=== PATIENT | female | born 1935 | race Caucasian/White ===

== ENCOUNTER 2017-09-22 09:17 | Emergency (ER) | payer MEDICARE, OTHER, SELFPAY ==
[2017-09-22 09:18] VITALS: BP 159/62; PULSE 60; RESP 14; TEMP 36.6; O2SAT 98; BMI 34.9
--- NOTE | 2017-09-22 10:05 | RAD_ITS ---
STUDY: X-RAY - LEFT ANKLE REASON FOR EXAM: Female, 82 years old. Left ankle pain. No history of injury. TECHNIQUE: 3 view(s) of the ankle. COMPARISON: None. FINDINGS: Normal visualized distal tibia and fibula. Normal medial and lateral malleoli. Normal tibiotalar articulation and ankle mortise. Normal visualized talus and calcaneus. The visualized subtalar, talonavicular, calcaneocuboid and tarsal articulations are normal. Soft tissue swelling of the lateral aspect of the ankle. RAD/Ankle min 3 Views IMPRESSION: Soft tissue swelling. No demonstrated acute osseous changes. Electronically Signed: Shahzad Santos MD at 10:31 EST Tel , Service support ,
[2017-09-22] MEDS: oxyCODONE 5 MG Tablet PO ×2 (10:07→10:48)
--- NOTE | 2017-09-22 10:28 | ED.DCSUM_ITS ---
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 She reports that she has left ankle pain that began 5 days ago. It is gradually gotten worse. She states that overnight has become acutely worse. She has a sharp pain is 9 out of 10 with walking or movement. Is 4 out of 10 at rest. She denies any numbness or weakness. She denies any trauma. She denies any constitutional symptoms. No fever, chills, nausea, or vomiting. She is on Xarelto for atrial fibrillation. Physical Examination: Vitals: Stable. Afebrile. General: Well-nourished and well-developed. Head: Normocephalic atraumatic. Neck: Supple, no lymphadenopathy. No JVD. Nontender. Cardiovascular: Regular rate and rhythm. 2 out of 6 systolic murmur. Respiratory: No respiratory distress. Clear to auscultation bilaterally. Abdominal: Soft, nontender, nondistended, normal bowel sounds. No guarding, rebound, or peritoneal signs. Back: Nontender. Extremities: Mild tenderness palpation over both the medial and lateral malleoli. There is minimal pain with range of motion. There is no overlying erythema or warmth to suggest a septic joint. She is a 2+ dorsalis pedis pulse bilaterally. Her foot is nontender. Her calf is nontender. Skin: Normal color, no rash. Neurologic: Alert and oriented ?3. Cranial nerves II through XII are intact. Normal strength and sensation. Psych: Normal affect. Test Results: Left ankle x-ray shows degenerative changes and no acute disease. Emergency Department Course and Treatment: Patient was treated with prednisone and Percocet p.o. She is resting comfortably. Treatment Plan: I had a prolonged discussion with the patient about her symptoms. I asked whether this is similar to the gout that she has had previously. She reports that the pain is worse than that. I suspect that she has gout in her left ankle. She does not want an arthrocentesis performed. I feel that is a reasonable course of action as I have no indication that this is a septic joint. She will be discharged on prednisone, Percocet, and Colace. Instructed to follow-up with her primary care physician in 1 week if not improving. Return to the emergency department for any worsening symptoms. Disposition: To home in improved and stable condition. Impression: 1. Left ankle pain, acute. 2. History of gout. This note was generated with [employer] dictation software. It may contain incorrect words, spelling, and punctuation that were not noted in review of the chart prior to signing ED Disposition - Plan for ED Patient: Chief Complaint: Lower Extremity Injury Instructions: ED Arthritis Gout Prescriptions: Oxycodone HCl/Acetaminophen [Percocet 5/325] 1 tablet PO Q6H PRN PRN 3 Days #20 tablet PRN Reason: Pain Docusate Sodium [Colace] 100 mg PO DAILY #20 capsule Prednisone 10 mg PO DAILY #63 tablet Referrals: Rohan Baker MD [Primary Care Provider] - 1 Week if not improving
== END 2017-09-22 10:53 | disposition home or self-care (01) ==
PROVIDERS: Emergency Provider Emergency Medicine; Family Provider Family Medicine; PCP Family Medicine
DX: M25.572 Pain in left ankle and joints of left foot (principal); I48.91 Unspecified atrial fibrillation; I10 Essential (primary) hypertension; Z79.01 Long term (current) use of anticoagulants; Z79.899 Other long term (current) drug therapy; Z86.39 Personal history of other endocrine, nutritional and metabolic disease
CPT/HCPCS: 73610; 99283

== ENCOUNTER 2017-09-25 21:59 | Emergency (ER) | payer MEDICARE, OTHER, SELFPAY ==
[2017-09-25 22:01] VITALS: BP 205/84; PULSE 65; RESP 15; TEMP 36.6; BMI 34.3
[2017-09-25 22:40] VITALS: BP 188/77; PULSE 68; RESP 16; O2SAT 95
[2017-09-25 23:18] VITALS: BP 169/63; PULSE 60; RESP 16; O2SAT 95
[2017-09-25 23:34] VITALS: BP 182/71; PULSE 56; RESP 16; O2SAT 96
[2017-09-25 23:53] VITALS: BP 169/67
--- NOTE | 2017-09-26 00:05 | ED.VISSUMM ---
- ER Visit Summary Date of Service: 09/26/17 Chief Complaint: Elevated blood pressure History of Present Illness: The patient is a [address] of hypertension who presents because of elevated blood pressure. Blood pressure was assessed because son noted that her cheeks were flushed. She was with her daughter who is a patient in the emergency department when her cheeks became flushed. Son states her blood pressure was elevated earlier this evening. She states systolic is normally in the 140s. She believes she is under stress because her daughter has metastatic small cell carcinoma the lung was brought to the emergency department because of fever chills and not doing well. She denies headache, visual, ocular or auditory symptoms. Denies trouble with speech or swallowing. She denies any chest pain or back pain. She denies nausea vomiting. She denies paresthesia, anesthesia moderates. She denies trouble walking or problems with balance. She states she took her blood pressure medicine. Please review written note for complete detail Physical Examination: Patient is a pleasant elderly woman who appears in no distress. Initial blood pressure was 205/84. Heart rate is 68, respirations 16 and pulse ox 95% on room air. Temperature is 97.9. Head is atraumatic normocephalic. Pupils are equal round reactive. Extraocular muscles are intact. TMs are pearly white with landmarks noted. Nares patent with no drainage. Posterior pharynx without erythema or exudate. Uvula is midline. There is no dysphonia or dysphasia. Trachea is midline. There is no stridor with auscultation of the neck. Difficult to see fundi. Trach is midline. There is no carotid bruits noted. Heart is regular without murmur, gallop or rub. S1 and S2 are normal. Lungs are clear to auscultation with good movement of air bilaterally. Abdomen is soft nontender. Patient is alert and oriented ?3. Motor is 5 over 5. Sensory is intact. DTRs are symmetric with no clonus or Babinski sign. Cranial 2 through 12 are intact. Cerebellar testing is normal. Gait was observed that she walked from daughter's room to room 9 and is normal. Test Results: Initial blood pressure at 2201 was 205/84. Blood pressure was reassessed at 2240 and was 188/71. Blood pressure was assessed again at 2318 and blood pressure was 160/63. Most recent blood pressure at 2354 was 167/67. Emergency Department Course and Treatment: Patient admits she is under stress is asymptomatic will have blood pressure reassessed several times. If there is no improvement will obtain BMP and UA looking for endorgan injury. Treatment Plan: Discharge to home with appropriate home-going instruction and follow-up with primary care physician Dr. Baker in 1-2 weeks to have blood pressure reassessed. Disposition: Discharge to home in stable condition Impression: Asymptomatic hypertension in patient with hypertension This note was generated with [employer] - 3P dictation software. It may contain incorrect words, spelling, and punctuation that were not noted in review of the chart prior to signing ED Disposition - Plan for ED Patient: Disposition: Home or Assisted Living Chief Complaint: Hypertension Instructions: ED HTN Established Referrals: Rohan Baker MD [Primary Care Provider] - 1-2 Weeks Additional Instructions: You should make an appointment with Dr. Baker to have your blood pressure reassessed in 1-2 weeks. If you have any symptoms that are concerning i.e. headache, change in your vision, trouble with speech or swallowing, numbness tingling in your extremities or weakness of your extremities, problems with balance or walking return to the emergency department immediately
[2017-09-26 00:17] VITALS: BP 166/66; PULSE 86; RESP 16; O2SAT 98
== END 2017-09-26 00:17 | disposition home or self-care (01) ==
PROVIDERS: Emergency Provider Emergency Medicine; Family Provider Family Medicine; PCP Family Medicine
DX: I10 Essential (primary) hypertension (principal); K21.9 Gastro-esophageal reflux disease without esophagitis; E03.9 Hypothyroidism, unspecified; Z87.891 Personal history of nicotine dependence; I48.91 Unspecified atrial fibrillation; Z79.899 Other long term (current) drug therapy; Z79.01 Long term (current) use of anticoagulants
CPT/HCPCS: 99282

== ENCOUNTER → 2017-11-05 09:51 | Outpatient (CLI) | payer MEDICARE, OTHER, SELFPAY ==
[2017-11-05 12:29] LABS: AST(SGOT) 21 U/L (15-37); Alanine Aminotransfer ALT/SGPT 25 U/L (13-56); Albumin, Serum 3.7 g/dL (3.2-5.0); Alkaline Phosphatase 90 U/L (45-117); Bilirubin, Direct 0.11 mg/dL (0.00-0.30); Cholesterol 172 mg/dL (200); Globulin 3.5 g/dL (2.2-4.2); High Density Lipoprotein 90 mg/dL; Protein, Total 7.2 g/dL (6.4-8.2); T4 Free Direct 1.49 ng/dL (0.76-1.46); Thyroid Stim Hormone (TSH) 2.83 uIU/mL (0.358-3.74); Triglycerides 98 mg/dL; Very Low Density Lipoprotein 20 mg/dL (5-40)
--- NOTE | 2017-11-05 12:33 | PFT ---
INTRODUCTION: The patient is an 82-year-old female currently under the care of Dr. Mancini that presents for pulmonary function testing secondary to a diagnosis of shortness of breath. Respiratory therapy reports good patient effort and reports no other concerns. Bronchodilators were used during testing. INTERPRETATION: Forced expiration spirometry demonstrates no evidence of a large airways obstructive ventilatory defect. There was no significant response to aerosolized bronchodilators, based upon strict ATS criteria. Spirograms are of good quality and plateau normally. Body plethysmography was performed and reveals a decreased TLC to 4.1 L, 84% of predicted, indicative of a mild restrictive ventilatory defect. Diffusing capacity by single breath CO is moderately reduced at 57% of predicted. IMPRESSION: These pulmonary function studies demonstrate the presence of a mild restrictive ventilatory impairment with a disproportionate reduction in diffusing capacity, which could be related to an underlying pulmonary vascular disorder, such as pulmonary hypertension. There are no previous pulmonary function studies available for comparison.
== END ==
PROVIDERS: Family Provider Family Medicine; PCP Family Medicine; Visit Provider Internal Medicine Cardiovascular Disease
DX: I48.92 Unspecified atrial flutter (principal); I48.0 Paroxysmal atrial fibrillation; I27.21 Secondary pulmonary arterial hypertension; E78.5 Hyperlipidemia, unspecified; Z79.899 Other long term (current) drug therapy
CPT/HCPCS: 36415; 80061; 80076; 84439; 84443; 94060; 94726; 94729

== ENCOUNTER 2018-02-14 10:41 | Observation (INO) | payer MEDICARE, OTHER, SELFPAY ==
[2018-02-14] VITALS (14 sets, daily range): BP systolic 107–208; BP diastolic 56–103; PULSE 48–59; RESP 14–19; TEMP 36.6–36.8; O2SAT 93–100; BMI 35.0; BMI 35.2
--- NOTE | 2018-02-14 11:05 | CT_ITS ---
STUDY: CT BRAIN WITHOUT CONTRAST REASON FOR EXAM: Female, 82 years old. Dizziness. Hypertension. Stroke RADIATION DOSAGE (If Supplied By Facility): CTDIvol = ( 44.99 ) mGy, DLP = ( 812.98 ) mGycm TECHNIQUE: Transaxial CT imaging of the brain was performed without administration of intravenous contrast material. Individualized dose optimization techniques were used for this CT. COMPARISON: September 23, 2014 FINDINGS: Normal soft tissue structures. Normal calvarium. There is mild cerebral atrophy with widening of the extra-axial spaces and ventricular dilatation. There are areas of decreased attenuation within the white matter tracts of the supratentorial brain, consistent with microvascular disease changes. Normal basal ganglia and thalami. Normal brainstem. Normal cerebellum. There is no intracranial hemorrhage. There are no findings of an acute ischemic infarction. Normal visualized paranasal sinuses. CT/Brain/Head without Contrast IMPRESSION: Chronic involutional changes of the brain. No hemorrhage. Electronically Signed: Frederick Gunderson MD at 12:50 EDT , Service support ,
--- NOTE | 2018-02-14 11:05 | EKG12_ITS ---
Test Reason : DIZZY Blood Pressure : / mmHG Vent. Rate : 053 BPM Atrial Rate : 053 BPM P-R Int : 192 ms QRS Dur : 094 ms QT Int : 486 ms P-R-T Axes : 026 042 024 degrees QTc Int : 456 ms Sinus bradycardia Otherwise normal ECG Confirmed by ANJUM HARLEY ([id number]), purchase request editor ANGELIKA NGUYEN ([id number]) on 02/18/2018 1:43:51 PM Referred By: YELENA Confirmed By:ANJUM HARLEY
--- NOTE | 2018-02-14 11:50 | RAD_ITS ---
STUDY: X-RAY CHEST REASON FOR EXAM: Female, 82 years old. Hypertension. Dizziness. TECHNIQUE: Single AP portable view of the chest. COMPARISON: December 16, 2016 FINDINGS: There are monitoring devices. The lungs are clear and expanded. There is no demonstrated pleural abnormality. Normal size heart. Normal mediastinum and vinod. Normal visualized pulmonary arteries. Normal visualized aortic arch and descending thoracic aorta. There is demineralization of the osseous structures. Normal visualized ribs, clavicles, and shoulders. There is no demonstrated abnormality of the visualized soft tissue structures of the upper abdomen. RAD/Chest 1 View IMPRESSION: Normal x-ray examination of the chest. Electronically Signed: Frederick Gunderson MD at 12:02 EDT , Service support ,
[2018-02-14 12:31] LABS: Bedside Glucose 98 mg/dL (70-110)
[2018-02-14 13:00] LABS: Absolute Lymphocyte Count 1.84 X10^3/ul (0.83-4.51); Absolute Neutrophil Count 6.2 X10^3/uL (2.0-7.7); Basophil# 0.04 X10^3/uL; Basophil% 0.5 % (0-1); Eosinophil# 0.16 X10^3/uL; Eosinophils% 1.8 % (0-5); Hematocrit 37.9 % (37-47); Hemoglobin 11.4 g/dl (12.0-15.0); Lymphocyte # 1.84 X10^3/ul (4.0); Lymphocyte % 20.7 % (19-41); Mean Corp Hgb Conc 30.1 g/gl (32-36); Mean Corpuscular Hgb 22.8 pg (27.0-32.0); Mean Platelet Vol. 9.7 fl (6.2-12.0); Monocyte# 0.61 X10^3/uL; Monocyte% 6.9 % (0-10); Neutrophil # 6.21 X10^3/uL (2.7-7.7); Neutrophil % 69.9 % (47-70); Platelet Count 250 K/mm3 (150-450); RBC Distribution Width CV 16.9 % (11.6-14.6); Red Blood Count 4.99 M/mm3 (4.2-5.4); White Blood Count 8.9 K/mm3 (4.4-11.0)
[2018-02-14 13:01] LABS: POSITIVE COUNT NO; POSITIVE DIFFERENTIAL NO; POSITIVE MORPHOLOGY NO
[2018-02-14 13:04] LABS: International Normalized Ratio 2.9; Prothrombin Time (Protime)PT. 30.2 SECONDS (11.7-14.9)
[2018-02-14 13:05] LABS: Partial Thromboplast Time 33.7 Seconds (24.1-36.2)
[2018-02-14 13:16] LABS: Anion Gap 6 (5-15); BUN 33 mg/dL (7-18); BUN/Creat Ratio 22.8 RATIO (10-20); Calcium,Total 9.5 mg/dL (8.5-10.1); Chloride 102 mmol/L (98-107); Creatinine, Serum 1.45 mg/dL (0.55-1.02); EST Glomerular Filtration Rate 37 mL/min (>60); Est Glom Filt Rate - Afr Amer 44 mL/min (>60); Estimated Creatinine Clearance 25.83 ml/min; Glucose 93 mg/dL (74-106); Potassium 4.5 mmol/L (3.5-5.1); Sodium Level 138 mmol/L (136-145)
--- NOTE | 2018-02-14 13:26 | ED.VISSUMM ---
- ER Visit Summary Date of Service: 02/14/18 Chief Complaint: [Dizziness] History of Present Illness: The patient is a 82 F [presents to the emergency department complaint of dizziness for the last 3 days. Patient states that her tongue is tingling mostly involving the distal half of the tongue. Patient denies any focal weakness. She denies any speech difficulty. Patient denies any visual changes. Patient denies any falls or head injuries. Patient is currently on Xarelto due to history of atrial fibrillation. Patient denies any new medications. She denies fever or recent illness. Patient describes the dizziness more of a lightheaded feeling rather than a vertiginous feeling. Patient can feel lightheaded weather at rest and sitting or standing and walking. She denies any chest pain or shortness of breath. Patient denies any palpitations.] Physical Examination: [HEENT-PERRLA, EOMI. Cranial nerves II through XII grossly intact. TMs clear. Mucous membranes moist. No adenopathy. Cardiovascular-regular rate and rhythm without murmur or ectopy Lungs-clear to auscultation, chest wall stable without crepitus or subcu emphysema Abdomen-normoactive bowel sounds, soft, nontender, no rebound or rigidity, no peritoneal signs. Neuro kzlq-ejpaei-fbtn and heel huang testing within normal limits, negative Romberg, negative pronator drift, fundi benign, no focal weakness. Extremities-intact ?4, normal range of motion, normal pulses, atraumatic] Test Results: [EKG obtained on arrival showed sinus bradycardia with a ventricular rate of 53 bpm with no acute ST segment changes. CBC with differential obtained showed a white count of 8.9, hemoglobin 11, hematocrit 38, platelets 250. Chemistries unremarkable. INR was 2.9. Troponin was less than 0.015. Calcium was 9.5. CT scan of the brain without contrast showed chronic involutional changes. Chest x-ray showed nothing acute.] Emergency Department Course and Treatment: [] Treatment Plan: [Admit for further workup and evaluation] Disposition: [Admit] Impression: [Dizziness-etiology uncertain Paresthesias of tongue] This note was generated with [employer] System[employer] software. It may contain incorrect words, spelling, and punctuation that were not noted in review of the chart prior to signing ED Disposition - Plan for ED Patient: Chief Complaint: Dizziness Referrals: Urban Ceja MD [Primary Care Provider] -
--- NOTE | 2018-02-14 13:30 | ED.DCSUM_ITS ---
- ER Visit Summary Date of Service: 02/14/18 Chief Complaint: [Dizziness] History of Present Illness: The patient is a 82 F [presents to the emergency department complaint of dizziness for the last 3 days. Patient states that her tongue is tingling mostly involving the distal half of the tongue. Patient denies any focal weakness. She denies any speech difficulty. Patient denies any visual changes. Patient denies any falls or head injuries. Patient is currently on Xarelto due to history of atrial fibrillation. Patient denies any new medications. She denies fever or recent illness. Patient describes the dizziness more of a lightheaded feeling rather than a vertiginous feeling. Patient can feel lightheaded weather at rest and sitting or standing and walking. She denies any chest pain or shortness of breath. Patient denies any palpitations.] Physical Examination: [HEENT-PERRLA, EOMI. Cranial nerves II through XII grossly intact. TMs clear. Mucous membranes moist. No adenopathy. Cardiovascular-regular rate and rhythm without murmur or ectopy Lungs-clear to auscultation, chest wall stable without crepitus or subcu emphysema Abdomen-normoactive bowel sounds, soft, nontender, no rebound or rigidity, no peritoneal signs. Neuro nkom-tcxhsd-vtrw and heel hunag testing within normal limits, negative Romberg, negative pronator drift, fundi benign, no focal weakness. Extremities-intact ?4, normal range of motion, normal pulses, atraumatic] Test Results: [EKG obtained on arrival showed sinus bradycardia with a ventricular rate of 53 bpm with no acute ST segment changes. CBC with differential obtained showed a white count of 8.9, hemoglobin 11, hematocrit 38 , platelets 250. Chemistries unremarkable. INR was 2.9. Troponin was less than 0.015. Calcium was 9.5. CT scan of the brain without contrast showed chronic involutional changes. Chest x-ray showed nothing acute.] Emergency Department Course and Treatment: [] Treatment Plan: [Admit for further workup and evaluation] Disposition: [Admit] Impression: [Dizziness-etiology uncertain Paresthesias of tongue] This note was generated with [employer] software. It may contain incorrect words, spelling, and punctuation that were not noted in review of the chart prior to signing ED Disposition - Plan for ED Patient: Chief Complaint: Dizziness Referrals: Urban Ceja MD [Primary Care Provider] -
--- NOTE | 2018-02-14 14:36 | NURSING ---
CALLED TO ER CHARGE-NO ANSWER, WAS BUSY. CALLED 2 TIMES W/ NO ANSWER. CALLED ER AND TOLD THEM CHARGE PHONE WAS BUSY AND WAS OKAY TO SEND UP PT. CALLED AT 1436.
--- NOTE | 2018-02-14 14:40 | PCM.CONS.GEN ---
Problem List (1) Light headedness Status: Acute Reason for Consult Date of Consultation: 02/14/18 Reason for Consultation: light headedness and tongue tingling History of Present Illness: The patient is a 82 year old CF with PMH HTN, HLD, Afib on Xarelto, hypothyroidism, H/O lower back surgery admitted with light headedness and tongue tingling. Per patient she has been having some light headedness/dizziness for the past 1 week, denies any fall, or balance issues, does not use cane or walker to ambulate, does not need any assistance with his ADLs, denies any ear ache, or tinnitus. Per patient has been having tingling in the tongue for the past 2-3 days, but denies any change in taste sensation, facial droop, denies any CONNOR, visual disturbances, speech disturbances, focal motor weakness or sensory loss. Denies any syncope. 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 Hypothyroidism (Chronic) E03.9 GERD (gastroesophageal reflux disease) (Chronic) K21.9 Hyperlipidemia (Chronic) E78.5 Hypertension (Chronic) I10 Paroxysmal atrial fibrillation (Chronic) I48.0 Allergies No Known Allergies Allergy (Verified 02/14/18 10:42) Home Medications: Ambulatory Orders Medication Instructions Recorded Valsartan/Hydrochlorothiazide 1 tab PO DAILY 10/01/16 [Diovan Hct 320-25 mg Tablet] Amiodarone HCl [Cordarone] 200 mg PO DAILY 09/22/17 Levothyroxine Sodium [Levoxyl] 100 mcg PO DAILY 09/22/17 Metoprolol Succinate 100 mg PO DAILY 09/22/17 simvastatin 40 mg tablet 40 mg PO DAILY 10/13/17 lansoprazole 30 mg capsule,delayed 30 mg PO DAILY cap 10/14/17 release Acetaminophen [Tylenol] 650 mg PO QHS 02/14/18 Rivaroxaban [Xarelto] 15 mg PO DAILY 02/14/18 Thera-Tears 2 drop EACH EYE BID 02/14/18 Surgical History: Surgical History (Last Updated 02/14/18 @ 10:49 by Nehal Kaufman) History of left heart catheterization (Chronic) Onset Date: 09/30/14 Z98.890 H/O knee surgery Z98.890 History of Z98.891 History of back surgery Z98.890 Surgical History: no surgical history, - - , knee repair Psychiatric History: No pertinent psych hx [employer] History: 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 Lives: - - with son Smoking Status: Former smoker Alcohol: None Drugs: None - *Family History Maternal History Items: No pertinent history Paternal History Items: No pertinent history Review of Systems Constitutional: Reports: - - complete ROS negative except as documented in HPI Patient Problems: Active and Suspected Problems (Last Reviewed 10/14/17 @ 13:28 by Armida Blackburn) Light headedness (Acute) - Physical Exam General: Alert HEENT: Normocephalic Neck: Supple Lungs: Clear to auscultation Cardiovascular: Normal S1, Normal S2 Abdomen: Bowel Sounds Present Extremities: No cyanosis Skin: No rashes Musculoskeletal: No Tenderness to Palpation of Joints or Extremities Neurological: - - consious, alert, AoAx3, CN 2-12 grossly intact, power 5/5 all 4 extremities, no sensory loss, no cerebellar signs, gait deferred, Reflexes + B/L B/S/T/K/A Vital Signs Temp Pulse Resp BP Pulse Ox 98.3 F 53 L 16 204/75 H 94 02/14/18 10:43 02/14/18 13:59 02/14/18 13:59 02/14/18 13:59 02/14/18 13:59 Oxygen Flow Rate (L/min) 2 Oxygen Delivery Method Room Air Weight: 92.533 kg Body Mass Index (BMI) 35.0 Finger Stick Blood Glucose 98 Laboratory Tests Past 24 Hrs 02/14/18 02/14/18 02/14/18 12:43 12:43 12:43 WBC 8.9 RBC 4.99 Hgb 11.4 L Hct 37.9 MCV 76.0 L MCH 22.8 L MCHC 30.1 L RDW 16.9 H RDW Differential 47.0 H Plt Count 250 MPV 9.7 Immature Gran % (Auto) 0.200 Neut % (Auto) 69.9 Lymph % (Auto) 20.7 [place] % (Auto) 6.9 Eos % (Auto) 1.8 Baso % (Auto) 0.5 Absolute Neuts (auto) 6.2 Absolute Lymphs (auto) 1.84 Total Counted Not Reportable PT 30.2 H INR 2.9 APTT 33.7 Sodium 138 Potassium 4.5 Chloride 102 Carbon Dioxide 30.0 Anion Gap 6 BUN 33 H Creatinine 1.45 H Estim Creat Clear Calc 25.83 Est GFR (MDRD) Af Amer 44 L Est GFR (MDRD) Non-Af 37 L BUN/Creatinine Ratio 22.8 H Glucose 93 Calcium 9.5 Troponin I < 0.015 POC Glucose 02/14/18 12:27 POC Glucose 98 Assessment/Plan All Active Problems (Last Reviewed 10/14/17 @ 13:28 by Armida Blackburn) Light headedness (Acute) Secondary pulmonary arterial hypertension (Resolved) The patient is a 82 year old CF with PMH HTN, HLD, Afib on Xarelto, hypothyroidism, H/O lower back surgery admitted with light headedness/dizziness and tongue tingling. Per patient she has been having some light headedness for the past 1 week, denies any fall, or balance issues, does not use cane or walker to ambulate, does not need any assistance with his ADLs, denies any ear ache, or tinnitus. Per patient has been having tingling in the tongue for the past 2-3 days, but denies any change in taste sensation, facial droop, denies any CONNOR, visual disturbances, speech disturbances, focal motor weakness or sensory loss. Denies any syncope. Impression Light headed Tingling in the tongue/paresthesias Uncontrolled HTN Plan -MRI brain and MRA head/neck -On Xarelto -On Zocor -Better BP control, will defer to primary team -Check Orthostatic vitals -GI/DVT prophylaxis -Please call with questions if any -Thank you for allowing us to participate in patients care and management I spent 60 minutes of critical care time taking history, doing physical examination, reviewing medical records, coordinating care and counseling the patient and her son Code Visit Inpatient E&M: [id number] Init Hosp L3
--- NOTE | 2018-02-14 14:49 | CON.PCM_ITS ---
Problem List (1) Light headedness Status: Acute Reason for Consult Date of Consultation: 02/14/18 Reason for Consultation: light headedness and tongue tingling History of Present Illness: The patient is a 82 year old CF with PMH HTN, HLD, Afib on Xarelto, hypothyroidism, H/O lower back surgery admitted with light headedness and tongue tingling. Per patient she has been having some light headedness/ dizziness for the past 1 week, denies any fall, or balance issues, does not use cane or walker to ambulate, does not need any assistance with his ADLs, denies any ear ache, or tinnitus. Per patient has been having tingling in the tongue for the past 2-3 days, but denies any change in taste sensation, facial droop, denies any CONNOR, visual disturbances, speech disturbances, focal motor weakness or sensory loss. Denies any syncope. 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 Hypothyroidism (Chronic) E03.9 GERD (gastroesophageal reflux disease) (Chronic) K21.9 Hyperlipidemia (Chronic) E78.5 Hypertension (Chronic) I10 Paroxysmal atrial fibrillation (Chronic) I48.0 Allergies No Known Allergies Allergy (Verified 02/14/18 10:42) Home Medications: Ambulatory Orders Medication Instructions Recorded Valsartan/Hydrochlorothiazide 1 tab PO DAILY 10/01/16 [Diovan Hct 320-25 mg Tablet] Amiodarone HCl [Cordarone] 200 mg PO DAILY 09/22/17 Levothyroxine Sodium [Levoxyl] 100 mcg PO DAILY 09/22/17 Metoprolol Succinate 100 mg PO DAILY 09/22/17 simvastatin 40 mg tablet 40 mg PO DAILY 10/13/17 lansoprazole 30 mg capsule,delayed 30 mg PO DAILY cap 10/14/17 release Acetaminophen [Tylenol] 650 mg PO QHS 02/14/18 Rivaroxaban [Xarelto] 15 mg PO DAILY 02/14/18 Thera-Tears 2 drop EACH EYE BID 02/14/18 Surgical History: Surgical History (Last Updated 02/14/18 @ 10:49 by Nehal Kaufman) History of left heart catheterization (Chronic) Onset Date: 09/30/14 Z98.890 H/O knee surgery Z98.890 History of Z98.891 History of back surgery Z98.890 Surgical History: no surgical history, - - , knee repair Psychiatric History: No pertinent psych hx 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 Lives: - - with son Smoking Status: Former smoker Alcohol: None Drugs: None - *Family History Maternal History Items: No pertinent history Paternal History Items: No pertinent history Review of Systems Constitutional: Reports: - - complete ROS negative except as documented in HPI Patient Problems: Active and Suspected Problems (Last Reviewed 10/14/17 @ 13:28 by Armida Blackburn) Light headedness (Acute) - Physical Exam General: Alert HEENT: Normocephalic Neck: Supple Lungs: Clear to auscultation Cardiovascular: Normal S1, Normal S2 Abdomen: Bowel Sounds Present Extremities: No cyanosis Skin: No rashes Musculoskeletal: No Tenderness to Palpation of Joints or Extremities Neurological: - - consious, alert, AoAx3, CN 2-12 grossly intact, power 5/5 all 4 extremities, no sensory loss, no cerebellar signs, gait deferred, Reflexes + B /L B/S/T/K/A Vital Signs Temp Pulse Resp BP Pulse Ox 98.3 F 53 L 16 204/75 H 94 02/14/18 10:43 02/14/18 13:59 02/14/18 13:59 02/14/18 13:59 02/14/18 13:59 Oxygen Flow Rate (L/min) 2 Oxygen Delivery Method Room Air Weight: 92.533 kg Body Mass Index (BMI) 35.0 Finger Stick Blood Glucose 98 Laboratory Tests Past 24 Hrs 02/14/18 02/14/18 02/14/18 12:43 12:43 12:43 WBC 8.9 RBC 4.99 Hgb 11.4 L Hct 37.9 MCV 76.0 L MCH 22.8 L MCHC 30.1 L RDW 16.9 H RDW Differential 47.0 H Plt Count 250 MPV 9.7 Immature Gran % (Auto) 0.200 Neut % (Auto) 69.9 Lymph % (Auto) 20.7 [place] % (Auto) 6.9 Eos % (Auto) 1.8 Baso % (Auto) 0.5 Absolute Neuts (auto) 6.2 Absolute Lymphs (auto) 1.84 Total Counted Not Reportable PT 30.2 H INR 2.9 APTT 33.7 Sodium 138 Potassium 4.5 Chloride 102 Carbon Dioxide 30.0 Anion Gap 6 BUN 33 H Creatinine 1.45 H Estim Creat Clear Calc 25.83 Est GFR (MDRD) Af Amer 44 L Est GFR (MDRD) Non-Af 37 L BUN/Creatinine Ratio 22.8 H Glucose 93 Calcium 9.5 Troponin I < 0.015 POC Glucose 02/14/18 12:27 POC Glucose 98 Assessment/Plan All Active Problems (Last Reviewed 10/14/17 @ 13:28 by Armida Blackburn) Light headedness (Acute) Secondary pulmonary arterial hypertension (Resolved) The patient is a 82 year old CF with PMH HTN, HLD, Afib on Xarelto, hypothyroidism, H/O lower back surgery admitted with light headedness/dizziness and tongue tingling. Per patient she has been having some light headedness for the past 1 week, denies any fall, or balance issues, does not use cane or walker to ambulate, does not need any assistance with his ADLs, denies any ear ache, or tinnitus. Per patient has been having tingling in the tongue for the past 2-3 days, but denies any change in taste sensation, facial droop, denies any CONNOR, visual disturbances, speech disturbances, focal motor weakness or sensory loss. Denies any syncope. Impression Light headed Tingling in the tongue/paresthesias Uncontrolled HTN Plan -MRI brain and MRA head/neck -On Xarelto -On Zocor -Better BP control, will defer to primary team -Check Orthostatic vitals -GI/DVT prophylaxis -Please call with questions if any -Thank you for allowing us to participate in patients care and management I spent 60 minutes of critical care time taking history, doing physical examination, reviewing medical records, coordinating care and counseling the patient and her son Code Visit Inpatient E&M: 47337 Init Hosp L3
--- NOTE | 2018-02-14 14:52 | MRI_ITS ---
STUDY: MRI BRAIN WITHOUT CONTRAST REASON FOR EXAM: Female, 82 years old. Numbness and tingling TECHNIQUE: Standardized multiplanar fat and water weighted pulse sequences were obtained. COMPARISON: CT of the brain on February 14, 2018 FINDINGS: Moderate atrophy and periventricular white matter ischemic changes without mass effect or restricted diffusion.. Normal bilateral basal ganglia. Normal thalami. There is no extra-axial fluid accumulation. Normal flow voids within the major intracranial circulation suggesting patency by spin echo criteria. Partial empty sella deformity. Normal, infundibular stalk, optic chiasm and hypothalamus. Normal tectal plate and pineal gland. Normal midbrain, marco antonio and medulla. Normal cerebellum. Normal basal cisterns. Normal bilateral temporal bones. Normal bilateral internal auditory canals. There are postsurgical changes of the orbits.. There are mucous retention cysts within the maxillary sinuses. Normal calvarium and skull base. Normal visualized soft tissue structures. Normal visualized upper cervical spine. MRI/Brain without Contrast IMPRESSION: Moderate atrophy and periventricular white matter ischemic changes. No evidence for acute infarct Electronically Signed: David Larios MD at 16:52 EDT , Service support ,
--- NOTE | 2018-02-14 14:52 | MRI_ITS ---
STUDY: MRA OF THE HEAD WITHOUT CONTRAST REASON FOR EXAM: Female, 82 years old. Stroke TECHNIQUE: 3-D mynt-bu-dklpca (TOF) imaging was performed with MIPs. The study was performed unenhanced. COMPARISON: None. FINDINGS: Normal bilateral petrous carotid arteries. Plaquing of the right cavernous carotid artery with a normal supraclinoid bifurcation. Plaquing of the left cavernous carotid artery with a normal supraclinoid bifurcation. Normal right A1 segments of the anterior cerebral artery. Normal left A1 segments of the anterior cerebral artery. Anterior communicating artery not visualized consistent with developmental variant). Normal bilateral A2 segments of the anterior cerebral arteries. Normal right M1 and M2 segments of the middle cerebral arteries, with a normal M1 bifurcation. Normal left M1 and M2 segments of the middle cerebral arteries, with a normal M1 bifurcation. Right posterior communicating artery not visualized consistent with normal variant Normal left posterior communicating artery (PCOM). Normal bilateral vertebral arteries. Normal basilar artery with a normal basilar bifurcation. The visualized bilateral superior cerebellar (SCA) arteries are normal. Normal bilateral P1, P2 and visualized P3 segments of the posterior cerebral arteries. There is no demonstrated aneurysm of the [place]. There is no major vessel occlusion or hemodynamically significant stenosis. There is no demonstrated abnormality of the visualized brain. MRI/MRA Head ONLY without Contrast IMPRESSION: Mild atherosclerotic disease. No evidence for hemodynamically significant segmental stenosis or occlusive thrombus. Electronically Signed: David Larios MD at 16:55 EDT , Service support ,
--- NOTE | 2018-02-14 14:52 | MRI_ITS ---
STUDY: MRA NECK WITHOUT CONTRAST REASON FOR EXAM: Female, 82 years old. Numbness and tingling with dizziness TECHNIQUE: Source images were obtained, MIPs were performed. The study was performed unenhanced. COMPARISON: None. FINDINGS: RIGHT CAROTID ARTERIES: Normal right common carotid artery (CCA). Normal right common carotid bulb. Normal origin of the right internal carotid (ICA) artery without a hemodynamically significant stenosis. Normal visualized cervical portion of the right internal carotid artery. Normal origin of the right external carotid artery (ECA). LEFT CAROTID ARTERIES: Normal left common carotid artery (CCA). Normal left common carotid bulb. Normal origin of the left internal carotid (ICA) artery without a hemodynamically significant stenosis. Normal visualized cervical portion of the left internal carotid artery. Normal origin of the left external carotid artery (ECA). VERTEBRAL ARTERIES: Normal antegrade flow within the bilateral vertebral artery without a hemodynamically significant stenosis. The right vertebral is dominant. There is diffusely narrowed left vertebral which is consistent with normal variant MRI/MRA Neck without Contrast IMPRESSION: Normal bilateral cervical carotid and vertebral arteries. Electronically Signed: David Larios MD at 16:54 EDT , Service support ,
--- NOTE | 2018-02-14 17:03 | CHAPLAIN ---
Type of Pastoral Visit _x__ Initial Visit ___ Follow-up Visit ___ On-call Visit ___ General Patient Visit ___ Spiritual Assessment ___ Family Conference ___ Bereavement ___ Rapid Response ___ Code Blue ___ Other (describe below) Pastoral Care Referral From _x__ Patient ___ Family ___ Nurse ___ Physician ___ Field Service Rep ___ Head Teacher ___ Other (describe below) Sacrament/Intervention x__ Active listening ___ Anointing ___ Religious ___ Bereavement ___ Communion ___ Joellen exploration ___ ___ Life review x___ Prayer ___ Reconciliation ___ Sacrament of Sick ___ Supportive presence ___ Wedding ___ Other (describe below) Pastoral Comments on admission patient had stated that she wanted [facility] to be contacted; however at this time pt has decided to wait on that until it is determined if she is staying beyond tomorrow; pt said that she is already feeling better and does not have any other concerns at present; pt would welcome a prayer and that is given; son of pt is with her
--- NOTE | 2018-02-14 20:31 | HP.PCM_ITS ---
Problem List (1) Prickly tongue Status: Acute (2) Light headedness Status: Acute History of Present Illness Date of Admission: 02/14/18 Chief Complaint: Lightheadedness ?1 week, prickly tongue ?3-4 days The patient is a 82 year old F was seen in the emergency room at [facility] with a chief complaint of lightheadedness ?1 week and a feeling that she described as a prickly tongue ?3-4 days. Patient denied any speech disturbances, she denied any visual disturbance, she denied any focal motor weakness. Workup in the emergency room included a CT of the brain which showed no acute process, patient had labs drawn which were remarkable for a creatinine of 1.45, BUN of 33, and hemoglobin of 11.4. On physical examination in the emergency room, patient was alert and oriented ?3 and in no distress, I could not detect any focal motor deficits. Patient will be placed in observation status on PCU, she was seen in the emergency room by neurology who did not feel it was likely that she had a stroke, patient will have an MRI of the brain as well as an MRA of the head and neck performed, neurochecks will be carried out while on PCU until MRI results are available. 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 Hypothyroidism (Chronic) E03.9 GERD (gastroesophageal reflux disease) (Chronic) K21.9 Hyperlipidemia (Chronic) E78.5 Hypertension (Chronic) I10 Paroxysmal atrial fibrillation (Chronic) I48.0 Allergies No Known Allergies Allergy (Verified 02/14/18 10:42) Home Medications: Ambulatory Orders Medication Instructions Recorded Valsartan/Hydrochlorothiazide 1 tab PO DAILY 10/01/16 [Diovan Hct 320-25 mg Tablet] Amiodarone HCl [Cordarone] 200 mg PO DAILY 09/22/17 Levothyroxine Sodium [Levoxyl] 100 mcg PO DAILY 09/22/17 Metoprolol Succinate 100 mg PO DAILY 09/22/17 simvastatin 40 mg tablet 40 mg PO DAILY 10/13/17 lansoprazole 30 mg capsule,delayed 30 mg PO DAILY cap 10/14/17 release Acetaminophen [Tylenol] 650 mg PO QHS 02/14/18 Rivaroxaban [Xarelto] 15 mg PO DAILY 02/14/18 Thera-Tears 2 drop EACH EYE BID 02/14/18 Surgical History: Surgical History (Last Updated 02/14/18 @ 10:49 by Nehal Kaufman) History of left heart catheterization (Chronic) Onset Date: 09/30/14 Z98.890 H/O knee surgery Z98.890 History of Z98.891 History of back surgery Z98.890 Surgical History: appendectomy, total knee arthroplasty, - - , knee repair, lumbar spinal surgery to remove benign tumor, 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, removal of skin cancer from her face Psychiatric History: No pertinent psych 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 Denies: Chest Pain, Claudication, Chest Pressure, Chest Tightness, Edema, Heaviness, Orthopnea, Palpitations, Paroxysmal Noc. Dyspnea, Syncope Respiratory: Denies: Cough, Hemoptysis, Pleuritic Pain, Shortness of Breath, Shortness of breath at rest, Shortness of breath upon exertion, Sputum production, Wheezing Gastrointestinal: Denies: Abdominal Pain, Constipation, Diarrhea, Hematemesis, Hematochezia, Nausea, Melena, Vomiting Genitourinary: Denies: Dysuria, Frequency, Hematuria, Hesitancy, Incontinence, Nocturia, Urgency Gynecological: Denies: Breast symptoms Musculoskeletal: Denies: Back Pain, Foot Pain, Hand Pain, Joint Pain, Joint stiffness, Joint swelling, Joint Tenderness, Leg Pain Skin: Denies: Dryness, Pruritis, Rash Neurological: Reports: - - Complains of prickly tongue. Denies: Blurred vision, Double vision, Change in Speech, Slurred speech, Difficulty swallowing, Focal weakness, Headaches, Incoordination, Numbness, Tingling Psychiatric: Denies: Anxiety, Depression, Homicidal Ideations, Suicidal Ideations Endocrine: Denies: Change in Body Habitus, Heat/ Cold Intolerance, Polydipsia, Polyuria Hematologic/ Lymphatic: Denies: Adenopathy, Anemia, Easy Bruising, Easy Bleeding , Petechiae, Purpura VTE Information - Inpt Only VTE Present on Admission: No VTE Mechan Device Prophylaxis: None VTE Pharm Prophylaxis ordered?: No Reason prophylaxis not ordered:: Medical Contraindication - On Xarelto Patient Problems: Active and Suspected Problems (Last Reviewed 10/14/17 @ 13:28 by Armida Blackburn) Light headedness (Acute) Prickly tongue (Acute) - Physical Exam General: Alert, Oriented x3, Cooperative, No apparent distress, Well developed, Well nourished HEENT: Atraumatic, PERRLA, EOMI, Normocephalic Oral: Moist Mucosa Neck: Supple, No JVD, Negative Carotid Bruits, No Nuchal Rigidity, Trachea Midline, Thyroid Normal Size and Texture Lungs: Clear to auscultation, Normal air movement, No rhonchi, No wheeze, No rales Cardiovascular: Regular rate, Regular Rhythm, Normal S1, Normal S2, No murmurs, No Ectopic Activity Abdomen: Bowel Sounds Present, Soft, Non Tender, Non-Distended, No hernias noted Extremities: No clubbing, No cyanosis, No edema, Capillary Refill Less than 3 Seconds Skin: No rashes, No breakdown Musculoskeletal: No Tenderness to Palpation of Joints or Extremities Neurological: Cranial nerves II-XII grossly intact, Neuro grossly intact, Motor Exam 5/5 strength throughout, Muscle tone normal, Sensory exam intact to light touch and pain, Coordination normal Psych/Mental Status: Normal Affect, Appropriate, Alert and oriented to time, place, person, mood and affect Vital Signs Temp Pulse Resp BP Pulse Ox 97.9 F 52 L 18 172/103 H 98 02/14/18 14:50 02/14/18 14:50 02/14/18 14:50 02/14/18 14:50 02/14/18 14:50 Oxygen Flow Rate (L/min) 2 Oxygen Delivery Method Nasal Cannula Weight: 92.9 kg Body Mass Index (BMI) 35.2 Assessment/Plan All Active Problems (Last Reviewed 10/14/17 @ 13:28 by Armida Blackburn) Light headedness (Acute) Prickly tongue (Acute) Secondary pulmonary arterial hypertension (Resolved) #1 lightheadedness-etiology unclear, patient will be placed in observation status on PCU, she will be monitored on telemetry, MRI of the brain as well as MRA of the head neck will be performed, patient will be seen again by neurology if needed #2 prickly tongue-etiology for this tongue paresthesia is unknown #3 hypertension #4 past history of atrial fibrillation #5 chronic anticoagulation with Xarelto #6 hyperlipidemia Code Visit OBSV E&M: [id number] Initial observation care L3
[2018-02-14] MEDS: Acetaminophen 325 MG Tablet 650 MG PO (23:13)
[2018-02-15] VITALS (8 sets, daily range): BP systolic 93–177; BP diastolic 2–64; PULSE 46–60; RESP 16; TEMP 36.1–36.4; O2SAT 93–96
[2018-02-15] MEDS: Levothyroxine 100 MCG Tablet PO (05:22)
[2018-02-15] MEDS: 0.9% Normal Saline 1,000 ML 75 ML IV (06:32)
[2018-02-15] MEDS: 0.9% NaCl Peripheral Flush Adult/Peds IV (08:16)
[2018-02-15] MEDS: Amiodarone 200 MG Tablet PO (09:22)
[2018-02-15] MEDS: Rivaroxaban 15 MG Tablet PO (09:22)
[2018-02-15] MEDS: Pantoprazole Sodium 40 MG Tablet PO (09:23)
[2018-02-15] MEDS: Atorvastatin Calcium 20 MG Tablet PO (09:23)
[2018-02-15] MEDS: Losartan Potassium 100 MG Tablet PO (09:23)
[2018-02-15] MEDS: hydroCHLOROthiazide 25 MG Tablet PO (09:23)
[2018-02-15] MEDS: Metoprolol(XL)Succ 100 MG Tablet PO (10:09)
--- NOTE | 2018-02-15 11:29 | PCM.DC ---
- Discharge Diagnoses Current Active Problems: Current Active and Chronic Problems (Last Reviewed 10/14/17 @ 13:28 by Armida Blackburn) Light headedness (Acute) Prickly tongue (Acute) You will use the following diet at home:: Cardiac Discharge Activity: Return to Normal Activity Call your doctor if you observe: Numbness or Tingling, Shortness of breath, Dizziness, Fainting spells, Chest pain Allergies/Adverse Reactions: Allergies No Known Allergies Allergy (Verified 02/14/18 10:42) Medications to take at Discharge Valsartan/Hydrochlorothiazide [Diovan Hct 320-25 mg Tablet] 1 tab PO DAILY 10/01/16 Amiodarone HCl [Cordarone] 200 mg PO DAILY 09/22/17 Levothyroxine Sodium [Levoxyl] 100 mcg PO DAILY 09/22/17 Metoprolol Succinate 100 mg PO DAILY 09/22/17 simvastatin 40 mg tablet 40 mg PO DAILY 10/13/17 lansoprazole 30 mg capsule,delayed release 30 mg PO DAILY cap 10/14/17 Acetaminophen [Tylenol] 650 mg PO QHS 02/14/18 Rivaroxaban [Xarelto] 15 mg PO DAILY 02/14/18 Thera-Tears 2 drop EACH EYE BID 02/14/18 Orders to be completed after discharge: Basic Metabolic Profile (BMP) Time Frame: 3 Days, Location: Laboratory Primary Care Physician: Urban Ceja MD [Primary Care Provider] - Please follow up with your Primary Care Physician in: 1 Week Test Results: Test results from this visit will be discussed in further detail at your follow-up appointment, if applicable. Please Follow Up With: Ezio Mancini MD When: As scheduled Proposed Discharge Date: 02/15/18
--- NOTE | 2018-02-15 11:33 | DCINST_ITS ---
- Discharge Diagnoses Current Active Problems: Current Active and Chronic Problems (Last Reviewed 10/14/17 @ 13:28 by Armida Blackburn) Light headedness (Acute) Prickly tongue (Acute) You will use the following diet at home:: Cardiac Discharge Activity: Return to Normal Activity Call your doctor if you observe: Numbness or Tingling, Shortness of breath, Dizziness, Fainting spells, Chest pain Allergies/Adverse Reactions: Allergies No Known Allergies Allergy (Verified 02/14/18 10:42) Medications to take at Discharge Valsartan/Hydrochlorothiazide [Diovan Hct 320-25 mg Tablet] 1 tab PO DAILY 10/01 Amiodarone HCl [Cordarone] 200 mg PO DAILY 09/22/17 Levothyroxine Sodium [Levoxyl] 100 mcg PO DAILY 09/22/17 Metoprolol Succinate 100 mg PO DAILY 09/22/17 simvastatin 40 mg tablet 40 mg PO DAILY 10/13/17 lansoprazole 30 mg capsule,delayed release 30 mg PO DAILY cap 10/14/17 Acetaminophen [Tylenol] 650 mg PO QHS 02/14/18 Rivaroxaban [Xarelto] 15 mg PO DAILY 02/14/18 Thera-Tears 2 drop EACH EYE BID 02/14/18 Orders to be completed after discharge: Basic Metabolic Profile (BMP) Time Frame: 3 Days, Location: Laboratory Primary Care Physician: Urban Ceja MD [Primary Care Provider] - Please follow up with your Primary Care Physician in: 1 Week Test Results: Test results from this visit will be discussed in further detail at your follow- up appointment, if applicable. Please Follow Up With: Ezio Mancini MD When: As scheduled Proposed Discharge Date: 02/15/18
--- NOTE | 2018-02-15 12:00 | PCM.DC.SUM ---
<Bev Singh - Last Filed: 02/15/18 12:09> Discharge Date and Diagnosis Date of Admission: 02/14/18 Date of Discharge: 02/15/18 - Primary Discharge Diagnosis Active and Suspected Problems (Last Reviewed 10/14/17 @ 13:28 by Armida Blackburn) 1. Lightheadedness suspected secondary to orthostatic hypotension 2. Tongue paresthesia-CVA ruled out - Secondary Discharge Diagnosis Chronic Problems (Last Reviewed 10/14/17 @ 13:28 by Armida Blackburn) Obesity (BMI 30.0-34.9) (Chronic) History of left heart catheterization (Chronic 09/30/14) Atrial flutter, paroxysmal (Chronic) Hypothyroidism (Chronic) GERD (gastroesophageal reflux disease) (Chronic) Hyperlipidemia (Chronic) Hypertension (Chronic) Paroxysmal atrial fibrillation (Chronic) Hospital Course and Treatment Imaging Results: Diagnostic Data Brain CT 02/14/18 11:05 IMPRESSION: Chronic involutional changes of the brain. No hemorrhage. Electronically Signed: Frederick Gunderson MD at 12:50 EDT , Service support , Chest X-Ray 02/14/18 11:50 IMPRESSION: Normal x-ray examination of the chest. Electronically Signed: Frederick Gunderson MD at 12:02 EDT , Service support , Brain MRI 02/14/18 14:52 IMPRESSION: Moderate atrophy and periventricular white matter ischemic changes. No evidence for acute infarct Electronically Signed: David Larios MD at 16:52 EDT , Service support , Head MRA 02/14/18 14:52 IMPRESSION: Mild atherosclerotic disease. No evidence for hemodynamically significant segmental stenosis or occlusive thrombus. Electronically Signed: David Larios MD at 16:55 EDT , Service support , Neck MRA 02/14/18 14:52 IMPRESSION: Normal bilateral cervical carotid and vertebral arteries. Electronically Signed: David Larios MD at 16:54 EDT , Service support , Operations: None Procedures: None Summary of Care Provided: The patient is a 82 year old F admitted 02/14/2018 due to lightheadedness and prickly tongue. She has a past medical history of hypertension, hyperlipidemia, paroxysmal atrial fibrillation, hypothyroidism, GERD, obesity. Lightheadedness suspected secondary to orthostatic hypotension. Patient received IV fluids. Repeat orthostatic vitals negative. CVA ruled out. MRI of brain without evidence of acute infarct. MRA of neck with normal bilateral cervical carotid and vertebral arteries. Patient states tongue paresthesia has improved. Lightheadedness improved. Denies focal weakness or other neurological deficits. Patient is stable for discharge home with further follow-up with primary care physician in 1 week. Patient states she has an upcoming appointment with Dr. Mancini, cardiology. Blood pressure elevated on admission which improved. Recommend further monitoring of blood pressure as outpatient. It may be appropriate to complete further lab work as outpatient such as B12, vitamin D, etc. This may be completed by primary care physician. General: Alert, Oriented x3, Cooperative, No apparent distress HEENT: Atraumatic, PERRLA, EOMI, Normocephalic Oral: Moist Mucosa Neck: Supple, No JVD, Negative Carotid Bruits Lungs: Clear to auscultation, Normal air movement, No rhonchi, No wheeze, No rales Cardiovascular: Regular rate, Regular Rhythm, Normal S1, Normal S2, No murmurs Abdomen: Bowel Sounds Present, Soft, Non Tender, Non-Distended, No hernias noted Extremities: No clubbing, No cyanosis, No edema, Capillary Refill Less than 3 Seconds Skin: No rashes, No breakdown Musculoskeletal: No Tenderness to Palpation of Joints or Extremities Neurological: Cranial nerves II-XII grossly intact, Neuro grossly intact, Motor Exam 5/5 strength throughout Psych/Mental Status: Normal Affect, Appropriate, Alert and oriented to time Patient seen exam prior to discharge. Physical assessment as noted above. Patient stable for discharge home with follow-up recommendations as noted above. This patient was seen by REY Ram under the supervision of Dr. Koram. Discharge Diet: Low fat/ Low Cholesterol Discharge Activity: Return to Normal Activity Call your doctor if you observe: Numbness or Tingling, Shortness of breath, Dizziness, Fainting spells, Chest pain Home Medications: Medications to take at Discharge Valsartan/Hydrochlorothiazide [Diovan Hct 320-25 mg Tablet] 1 tab PO DAILY 10/01/16 Amiodarone HCl [Cordarone] 200 mg PO DAILY 09/22/17 Levothyroxine Sodium [Levoxyl] 100 mcg PO DAILY 09/22/17 Metoprolol Succinate 100 mg PO DAILY 09/22/17 simvastatin 40 mg tablet 40 mg PO DAILY 10/13/17 lansoprazole 30 mg capsule,delayed release 30 mg PO DAILY cap 10/14/17 Acetaminophen [Tylenol] 650 mg PO QHS 02/14/18 Rivaroxaban [Xarelto] 15 mg PO DAILY 02/14/18 Thera-Tears 2 drop EACH EYE BID 02/14/18 Primary Care Physician: Urban Ceja MD [Primary Care Provider] - Please follow up with your Primary Care Physician in: 1 Week Please Follow Up With: Ezio Mancini MD When: As scheduled Disposition: Home Minutes spent on discharge:: 35 Patient Condition:: Stable Medical Necessity - Tobacco Use Smoking Status: Former smoker Meaningful Use Info Meaningful Use Diagnoses (Choose all that apply): None applicable <Sudha Watson - Last Filed: 02/15/18 17:26> Discharge Date and Diagnosis - Secondary Discharge Diagnosis Chronic Problems (Last Reviewed 10/14/17 @ 13:28 by Armida Blackburn) Obesity (BMI 30.0-34.9) (Chronic) History of left heart catheterization (Chronic 09/30/14) Atrial flutter, paroxysmal (Chronic) Hypothyroidism (Chronic) GERD (gastroesophageal reflux disease) (Chronic) Hyperlipidemia (Chronic) Hypertension (Chronic) Paroxysmal atrial fibrillation (Chronic) Hospital Course and Treatment Summary of Care Provided: Patient seen by Bev Singh nurse practitioner under my supervision. I agree with above note and assessment and plan. The patient is a 82 year old F admitted with a complaint of lightheadedness and prickly tongue. Symptoms have resolved at time of review. CVA was ruled out with MRI of brain and MRA of neck. Patient seen and examined this morning. She had no complaints and felt very well. Son was by her bedside. Review of systems otherwise negative. Examination as documented above and was normal. Plan as documented above. 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 [] Code Visit Inpatient E&M: 04469 Disch Hosp
--- NOTE | 2018-02-15 12:09 | DS.PCM_ITS ---
<Bev Singh - Last Filed: 02/15/18 12:09> Discharge Date and Diagnosis Date of Admission: 02/14/18 Date of Discharge: 02/15/18 - Primary Discharge Diagnosis Active and Suspected Problems (Last Reviewed 10/14/17 @ 13:28 by Armida Blackburn) 1. Lightheadedness suspected secondary to orthostatic hypotension 2. Tongue paresthesia-CVA ruled out - Secondary Discharge Diagnosis Chronic Problems (Last Reviewed 10/14/17 @ 13:28 by Armida Blackburn) Obesity (BMI 30.0-34.9) (Chronic) History of left heart catheterization (Chronic 09/30/14) Atrial flutter, paroxysmal (Chronic) Hypothyroidism (Chronic) GERD (gastroesophageal reflux disease) (Chronic) Hyperlipidemia (Chronic) Hypertension (Chronic) Paroxysmal atrial fibrillation (Chronic) Hospital Course and Treatment Imaging Results: Diagnostic Data Brain CT 02/14/18 11:05 IMPRESSION: Chronic involutional changes of the brain. No hemorrhage. Electronically Signed: Frederick Gunderson MD at 12:50 EDT , Service support , Chest X-Ray 02/14/18 11:50 IMPRESSION: Normal x-ray examination of the chest. Electronically Signed: Frederick Gunderson MD at 12:02 EDT , Service support , Brain MRI 02/14/18 14:52 IMPRESSION: Moderate atrophy and periventricular white matter ischemic changes. No evidence for acute infarct Electronically Signed: David Larios MD at 16:52 EDT , Service support , Head MRA 02/14/18 14:52 IMPRESSION: Mild atherosclerotic disease. No evidence for hemodynamically significant segmental stenosis or occlusive thrombus. Electronically Signed: David Larios MD at 16:55 EDT , Service support , Neck MRA 02/14/18 14:52 IMPRESSION: Normal bilateral cervical carotid and vertebral arteries. Electronically Signed: David Larios MD at 16:54 EDT , Service support , Operations: None Procedures: None Summary of Care Provided: The patient is a 82 year old F admitted 02/14/2018 due to lightheadedness and prickly tongue. She has a past medical history of hypertension, hyperlipidemia, paroxysmal atrial fibrillation, hypothyroidism, GERD, obesity. Lightheadedness suspected secondary to orthostatic hypotension. Patient received IV fluids. Repeat orthostatic vitals negative. CVA ruled out. MRI of brain without evidence of acute infarct. MRA of neck with normal bilateral cervical carotid and vertebral arteries. Patient states tongue paresthesia has improved. Lightheadedness improved. Denies focal weakness or other neurological deficits. Patient is stable for discharge home with further follow -up with primary care physician in 1 week. Patient states she has an upcoming appointment with Dr. Mancini, cardiology. Blood pressure elevated on admission which improved. Recommend further monitoring of blood pressure as outpatient. It may be appropriate to complete further lab work as outpatient such as B12, vitamin D, etc. This may be completed by primary care physician. General: Alert, Oriented x3, Cooperative, No apparent distress HEENT: Atraumatic, PERRLA, EOMI, Normocephalic Oral: Moist Mucosa Neck: Supple, No JVD, Negative Carotid Bruits Lungs: Clear to auscultation, Normal air movement, No rhonchi, No wheeze, No rales Cardiovascular: Regular rate, Regular Rhythm, Normal S1, Normal S2, No murmurs Abdomen: Bowel Sounds Present, Soft, Non Tender, Non-Distended, No hernias noted Extremities: No clubbing, No cyanosis, No edema, Capillary Refill Less than 3 Seconds Skin: No rashes, No breakdown Musculoskeletal: No Tenderness to Palpation of Joints or Extremities Neurological: Cranial nerves II-XII grossly intact, Neuro grossly intact, Motor Exam 5/5 strength throughout Psych/Mental Status: Normal Affect, Appropriate, Alert and oriented to time Patient seen exam prior to discharge. Physical assessment as noted above. Patient stable for discharge home with follow-up recommendations as noted above. This patient was seen by REY Ram under the supervision of Dr. Koram. Discharge Diet: Low fat/ Low Cholesterol Discharge Activity: Return to Normal Activity Call your doctor if you observe: Numbness or Tingling, Shortness of breath, Dizziness, Fainting spells, Chest pain Home Medications: Medications to take at Discharge Valsartan/Hydrochlorothiazide [Diovan Hct 320-25 mg Tablet] 1 tab PO DAILY 10/01 Amiodarone HCl [Cordarone] 200 mg PO DAILY 09/22/17 Levothyroxine Sodium [Levoxyl] 100 mcg PO DAILY 09/22/17 Metoprolol Succinate 100 mg PO DAILY 09/22/17 simvastatin 40 mg tablet 40 mg PO DAILY 10/13/17 lansoprazole 30 mg capsule,delayed release 30 mg PO DAILY cap 10/14/17 Acetaminophen [Tylenol] 650 mg PO QHS 02/14/18 Rivaroxaban [Xarelto] 15 mg PO DAILY 02/14/18 Thera-Tears 2 drop EACH EYE BID 02/14/18 Primary Care Physician: Urban Ceja MD [Primary Care Provider] - Please follow up with your Primary Care Physician in: 1 Week Please Follow Up With: Ezio Mancini MD When: As scheduled Disposition: Home Minutes spent on discharge:: 35 Patient Condition:: Stable Medical Necessity - Tobacco Use Smoking Status: Former smoker Meaningful Use Info Meaningful Use Diagnoses (Choose all that apply): None applicable <Sudha Watson - Last Filed: 02/15/18 17:26> Discharge Date and Diagnosis - Secondary Discharge Diagnosis Chronic Problems (Last Reviewed 10/14/17 @ 13:28 by Armida Blackburn) Obesity (BMI 30.0-34.9) (Chronic) History of left heart catheterization (Chronic 09/30/14) Atrial flutter, paroxysmal (Chronic) Hypothyroidism (Chronic) GERD (gastroesophageal reflux disease) (Chronic) Hyperlipidemia (Chronic) Hypertension (Chronic) Paroxysmal atrial fibrillation (Chronic) Hospital Course and Treatment Summary of Care Provided: Patient seen by Bev Singh nurse practitioner under my supervision. I agree with above note and assessment and plan. The patient is a 82 year old F admitted with a complaint of lightheadedness and prickly tongue. Symptoms have resolved at time of review. CVA was ruled out with MRI of brain and MRA of neck. Patient seen and examined this morning. She had no complaints and felt very well. Son was by her bedside. Review of systems otherwise negative. Examination as documented above and was normal. Plan as documented above. Patient discharged home to follow-up with her PCP and orthopedic designer. [] Code Visit Inpatient E&M: 71192 Disch Hosp
== END 2018-02-15 11:31 | disposition home or self-care (01) ==
LOC: ED 13:16 → PCU 14:45
PROVIDERS: Admitting Provider Internal Medicine; Emergency Provider Emergency Medicine; PCP Family Medicine; Visit Provider Student in an Organized Health Care Education/Training Program
DX: R42 Dizziness and giddiness (principal); R20.2 Paresthesia of skin; E66.9 Obesity, unspecified; Z68.35 Body mass index [BMI] 35.0-35.9, adult; Z71.3 Dietary counseling and surveillance; K21.9 Gastro-esophageal reflux disease without esophagitis; E03.9 Hypothyroidism, unspecified; I48.0 Paroxysmal atrial fibrillation; E78.5 Hyperlipidemia, unspecified; I10 Essential (primary) hypertension; Z79.899 Other long term (current) drug therapy; Z79.01 Long term (current) use of anticoagulants; Z87.891 Personal history of nicotine dependence
CPT/HCPCS: 70450; 70544; 70547; 70551; 71045; 80048; 82962; 84484; 85025; 85610; 85730; 93005; 96360; 96361; 97161; 97166; 99218; 99285; J7030; A4216; G0378

== ENCOUNTER → 2018-02-18 09:52 | Outpatient (CLI) | payer MEDICARE, OTHER, SELFPAY ==
[2018-02-18 10:57] LABS: Anion Gap 8 (5-15); BUN 31 mg/dL (7-18); Calcium,Total 9.3 mg/dL (8.5-10.1); Chloride 102 mmol/L (98-107); Creatinine, Serum 1.63 mg/dL (0.55-1.02); EST Glomerular Filtration Rate 32 mL/min (>60); Est Glom Filt Rate - Afr Amer 39 mL/min (>60); Glucose 117 mg/dL (74-106); Potassium 3.8 mmol/L (3.5-5.1); Sodium Level 138 mmol/L (136-145)
== END ==
PROVIDERS: PCP Family Medicine; Visit Provider Nurse Practitioner Family
DX: N18.9 Chronic kidney disease, unspecified (principal)
CPT/HCPCS: 36415; 80048

== ENCOUNTER → 2018-08-27 10:21 | Outpatient (CLI) | payer MEDICARE, OTHER, SELFPAY ==
[2018-08-07 14:27] VITALS: BMI 36.0
--- NOTE | 2018-08-27 10:25 | STE_ITS ---
Reason For Study: PREOP EVAL Stress Results Protocol: Dobutamine Stress Maximum Predicted HR: 137 bpm Target HR: 116 bpm % Maximum Predicted HR: 85 % Heart Stage Duration Rate BP Dose Comment (mm:ss) (bpm) BASELINE 59 170/82 STAGE 1 3:00 61 176/7410.00 STAGE 2 3:00 80 140/6220.00 STAGE 3 3:00 92 110/4030.00 1 MG ATROPINE, NORMAL SALINE 500CC STARTED,FEELING DIZZY, LAYED STAGE 4 7:42 116 .00FLAT IN BED AND GAVE BOLUS OF SALINE, DR. MANCINI AWARE RECOVERY 78 130/64 Stress Duration: 16:42 mm:ss Maximum Stress HR: 116 bpm Baseline Echocardiogram Findings The estimated ejection fraction is 65 %. Stress Echo Wall motion Data Resting WM Intermediate WM Stress WM Resting Wall Motion Wall Motion Stress No regional wall motion No regional wall motion abnormalities noted. abnormalities noted. EKG Data Normal intervals are noted. The patient was titrated from 10 mcg to a maximum of 40 mcg of dobutamine during the stress. The maximum heart rate attained was 123 beats per minute. This was 89% of maximum predicted heart rate. At peak infusion, upsloping ST changes only were noted, which did not meet the criteria for ischemia. No clinical angina was noted. No arrhythmias noted. Interpretation Summary The estimated ejection fraction is 65 %. Normal, adequate, dobutamine echocardiogram. Negative for ischemia by EKG and echocardiographic criteria. No anginal symptoms noted. No arrhythmias noted. Patient had hypotension at peak infusion which may be related to effacement of LV chamber which quickly responded to IV fluids. Test terminated due to the attainment of target heart rate. Final LVEF is 75%. No complications. Ordering Physician: Ezio Mancini Referring Physician: Ezio Mancini Performed By: Teressa Mathews, LEANDRO, RVT
== END ==
PROVIDERS: Family Provider Family Medicine; PCP Family Medicine; Referring Provider Internal Medicine Cardiovascular Disease; Visit Provider Internal Medicine Cardiovascular Disease
DX: Z01.810 Encounter for preprocedural cardiovascular examination (principal); I48.92 Unspecified atrial flutter; I48.0 Paroxysmal atrial fibrillation; E78.5 Hyperlipidemia, unspecified; I10 Essential (primary) hypertension; E03.9 Hypothyroidism, unspecified; K21.9 Gastro-esophageal reflux disease without esophagitis; Z79.899 Other long term (current) drug therapy
CPT/HCPCS: 93017; 93350; J7040; A4216

== ENCOUNTER 2018-09-04 10:28 | Day surgery (SDC) | payer MEDICARE, OTHER, SELFPAY ==
[2018-08-07 14:27] VITALS: BMI 36.0
--- NOTE | 2018-09-04 | IMM_PTH ---
PATIENT: XUAN RODRIGUEZ [place] [facility] [place][id number] AGE/SX: 83/F ROOM: RE09/04/[address]: Dr. Nilsa Rausch DO : 1935 BED: DIS: 09/04/2018 SPEC #: [id number] RECD: 09/08/18 13:04 STATUS: JADA JOSEFINA #: [id number] JACEY: 09/04/18 00:[address]: Nilsa Rausch DEPT: IMMUNOHISTOCHEMISTRY RECD BY: Kimberly Galo ENTERED: 09/08/18 13:06 SP TYPE: IMMUNO OTHR DR: Dr. Urban Ceja MD Tissues: Skin of vulva Procedures: p16 (initial) KI-67 (add) PHYSICIAN & [place] [id number] SPECIMEN INFORMATION: Tissue Source: Left vulvar lesion Clinical Info: JOAN III Specimen Number: [id number] #2 CPT code: 73241, 09715 METHODOLOGY: Deparaffinized sections of prefer/formalin-fixed tissue or PAP/DQ stained slides are incubated with monoclonal/polyclonal antibodies/oligonucleotide probes. Localization is made via biotin free immunoperoxidase method. Appropriate controls are performed and reacted as expected. Results on target cell population are indicated in the following table: RESULTS: ANTIBODY / CLONE RESULT Block 2 P16 (E6H4) positive, block staining Ki-67 (30-9) positive, high These tests were developed and their performance characteristics determined by [facility]. They may not have been cleared or approved by the U.S. Food and Drug Administration. The FDA has determined that such clearance or approval is not necessary. 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 LANCE:kory 09/09/18
--- NOTE | 2018-09-04 | VUL_PTH ---
PATIENT: XUAN RODRIGUEZ LOC: [facility] – [place] U#:[id number] AGE/SX: 83/F ROOM: RE09/04/[address]: Dr. Nilsa Rausch DO : 1935 BED: DIS: 09/04/2018 SPEC #: [id number] RECD: 09/05/18 09:33 STATUS: JADA JOSEFINA #: [id number] JACEY: 09/04/18 00:[address]: Nilsa Rausch DEPT: SURGICAL PATHOLOGY RECD BY: Cesar Hubbard ENTERED: 09/05/18 09:33 SP TYPE: VULVA BX OTHR DR: Dr. 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 Focal hyperkeratosis. Negative for invasive carcinoma. See comment. SJ:kory 09/08/18 COMMENT The lesion is focally present at the 12 o'clock resection margin. Other margins are free of the lesion. Immunohistochemistry ([id number]) for surrogate HPV marker (p16) supports the above diagnosis. Case has been reviewed in consultation with Dr. Adams who concurs with the above diagnosis. IDC:AM MICROSCOPIC DESCRIPTION Slides are reviewed. GROSS DESCRIPTION Received in fixative is one container labeled with the patient's name and designated vulvar lesion, suture at 12 o'clock. The specimen consists of a piece of torres-white skin measuring 2.5 x 1 cm and up to 0.5 cm in thickness. The skin surface shows an ulcerated area. The margins are inked as follows: 12 o'clock margin - yellow, 6 o'clock margin - black, 3 o'clock margin - blue and 9 o'clock margin - green. The entire specimen is submitted in three cassettes. Cassette 3 contains the 6 and 12 o'clock margins. / LANCE:kory 09/05/18 TC:0 CPT: 69945
[2018-09-04 10:52] VITALS: BP 187/68; PULSE 59; RESP 14; TEMP 35.8; O2SAT 98; BMI 34.7
--- NOTE | 2018-09-04 12:50 | DCINST_ITS ---
- Discharge Diagnoses Current Active Problems: VIN3 You will use the following diet at home:: No restrictions Discharge Activity: Return to Normal Activity, May not drive while taking narcotic pain medications., May Shower May resume sexual activity in: 6 weeks Ice area for (Minutes): 20 Weight Bearing Status: Weight bearing as tolerated Lifting Restrictions: None Call your doctor if your incision/area has: Continuous Slow Oozing, Sudden Increased Bleeding, Increased Pain/ Swelling, Increased Redness, Foul Smelling Discharge, Swelling at the incision site Call your doctor if you observe: Fever of 101 or Higher, Inability to urinate, Inability to have a bowel movement, Using more than one pad per hour, Shortness of breath, Chest pain, Increased palpitations (irregular heartbeat), Calf discomfort, Uncontrolled pain Cleanse incision/area with: Soap & Water, - - Do not keep a dressing over the area. Just keep the area clean and dry Allergies/Adverse Reactions: Allergies No Known Allergies Allergy (Verified 09/02/18 08:17) Medications to take at Discharge Levothyroxine Sodium [Levoxyl] 100 mcg PO DAILY 09/22/17 simvastatin 40 mg tablet 40 mg PO DAILY 10/13/17 Acetaminophen [Tylenol] 650 mg PO QHS 02/14/18 Rivaroxaban [Xarelto] 15 mg PO DAILY 02/14/18 Thera-Tears 2 drp EACH EYE BID 02/14/18 metoprolol succinate ER 100 mg tablet,extended release 24 hr 50 mg PO DAILY tab 02/20/18 amiodarone 200 mg tablet 200 mg PO DAILY #90 tab 04/22/18 allopurinol 100 mg tablet 100 mg PO DAILY 08/07/18 cholecalciferol (vitamin D3) 1,000 unit capsule 1,000 unit PO DAILY 08/07/18 ferrous sulfate 325 mg (65 mg iron) tablet 325 mg PO DAILY tab 08/07/18 hydrochlorothiazide 12.5 mg tablet 12.5 mg PO DAILY 08/07/18 Losartan/Hydrochlorothiazide [Losartan-Hctz 100-25 mg Tab] 1 each PO DAILY 09/02/18 Oxycodone [Oxyir] 5 mg PO Q6H PRN PRN 7 Days #20 tablet 09/04/18 The following prescriptions were given: Oxycodone [Oxyir] 5 mg PO Q6H PRN PRN 7 Days #20 tablet PRN Reason: Pain Primary Care Physician: Urban Ceja MD [Primary Care Provider] - Test Results: Test results from this visit will be discussed in further detail at your follow- up appointment, if applicable. Please Follow Up With: Nilsa Rausch, When: 1 week
[2018-09-04] MEDS: ACETIC ACID 1,000 ML IRRIG.SOLN IR (13:30)
[2018-09-04 14:04] VITALS: BP 136/50; BP 187/68; PULSE 56; RESP 18; TEMP 36.4; O2SAT 98
[2018-09-04 14:10] VITALS: BP 149/59; BP 187/68; PULSE 53; RESP 18; O2SAT 97
[2018-09-04 14:15] VITALS: BP 158/54; BP 187/68; PULSE 53; RESP 18; O2SAT 97
--- NOTE | 2018-09-04 14:18 | PCM.OPRPT ---
Problem List (1) JOAN III (vulvar intraepithelial neoplasia III) Status: Acute Report of Operation Date of Procedure: 09/04/18 Pre-Operative Diagnosis: VIN3 Post-Operative Diagnosis: VIN3 Surgery/Procedure Performed:: Vulvar colposcopy, excision of vulvar lesion Description of Surgical Findings:: During the examination, the lesion that was biopsied in the office was grossly visible. This lesion measured about 4 x 3 cm in size, and was over the top half of the left labia majora. During the vulvar colposcopy no additional lesions were noted. There is some scarring present from her prior vulvar procedure with a narrow vaginal introitus, and fusion over the clitoral georges Type of Anesthesia:: MAC Specimen's removed: Vulvar lesion Drains: None Estimated Blood Loss (mL): < 50 cc Description of Procedure: The patient was draped in dorsal lithotomy position using yellowfin stirrups after MAC anesthesia was found to be adequate. Acetic acid solution was placed over the entire vulvar area, and the colposcope was used to perform a complete examination. The lesion that was biopsied in the office was grossly visible. No additional lesions or acetowhite changes were noted with acetic acid. The patient was then prepped and draped in the usual sterile fashion. 1% lidocaine with epinephrine was injected around the vulvar lesion. A scalpel was then used to excise the vulvar lesion with a small margin. The skin was then undermined using the scalpel, and the specimen was removed. The specimen was marked at the 12 o'clock position with a suture. The site was then made hemostatic with the Bovie cautery. Interrupted stitches of 3-0 Vicryl suture were used to close the area. The instrument count was correct at the completion of the procedure. The patient was taken to the recovery room in stable condition. - Complications None - Admit VTE Documentation VTE Present on Admission: No VTE Mechan Device Prophylaxis: SCD's
[2018-09-04 14:20] VITALS: BP 167/50; BP 187/68; PULSE 52; RESP 18; TEMP 36.3; O2SAT 95
[2018-09-04 15:20] VITALS: BP 187/68
== END 2018-09-04 15:35 | disposition home or self-care (01) ==
LOC: SDC 10:28 → AC 10:30
PROVIDERS: Family Provider Family Medicine; PCP Family Medicine; Referring Provider Obstetrics & Gynecology; Visit Provider Obstetrics & Gynecology
PROC: (CPT 58120; principal; 2018-09-04 12:00)
DX: D07.1 Carcinoma in situ of vulva (principal); L90.5 Scar conditions and fibrosis of skin; I12.9 Hypertensive chronic kidney disease with stage 1 through stage 4 chronic kidney disease, or unspecified chronic kidney disease; N18.3 Chronic kidney disease, stage 3 (moderate); E78.5 Hyperlipidemia, unspecified; E03.9 Hypothyroidism, unspecified; D50.9 Iron deficiency anemia, unspecified; I48.0 Paroxysmal atrial fibrillation; M19.90 Unspecified osteoarthritis, unspecified site; E55.9 Vitamin D deficiency, unspecified; K21.9 Gastro-esophageal reflux disease without esophagitis; E66.9 Obesity, unspecified; Z68.34 Body mass index [BMI] 34.0-34.9, adult; Z78.0 Asymptomatic menopausal state; Z79.899 Other long term (current) drug therapy; Z85.828 Personal history of other malignant neoplasm of skin; Z87.891 Personal history of nicotine dependence; Z90.49 Acquired absence of other specified parts of digestive tract; Z96.651 Presence of right artificial knee joint
CPT/HCPCS: 00300; 11626; 56820; 86850; 86900; 88305; 88341; 88342; J7120; J2405

== ENCOUNTER → 2018-10-21 12:35 | Outpatient (CLI) | payer MEDICARE, OTHER, SELFPAY ==
--- NOTE | 2018-10-21 12:37 | CDU_ITS ---
Reason For Study: AMAUROSIS FUGAX Rt. Velocities/BP Lt. Velocities/BP Prox CCA 76.8/13.5 cm/sec. Prox CCA 112.0/14.7 cm/sec. Mid CCA 68.6/12.3 cm/sec. Mid CCA 97.9/18.2 cm/sec. Dist CCA 63.3/15.8 cm/sec. Dist CCA 96.7/15.2 cm/sec. Prox ICA 56.3/15.2 cm/sec. Prox ICA 79.1/17.9 cm/sec. Mid ICA 77.6/20.4 cm/sec. Mid ICA 105.0/24.4 cm/sec. Dist ICA 60.1/16.3 cm/sec. Dist ICA 92.2/21.5 cm/sec. Rt. ICA/CCA = 1.1. Lt. ICA/CCA = 1.1. Prox ECA 72.7/10.0 cm/sec. Prox ECA 142/7.9 cm/sec. Rt. Vert. 36.4/13.5 cm/sec. Lt. Vert. 62.1/10.6 cm/sec. Right Extracranial There is intimal thickening but no significant atherosclerotic plaque noted in the right common carotid artery. There is heterogeneous, smooth atherosclerotic plaque noted in the right internal carotid artery. There is no significant atherosclerotic plaque noted in the right external carotid artery. Antegrade flow is noted in the right vertebral artery. Left Extracranial There is intimal thickening but no significant atherosclerotic plaque noted in the left common carotid artery. There is intimal thickening but no significant atherosclerotic plaque noted in the left internal carotid artery. There is no significant atherosclerotic plaque noted in the left external carotid artery. Antegrade flow is noted in the left vertebral artery. Procedure Carotid Duplex [id number]. Exam performed in department. Interpretation Summary Mild (<50%) stenosis right extracranial internal carotid. No significant atherosclerotic plaque or stenosis noted in the left internal carotid artery. Flow within the vertebral arteries is antegrade bilaterally. Ordering Physician: Victor Manuel Higginbotham Referring Physician: Edward Ceja Performed By: Ida Martinez RVT
== END ==
PROVIDERS: Family Provider Family Medicine; PCP Family Medicine; Referring Provider Ophthalmology; Visit Provider Ophthalmology
DX: G45.3 Amaurosis fugax (principal); I65.21 Occlusion and stenosis of right carotid artery
CPT/HCPCS: 93880

== ENCOUNTER → 2018-12-05 07:27 | Outpatient (CLI) | payer MEDICARE, OTHER, SELFPAY ==
[2018-12-02 11:01] VITALS: BMI 35.1
[2018-12-05 09:19] LABS: AST(SGOT) 24 U/L (15-37); Alanine Aminotransfer ALT/SGPT 29 U/L (13-56); Albumin, Serum 3.8 g/dL (3.2-5.0); Alkaline Phosphatase 73 U/L (45-117); Bilirubin, Direct 0.12 mg/dL (0.00-0.30); Cholesterol 169 mg/dL (200); Globulin 3.2 g/dL (2.2-4.2); High Density Lipoprotein 93 mg/dL; T4 Total, Thyroxin 11.9 ug/dL (4.8-13.9); Thyroid Stim Hormone (TSH) 8.61 uIU/mL (0.358-3.74); Triglycerides 109 mg/dL; Very Low Density Lipoprotein 22 mg/dL (5-40)
== END ==
PROVIDERS: Family Provider Family Medicine; PCP Family Medicine; Referring Provider Internal Medicine Cardiovascular Disease; Visit Provider Internal Medicine Cardiovascular Disease
DX: E78.5 Hyperlipidemia, unspecified (principal); E03.9 Hypothyroidism, unspecified; Z79.899 Other long term (current) drug therapy
CPT/HCPCS: 36415; 80061; 80076; 84436; 84443

== ENCOUNTER 2018-12-23 23:04 | Emergency (ER) | payer MEDICARE, OTHER, SELFPAY ==
[2018-12-02 11:01] VITALS: BMI 35.1
[2018-12-23 23:06] VITALS: TEMP 36.6; BMI 30.2
[2018-12-23 23:16] VITALS: BP 217/90; PULSE 75; RESP 14; O2SAT 97
--- NOTE | 2018-12-24 01:10 | ED.VISSUMM ---
- ER Visit Summary Date of Service: 12/24/18 Chief Complaint: Bleeding from right lower extremity skin cancer excision site History of Present Illness: The patient is a 83 F history of hypertension, A. fib and skin cancer. Currently on Xarelto. Earlier today she had a Mohs procedure by boom cat operator in [place], [place]. She was doing well and started bleeding tonight. Complaints. Physical Examination: Well-appearing older female. No acute distress. Vital signs are stable and afebrile. HEENT exam unremarkable. Neck nontender. Lungs clear to auscultation. Heart regular rhythm no murmur. Abdomen soft nontender. Extremities moves all 4. Calves nontender without edema or cords. She has 1/4-50 cents sized excision area that surgery on her right lower leg. There is a small pulsatile arterial bleeding site. No signs of infection. Distally her right foot is neurovascular intact. Test Results: None Emergency Department Course and Treatment: Right lower leg wound was cleaned with Shur-Clens. Washed. Locally anesthetized with lidocaine with epinephrine. And I placed three 4-0 Vicryl sutures and was able to stop the bleeding. Patient tolerated it well. She will be observed for period time as well as a bleeding does not restart she will be dressed and discharged to home. She is doing well tomorrow she does not need to do anything that rebleeds she either needs to return here or see her boom cat operator tomorrow. Treatment Plan: Stop her Xarelto for the next few days. Disposition: Discharge Impression: Acute bleeding from skin cancer excision site Anticoagulated on Xarelto Bleeding stopped by his tension sutures placed by ER physician This note was generated with [employer] dictation software. It may contain incorrect words, spelling, and punctuation that were not noted in review of the chart prior to signing ED Disposition - Plan for ED Patient: Referrals: Urban Ceja MD [Primary Care Provider] -
--- NOTE | 2018-12-24 01:16 | ED.DCSUM_ITS ---
- ER Visit Summary Date of Service: 12/24/18 Chief Complaint: Bleeding from right lower extremity skin cancer excision site History of Present Illness: The patient is a 83 F history of hypertension, A. fib and skin cancer. Currently on Xarelto. Earlier today she had a Mohs procedure by director of marketing communications in [place], [place]. She was doing well and started bleeding tonight. Complaints. Physical Examination: Well-appearing older female. No acute distress. Vital signs are stable and afebrile. HEENT exam unremarkable. Neck nontender. Lungs clear to auscultation. Heart regular rhythm no murmur. Abdomen soft nontender. Extremities moves all 4. Calves nontender without edema or cords. She has 1/4-50 cents sized excision area that surgery on her right lower leg. There is a small pulsatile arterial bleeding site. No signs of infection. Distally her right foot is neurovascular intact. Test Results: None Emergency Department Course and Treatment: Right lower leg wound was cleaned with Shur-Clens. Washed. Locally anesthetized with lidocaine with epinephrine. And I placed three 4-0 Vicryl sutures and was able to stop the bleeding. Patient tolerated it well. She will be observed for period time as well as a bleeding does not restart she will be dressed and discharged to home. She is doing well tomorrow she does not need to do anything that rebleeds she either needs to return here or see her director of marketing communications tomorrow. Treatment Plan: Stop her Xarelto for the next few days. Disposition: Discharge Impression: Acute bleeding from skin cancer excision site Anticoagulated on Xarelto Bleeding stopped by his tension sutures placed by ER physician This note was generated with [employer] dictation software. It may contain incorrect words, spelling, and punctuation that were not noted in review of the chart prior to signing ED Disposition - Plan for ED Patient: Referrals: Urban Ceja MD [Primary Care Provider] -
--- NOTE | 2018-12-24 01:17 | DCINST.ED_ITS ---
ED Disposition - Plan for ED Patient: Disposition: Home or Assisted Living Additional Instructions: If rebleeds hold direct pressure for 20 minutes. If unable to stop return to the ER. Ice and elevate. Follow-up with your passenger booking clerk. If needed. If the bleeding stopped. Doing well tomorrow you do not need to see your passenger booking clerk. Hold your Xarelto for the next 2 days only. Restart on Saturday. Keep wound clean and dry. Apply antibiotic ointment daily. Watch for any signs of infection. The stitches that I placed are dissolvable.
[2018-12-24 01:41] VITALS: RESP 18
== END 2018-12-24 01:42 | disposition home or self-care (01) ==
PROVIDERS: Emergency Provider Emergency Medicine; Family Provider Family Medicine; PCP Family Medicine
DX: L76.21 Postprocedural hemorrhage of skin and subcutaneous tissue following a dermatologic procedure (principal); Z98.890 Other specified postprocedural states; C44.90 Unspecified malignant neoplasm of skin, unspecified; I48.91 Unspecified atrial fibrillation; I10 Essential (primary) hypertension; Z79.01 Long term (current) use of anticoagulants; Z79.899 Other long term (current) drug therapy
CPT/HCPCS: 12001; 99283

== ENCOUNTER → 2019-03-27 14:15 | Outpatient (CLI) | payer MEDICARE, OTHER, SELFPAY ==
--- NOTE | 2019-03-27 14:42 | ECHOCS_ITS ---
Reason For Study: ARTERITIS Procedure This was a 2D Doppler, Color Flow transthoracic echocardiogram. The study was technically difficult. Contrast injection was performed. Exam performed in department. Left Ventricle Normal LV size. Left ventricular systolic function is normal. The estimated ejection fraction is 65 %. Diastolic function is indeterminate. No regional wall motion abnormalities noted. Right Ventricle Normal RV size. Normal systolic function. Atria The left atrium is mildly enlarged. Normal right atrium. No doppler evidence for ASD. Bubble contrast study negative for right to left interatrial shunt. Mitral Valve There is no mitral annular calcification. Normal mitral valve. Mild-Moderate (1-2+) eccentric mitral valve insufficiency. Tricuspid Valve Normal tricuspid valve. Mild tricuspid valve insufficiency. Right ventricular systolic pressure estimated to be 33 mmHg. Aortic Valve Trisinus/trileaflet aortic valve. Normal aortic valve. Pulmonic Valve The pulmonic valve is not well visualized. Great Vessels Normal sized aortic root. Pericardium/Pleural No pericardial effusion. Medication 22 gauge I.V. with prn adaptor inserted into left arm. Diluted definity 3ml given slow IV push to enhance endocardial definition. Performed a rapid injection of agitated mix of 9 cc saline and 1cc air to assess for atrial septal defect. MMode/2D Measurements & Calculations LVIDd: 4.2 cm IVSd: 1.0 cm Ao root diam: 3.1 cm LVIDs: 2.8 cm LVPWd: 1.1 cm RVDd: 3.3 cm FS: 33.0 % LAV(MOD-bp): 57.6 ml LA A4 area: 20.7 cm2 LA dimension(2D): 3.8 cm LAV(MOD-bp) Indexed: 29.2 ml/m2 LAV(MOD-sp2): 48.9 ml LAV(MOD-sp4): 57.7 ml RA A4 area: 11.5 cm2 Time Measurements MV dec time: 0.40 sec Doppler Measurements & Calculations MV E max noé: 56.6 cm/sec Lat Peak E' Noé: 3.8 cm/sec Med Peak E' Noé: 4.9 cm/sec MV A max noé: 104.4 cm/sec E/E' lat: 14.9 E/E' med: 11.5 MV E/A: 0.54 MV V2 max: 107.5 cm/sec Ao V2 max: 124.5 cm/sec LV V1 max: 116.4 cm/sec MV max P.6 mmHg Ao max P.2 mmHg LV V1 max P.4 mmHg MV V2 mean: 51.0 cm/sec MV mean P.3 mmHg MV V2 VTI: 37.3 cm PA V2 max: 103.6 cm/sec PI end-d noé: 92.2 cm/sec TR max noé: 271.2 cm/sec TR max P.7 mmHg MV P1/2t-pr_phl: 149.4 msec Interpretation Summary The study was technically difficult. Contrast injection was performed. Left ventricular systolic function is normal. The estimated ejection fraction is 65 %. The left atrium is mildly enlarged. Mild-Moderate (1-2+) eccentric mitral valve insufficiency. Mild tricuspid valve insufficiency. Right ventricular systolic pressure estimated to be 33 mmHg. Diastolic function is indeterminate. Ordering Physician: Victor Manuel Higginbotham Referring Physician: WILLAM HARDY Performed By: Delilah Molina, LEANDRO, RVT
[2019-03-27 14:43] LABS: Erythrocyte Sedimentation Rate 28 mm/hr (0-30)
[2019-03-27 14:45] LABS: Hematocrit 41.7 % (37-47); Hemoglobin 13.4 g/dL (12.0-15.0); Mean Corp Hgb Conc 32.1 g/dL (32-36); Mean Corpuscular Hgb 29.6 pg (27.0-32.0); Mean Corpuscular Volume 92.1 fL (81-99); Mean Platelet Vol. 9.8 fl (6.2-12.0); Platelet Count 180 K/mm3 (150-450); RBC Distribution Width CV 13.9 % (11.6-14.6); RBC Distribution Width SD 47.2 fl (35.1-43.9); Red Blood Count 4.53 M/mm3 (4.2-5.4)
[2019-03-27 15:06] LABS: CRP < 2.90 mg/L (0.0-3.0)
== END ==
PROVIDERS: Family Provider Family Medicine; PCP Family Medicine; Referring Provider Ophthalmology; Visit Provider Ophthalmology
DX: M31.6 Other giant cell arteritis (principal); G45.3 Amaurosis fugax
CPT/HCPCS: 36415; 85027; 85652; 86140; 93306; Q9957; A4216; C8929

== ENCOUNTER → 2019-04-16 10:49 | Outpatient (CLI) | payer MEDICARE, OTHER, SELFPAY ==
[2019-04-16 10:09] VITALS: BMI 33.6
== END ==
PROVIDERS: Family Provider Family Medicine; PCP Family Medicine; Referring Provider Internal Medicine Cardiovascular Disease; Visit Provider Internal Medicine Cardiovascular Disease
DX: E03.9 Hypothyroidism, unspecified (principal); Z79.899 Other long term (current) drug therapy
CPT/HCPCS: 36415; 84436; 84443

== ENCOUNTER → 2019-04-17 10:41 | Outpatient (CLI) | payer MEDICARE, OTHER, SELFPAY ==
[2019-04-16 10:09] VITALS: BMI 33.6
[2019-04-17 11:22] LABS: T4 Total, Thyroxin 18.7 ug/dL (4.8-13.9); Thyroid Stim Hormone (TSH) 1.29 uIU/mL (0.358-3.74)
== END ==
PROVIDERS: Family Provider Family Medicine; PCP Family Medicine; Referring Provider Internal Medicine Cardiovascular Disease; Visit Provider Internal Medicine Cardiovascular Disease
DX: E03.9 Hypothyroidism, unspecified (principal); Z79.899 Other long term (current) drug therapy
CPT/HCPCS: 84436; 84443

== ENCOUNTER → 2019-05-19 12:53 | Outpatient (CLI) | payer MEDICARE, OTHER, SELFPAY ==
[2019-04-16 10:09] VITALS: BMI 33.6
--- NOTE | 2019-05-19 13:30 | RAD_ITS ---
STUDY: X-RAY CHEST REASON FOR EXAM: Female, 83 years old. Yearly checkup TECHNIQUE: PA and lateral views of the chest. COMPARISON: 02/14/2018 FINDINGS: The lungs are clear and expanded. There is no demonstrated pleural abnormality. Normal size heart. Normal mediastinum and vinod. Normal visualized pulmonary arteries. Normal visualized aortic arch and descending thoracic aorta. Normal visualized thoracic spine. Normal visualized ribs, clavicles, and shoulders. There is no demonstrated abnormality of the visualized soft tissue structures of the upper abdomen. RAD/Chest PA and Lateral IMPRESSION: Normal x-ray examination of the chest. Electronically Signed: Osvaldo Baig MD at 14:29 EDT , Service support ,
--- NOTE | 2019-05-20 09:46 | PFT ---
INTRODUCTION: The patient is an 83-year-old female that presents for pulmonary function studies secondary to a diagnosis of amiodarone use. Respiratory therapy reports good patient effort. INTERPRETATION: Forced expiration spirometry demonstrates no evidence of a large airways obstructive ventilatory defect. Spirograms are of good quality and plateau normally. Body plethysmography was performed and reveals lung volumes to be within normal limits. Diffusing capacity by single breath CO is at the lower limits of normal at 64% of predicted. There has been improvement in the patient's total lung capacity and DLCO since PFTs were last completed in October 2017. IMPRESSION: Normal spirometry, lung volumes and diffusing capacity. There has been improvement in the patient's PFTs since her last completed, as noted above.
== END ==
PROVIDERS: Family Provider Family Medicine; PCP Family Medicine; Referring Provider Internal Medicine Cardiovascular Disease; Visit Provider Internal Medicine Cardiovascular Disease
DX: Z79.899 Other long term (current) drug therapy (principal)
CPT/HCPCS: 71046; 94010; 94726; 94729

== ENCOUNTER 2019-10-20 18:42 | Emergency (ER) | payer MEDICARE, OTHER, SELFPAY ==
[2019-08-31 11:05] VITALS: BMI 34.4
[2019-10-20 18:44] VITALS: BP 224/77; PULSE 65; RESP 16; TEMP 36.6; O2SAT 100; BMI 34.2
--- NOTE | 2019-10-20 19:08 | ED.DCSUM_ITS ---
History of Present Illness Chief Complaint: Lower Extremity Injury Informant: Patient Onset: Today - Today unable to bear weight, Month(s) - Patient reports fall 2 months ago Quality of Pain: Dull Current Severity: Gone Maximum Severity: 10/10 Worsened by: Attempt to weight-bear Relieved by: Much improved if supine Associated Symptoms: Loss of function, Inability to ambulate. Negative for: Parasthesias, Weakness, Loss of consciousness, Amnesia Narrative: Patient is an elderly woman who fell 2 months ago. She states she was doing fine until today. She when she attempted to place weight on her left foot she complains of pain that she localizes to the greater trochanteric region. She states she cannot bear weight. She denies recent fall. She denies paresthesia, anesthesia or motor weakness. Tetanus Immunization: 5-10 years Prior similar symptoms: No Recent Illness/Hospitalization: No - Past Medical History (1) JOAN III (vulvar intraepithelial neoplasia III) Status: Acute (2) Essential hypertension Status: Chronic (3) GERD (gastroesophageal reflux disease) Status: Chronic (4) Hyperlipidemia Status: Chronic (5) Hypothyroidism Status: Chronic (6) Obesity (BMI 30.0-34.9) Status: Chronic (7) Paroxysmal atrial fibrillation Status: Chronic Past Medical History - Allergies and Home Meds Allergies/Adverse Reactions: Allergies No Known Allergies Allergy (Verified 10/20/19 18:49) Primary Care Physician: Urban Ceja MD [Primary Care Provider] - Prior records reviewed: Yes Surgical History: appendectomy, total knee arthroplasty, - - , knee re pair, lumbar spinal surgery to remove benign tumor, 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, removal of skin cancer from her face Lives: Retirement Smoking Status: Never smoker - Family History Maternal Family History: Reports: No pertinent history Paternal Family History: Reports: No pertinent history Review of Systems General: Denies: Chills, Fever Eyes: Denies: Visual changes - bilaterally, Blurred Vision - bilaterally ENT: Denies: Bilateral ear pain Cardiovascular: Denies: Chest pain Respiratory: Denies: Dyspnea Gastrointestinal: Denies: Abdominal pain, Nausea, Vomiting Musculoskeletal: Reports: Extremity Pain. Denies: Myalgias, Arthralgias, Neck pain, Back pain, Swelling, -, - Skin: Denies: Rash, Wounds Neurological: Denies: Headache, Weakness, Numbness Hematologic: Denies: Easy bruising, Easy bleeding Physical Exam Vital Signs/Narrative: Vital Signs Temp Pulse Resp BP Pulse Ox 10/20/19 18:44 97.9 F 65 16 224/77 H 100 Inital Vital Signs reviewed: Yes General: Well nourished, Well developed, Obese Head: Normocephalic, Atraumatic Eyes: Perrl, EOMI. Negative for: Pale conjunctiva, Scleral icterus ENT: TM's clear, No hemotympanum or drainage, No trauma, Hemotympanum Neck: Nontender, Full ROM, Spinal Tenderness Cardiovascular: Regular rate, Regular rhythm, No murmurs, Normal S1, Normal S2 Respiratory: No distress, CTA bilaterally Abdomen: Soft, Nontender, Nondistended, Normal bowel sounds, - - No pain palpation of pelvis Back: Nontender. Negative for: CVA Tenderness - Right, CVA Tenderness - Left Extremeties: There is pain palpation over the left greater trochanteric region. Logrolling does not cause discomfort. She is able to lift her leg off the bed. There is no pain the patient over the patella, joint line and there is no laxity with varus valgus stress testing. There is no pain ovation over the lateral or medial malleolus. There is no pain the patient the base of the fifth metatarsal. There is no evidence of trauma to the foot. Skin: Normal color, No rash Neurological: Alert, Oriented x3, Cranial nerves II-XII grossly intact, Normal Strength, Normal Sensation Psychological: Normal affect - Glascow Coma Scale Eye Opening: Spontaneous Motor: Obeys Commands Verbal: Oriented Coma Scale Total: 15 Diagnostic/Tx/Re-eval Chest X-Ray - ED: 2 View, Read by ED Physician, - - View x-ray of the left hip interpreted by me reveals no evidence of fracture. There is mild degenerative osteoarthritic changes noted of the left proximal femur. There is no evidence of fracture of the inferior superior pubic rami. 10/20/19 19:30 HIP, UNI W/ Pelvis 2-3 Views [RAD] Stat - Medical Decision Making X-ray of the hip was obtained to evaluate for fracture. If there is no evidence of fracture will observe patient standing. If she is unable to bear weight will obtain CT of the hip to rule out fracture. Since x-ray was interpreted by me as negative there was placed for weightbearing. Patient is able to weight-bear and walk without pain. Therefore, she will be discharged back to the nursing facility with appropriate home-going instructions ED Disposition - Plan for ED Patient: Disposition: Home or Assisted Living Diagnosis: Contusion of left hip, initial encounter Instructions: Hip Contusion Referrals: Urban Ceja MD [Primary Care Provider] - As Needed
--- NOTE | 2019-10-20 19:30 | RAD_ITS ---
STUDY: X-RAY - PELVIS AND LEFT HIP REASON FOR EXAM: Female, 84 years old. FELL TWO MONTHS AGO - WENT TO GET UP OUT OF CHAIR TODAY AND PAIN TO LEFT HIP AND UNABLE TO BEAR WEIGHT ON IT TECHNIQUE: 3 views of the pelvis and hip. COMPARISON: None. FINDINGS: There is a non-specific bowel gas pattern. Normal visualized soft tissue structures. Normal bilateral iliac wings, sacroiliac joints and visualized sacrum. Normal bilateral superior and inferior pubic rami. Normal pubic symphysis. Normal bilateral ischial tuberosities. There are osteoarthritic changes of the femoral head with marginal osteophyte formation. Normal acetabulum. There is moderate articular joint space narrowing of the hip. RAD/HIP, UNI W/ Pelvis 2-3 Views IMPRESSION: No acute findings Electronically Signed: Mik Noble DO at 20:04 EDT Tel , Service support ,
[2019-10-20 20:49] VITALS: BP 160/74; PULSE 73; RESP 16; O2SAT 97
== END 2019-10-20 21:15 | disposition home or self-care (01) ==
PROVIDERS: Emergency Provider Emergency Medicine; PCP Family Medicine
DX: S70.02XA Contusion of left hip, initial encounter (principal); W19.XXXA Unspecified fall, initial encounter; Y93.9 Activity, unspecified; Y92.9 Unspecified place or not applicable; I10 Essential (primary) hypertension; I48.0 Paroxysmal atrial fibrillation; E78.5 Hyperlipidemia, unspecified; E03.9 Hypothyroidism, unspecified; E66.9 Obesity, unspecified; Z68.34 Body mass index [BMI] 34.0-34.9, adult; Z79.01 Long term (current) use of anticoagulants; Z79.899 Other long term (current) drug therapy
CPT/HCPCS: 73502; 99284

== ENCOUNTER → 2020-01-05 07:24 | Outpatient (CLI) | payer MEDICARE, OTHER, SELFPAY ==
[2019-12-31 10:55] VITALS: BMI 32.9
[2020-01-05 09:18] LABS: AST(SGOT) 36 U/L (15-37); Alanine Aminotransfer ALT/SGPT 45 U/L (13-56); Albumin, Serum 3.8 g/dL (3.2-5.0); Alkaline Phosphatase 87 U/L (45-117); Bilirubin, Direct 0.16 mg/dL (0.00-0.30); Cholesterol 176 mg/dL (200); Globulin 3.9 g/dL (2.2-4.2); High Density Lipoprotein 110 mg/dL; Protein, Total 7.7 g/dL (6.4-8.2); T4 Free Direct 1.68 ng/dL (0.76-1.46); Triglycerides 63 mg/dL; Very Low Density Lipoprotein 13 mg/dL (5-40)
--- OUTSIDE RECORDS SUMMARY | 2020-05-15 10:06 | XMS RPT_ITS | CCD ---
:1935 External Reference #:[id number] Author Organization [facility] Team Providers Name Role Phone MD Mancini J Unavailable DeFinis, Y Unavailable Unavailable DeFinis, Y Unavailable Unavailable DeFinis, Y Unavailable Unavailable DeFinis, Y Unavailable Unavailable JACOB Blackburn, M Unavailable Unavailable LETARTE, B. Unavailable Unavailable LETARTE, B. Unavailable Unavailable NO REFERRING Unavailable Unavailable ABUQAYYAS Unavailable Unavailable LETARTE, B. Unavailable Unavailable LETARTE, B. Unavailable Unavailable DeFinis, Y Unavailable Unavailable Bertha Santos Unavailable Unavailable DeFinis, Y Unavailable Unavailable DeFinis, Y Unavailable Unavailable JACOB Blackburn, M Unavailable Unavailable Forbes Unavailable Unavailable DeFinis, Y Unavailable Unavailable DeFinis, Y Unavailable Unavailable Divya Mancini Unavailable Alirio Ceja () Primary Care Provider Allergies Reported Allergen Reaction(s) Severity Date of Onset Location dilTIAZem Translations: [ Vomiting 10-09-2016 - [facility] DILTIAZEM] System Reposito ry Medications Medication Name Sig Date Prescriber Location Acetaminophen acetaminophen (TYLENOL EXTRA Ccf Provide r [facility] STRENGTH) 500 mg tablet Take (85151) 500 mg by mouth as needed. 0 Active Comment: Take 500 mg by mouth as need ed. acetaminophen / TYLENOL PM EXTRA STRENGTH 10-12-2014 [facility] diphenhydrAMINE 500-25 MG TABS As needed Group ([id number]) DIPHENHYDRAMINE-APAP (SLEEP) [phone] Ezio Mancini MD TYLENOL PM EXTRA STRENGTH 500-25 MG TABS As 10-12-[address] [facility] (00674) needed DIPHENHYDRAMINE-APAP (SLEEP) [phone] Ezio Mancini MD TYLENOL PM EXTRA STRENGTH 500-25 MG TABS As 10-12-2014 [facility] (82729) needed DIPHENHYDRAMINE-APAP (SLEEP) [phone] Armida Blackburn RN TYLENOL PM EXTRA STRENGTH 500-25 MG TABS As 10-12-2014 [facility] (19610) needed DIPHENHYDRAMINE-APAP (SLEEP) [phone] Armida Blackburn RN TYLENOL PM EXTRA STRENGTH 500-25 MG TABS As 10-12-[address] [facility] (27602) needed DIPHENHYDRAMINE-APAP (SLEEP) [phone] Ezio Mancini MD TYLENOL PM EXTRA STRENGTH 500-25 MG TABS As 10-12-[address] [facility] (77630) needed DIPHENHYDRAMINE-APAP (SLEEP) [phone] Armida Blackburn RN TYLENOL PM EXTRA STRENGTH 500-25 MG TABS As 10-12-[address] [facility] (57775) needed DIPHENHYDRAMINE-APAP (SLEEP) [phone] Ezio Mancini MD TYLENOL PM EXTRA STRENGTH 500-25 MG TABS As 10-12-[address] [facility] (87198) needed DIPHENHYDRAMINE-APAP (SLEEP) [phone] Ezio Mancini MD TYLENOL PM EXTRA STRENGTH 500-25 MG TABS As 10-12-[address] [facility] (53746) needed DIPHENHYDRAMINE-APAP (SLEEP) [phone] Armida Blackburn RN TYLENOL PM EXTRA STRENGTH 500-25 MG TABS As 10-12-2014 [facility] (39600) needed DIPHENHYDRAMINE-APAP (SLEEP) [id number] Armida Blackburn RN TYLENOL PM EXTRA STRENGTH 500-25 MG TABS As 10-12-2014 [facility] (78589) needed DIPHENHYDRAMINE-APAP (SLEEP) [phone] Ezio Mancini MD TYLENOL PM EXTRA STRENGTH 500-25 MG TABS As 10-12-[address] [facility] (78708) needed DIPHENHYDRAMINE-APAP (SLEEP) [phone] Armida Blackburn RN TYLENOL PM EXTRA STRENGTH 500-25 MG TABS As 10-12-2014 [facility] (28545) needed DIPHENHYDRAMINE-APAP (SLEEP) [phone] Ezio Mancini MD Allopurinol allopurinol (ZYLOPRIM) 12-22-2019 Yue ([facility]) [facility] 100 mg tablet Take 1 [facility] (43144) tablet by mouth once daily. For gout. 90 tablet 1 12/22/2019 Active Comment: Take 1 tablet by mouth once daily. For gout. Amiodarone amiodarone (CORDARONE) 01-07-2017 [facility] 200 mg tablet Take 1 (54940) tablet by mouth once daily. Two tablets by mouth twice daily for 2 days then 1 tablet by mouth daily started January 10, 2017 0 01/14/2017 Active AMIODARONE HCL 200 MG TABS 01-07-2017 Armida Blackburn RN [facility] Two tablets by mouth twice (4469 1) daily for five days then One tablet by mouth daily AMIODARONE HCL [id number] Ezio Mancini MD Comment: Take 1 tablet by mouth once daily. Two tablets by mouth twice daily for 2 days then 1 tablet by mouth daily started January 10, 2017 amLODIPine NORVASC 10 MG TABS One 09-28-2014 - 10-12-[address] [facility] tablet by mouth daily (79912 ) AMLODIPINE BESYLATE [id number] Ezio Mancini MD aspirin ASPIRIN 81 MG TABS One 09-28-2014 - 05-02-2015 [facility] tablet by mouth daily (79932 ) ASPIRIN [id number] Samia Forbes ASPIRIN 81 MG TABS One tablet by 09-28-2014 - 05-02-2015 [facility] (81645) mouth daily ASPIRIN [id number] Samia Forbes celecoxib CELEBREX 200 MG 09-28-2014 - [facility] CAPS One tablet by 06-25-2016 Group (44 691) mouth daily CELECOXIB [id number] Armida Blackburn RN Cholecalciferol Cholecalciferol, 12-29-2018 [facility] Vitamin D3, [facility] (64038) (VITAMIN D-3) 2,000 unit cap Take 1 capsule by mouth once daily. 90 capsule 3 12/29/2018 Active Comment: Take 1 capsule by mouth once daily. enoxaparin LOVENOX 100 MG/ML SOLN one 09-27-2014 - 09-30-2014 [facility] subcutaneous injection (4469 1) every morning and evening. Last injection Saturday09/29/14 PM. ENOXAPARIN SODIUM [id number] Armida Blackburn RN LOVENOX 100 MG/ML SOLN one 09-27-2014 - 09-30-2014 [facility] (09856) subcutaneous injection every morning and evening. Last injection Saturday09/29/14 PM. ENOXAPARIN SODIUM [id number] Armida Blackburn RN esomeprazole NEXIUM 40 MG CPDR One tablet by 09-28-[address] [facility] (95576) mouth daily ESOMEPRAZOLE MAGNESIUM [id number] Armida Blackburn RN NEXIUM 40 MG CPDR One tablet by mouth daily 09-28-[address] [facility] (00686) ESOMEPRAZOLE MAGNESIUM [id number] Armida Blackburn RN ferrous sulfate ferrous sulfate 325 07-08-2019 [facility] mg (65 mg iron) [facility] (74164) tablet Take 1 tablet by mouth twice daily with meals. 180 tablet 1 07/08/2019 Active Comment: Take 1 tablet by mouth twice daily with meals. fluticasone fluticasone (FLONASE) 50 03-13-2019 [facility] mcg/actuation nasal [facility] (68756) spray Indications: Cough Use 2 Sprays in each nostril once daily. Rinse mouth after use. 1 Bottle 11 03/13/2019 Active Comment: Use 2 Sprays in each nostril once daily. Rinse mouth after use. hydroCHLOROthiazide hydroCHLOROthiazide 04-05-2020 - Yue ([facility]) C leveland (HYDRODIURIL, ESIDRIX) 04-11-2020 [facility] 50 mg tablet (67980) Indications: Essential hypertension Take 1 tablet by mouth once daily. 90 tablet 1 04/11/2020 Active hydroCHLOROthiazide 12-04-2019 - Willam Woodard) [facility] (HYDRODIURIL, ESIDRIX) 25 mg 04-05-2020 [facility] (44 195) tablet Take 1 tablet by mouth once daily. 90 tablet 0 04/05/2020 04/05/2020 Discontinued Comment: Take 1 tablet by mouth once daily. hydroCHLOROthiazide / losartan-hydrochlorothiazide 03-18-2020 - Abdiel [facility] Losartan (HYZAAR) 100-25 mg per tablet 04-05-2020 ([facility]) Clinic Indications: Essential [facility] (4419 5) hypertension Take 1 tablet by mouth once daily. 30 tablet 0 03/30/2020 04/05/2020 Discontinued Comment: Take 1 tablet by mouth once daily. hydroCHLOROthiazide / VALSARTAN-HYDROCHLOROTHIAZIDE 09-28-[address] valsartan 320-25 MG TABS One tablet by [facility] mouth daily (4469 1) VALSARTAN-HYDROCHLOROTHIAZIDE [id number] Armida Blackburn RN Isosorbide ISOSORBIDE ORAL Take by mouth. [facility] Sanchez 0 Active [facility] (21511) ISOSORBIDE ORAL Take by mouth. 0 Active [facility] (61761) ISOSORBIDE ORAL Take by mouth. 0 Active [facility] (41695) ISOSORBIDE ORAL Take by mouth. 0 Active [facility] (37713) ISOSORBIDE ORAL Take by mouth. 0 Active [facility] (85055) ISOSORBIDE ORAL Take by mouth. 0 Active [facility] (95026) ISOSORBIDE ORAL Take by mouth. 0 Active [facility] (79332) Comment: Take by mouth. levothyroxine levothyroxine 12-12-2018 Willam Woodard) [facility] (SYNTHROID) 100 mcg [facility] (4 4654) tablet Indications: Acquired hypothyroidism Take 1 tablet by mouth daily before breakfast. 90 tablet 1 02/15/2020 Active SYNTHROID 100 MCG TABS 10-12-2014 Armida M Sarahner, [facility] One tablet by mouth daily RN (14944 ) LEVOTHYROXINE SODIUM [id number] Ezio Mancini MD SYNTHROID 100 MCG TABS 10-12-2014 [facility] One tablet by mouth daily (71926 ) LEVOTHYROXINE SODIUM [id number] Armida Blackburn RN SYNTHROID 100 MCG TABS 10-12-2014 Armida Bertha Smithner, [facility] One tablet by mouth daily RN (62491 ) LEVOTHYROXINE SODIUM [id number] Ezio Mancini MD SYNTHROID 100 MCG TABS 10-12-2014 Armida Bertha Smithner, [facility] One tablet by mouth daily RN (21958 ) LEVOTHYROXINE SODIUM 16122794569 Ezio Mancini MD SYNTHROID 100 MCG TABS 10-12-[address] [facility] One tablet by mouth daily (01524 ) LEVOTHYROXINE SODIUM [id number] Armida Blackburn RN SYNTHROID 100 MCG TABS 10-12-2014 Armida M Sarahner, [facility] One tablet by mouth daily RN (26106 ) LEVOTHYROXINE SODIUM [id number] Ezio Mancini MD SYNTHROID 100 MCG TABS 10-12-2014 [facility] One tablet by mouth daily (60661 ) LEVOTHYROXINE SODIUM [id number] Armida Blackburn RN SYNTHROID 100 MCG TABS 10-12-2014 Armida Bertha Smithner, [facility] One tablet by mouth daily RN (73471 ) LEVOTHYROXINE SODIUM [id number] Ezio Mancini MD SYNTHROID 100 MCG TABS 10-12-2014 [facility] One tablet by mouth daily (61224 ) LEVOTHYROXINE SODIUM 16885396622 Armida Blackburn RN SYNTHROID 100 MCG TABS 10-12-[address] [facility] One tablet by mouth daily RN (00475 ) LEVOTHYROXINE SODIUM 66809382638 Ezio Mancini MD SYNTHROID 100 MCG TABS 10-12-2014 [facility] One tablet by mouth daily (33030 ) LEVOTHYROXINE SODIUM 30048254517 Armida Blackburn RN SYNTHROID 100 MCG TABS 10-12-[address] [facility] One tablet by mouth daily (90034 ) LEVOTHYROXINE SODIUM 41343169479 Armida Blackburn RN SYNTHROID 100 MCG TABS 10-12-[address] [facility] One tablet by mouth daily RN (61063 ) LEVOTHYROXINE SODIUM 86978048805 Ezio Mancini MD LEVOXYL 125 MCG TABS One 09-28-2014 - [facility] tablet by mouth daily 05-02-2015 (90208) LEVOTHYROXINE SODIUM 10834953337 Armida Blackburn RN LEVOXYL 125 MCG TABS One 09-28-2014 - [facility] tablet by mouth daily 05-02-2015 (76064) LEVOTHYROXINE SODIUM 70750419296 Samia Forbes LEVOXYL 125 MCG TABS One 09-28-[address] [facility] tablet by mouth daily (93522) LEVOTHYROXINE SODIUM 04169857314 Armida Blackburn RN LEVOXYL 125 MCG TABS One 09-28-[address] [facility] tablet by mouth daily (32423) LEVOTHYROXINE SODIUM 29074188916 Armida Blackburn RN LEVOXYL 125 MCG TABS One 09-28-2014 - [facility] tablet by mouth daily 05-02-2015 (98861) LEVOTHYROXINE SODIUM 03910875738 Samia Forbes LEVOXYL 125 MCG TABS One 09-28-[address] [facility] tablet by mouth daily (35587) LEVOTHYROXINE SODIUM [id number] Armida Blackburn RN LEVOXYL 125 MCG TABS One 09-28-2014 - [facility] tablet by mouth daily 05-02-2015 (42637) LEVOTHYROXINE SODIUM 64841494506 Samia Forbes LEVOXYL 125 MCG TABS One 09-28-[address] [facility] tablet by mouth daily (57009) LEVOTHYROXINE SODIUM 43409666135 Armida Blackburn RN LEVOXYL 125 MCG TABS One 09-28-2014 - [facility] tablet by mouth daily 05-02-2015 (07298) LEVOTHYROXINE SODIUM 84973226812 [place] Forbes LEVOXYL 125 MCG TABS One 09-28-2014 - [facility] tablet by mouth daily 05-02-2015 (24140) LEVOTHYROXINE SODIUM 38475994512 Samia Andrei LEVOXYL 125 MCG TABS One 09-28-2014 [facility] tablet by mouth daily (83790) LEVOTHYROXINE SODIUM 04299061840 Armida Blackburn RN LEVOXYL 125 MCG TABS One 09-28-2014 - [facility] tablet by mouth daily 05-02-2015 (96379) LEVOTHYROXINE SODIUM [id number] [place] Forbes LEVOXYL 125 MCG TABS One 09-28-2014 [facility] tablet by mouth daily (15570) LEVOTHYROXINE SODIUM 00760584068 Armida Blackburn RN Comment: Take 1 tablet by mouth daily before breakfast. TAKE 1 TABLET DAILY BEFORE B REAKFAST Losartan losartan (COZAAR) 04-05-2020 - Willam Woodard) [facility] 100 mg tablet Take 10-02-2020 Bren[facility] (54296) 1 tablet by mouth once daily. 90 tablet 0 04/05/2020 10/02/2020 Active Comment: Take 1 tablet by mouth once daily. metoprolol metoprolol succinate ER 01-04-2020 Yue ([place]) [facility] (TOPROL XL) 50 mg 24 hr (446 91) tablet Indications: Essential hypertension Take 1 tablet by mouth once daily. 90 tablet 1 01/04/2020 Active METOPROLOL SUCCINATE ER 50 MG [id number] One 10-12-2014 [facility] (50595) tablet by mouth daily METOPROLOL SUCCINATE [id number] Ezio Mancini MD METOPROLOL SUCCINATE ER 100 MG [id number] One 10-12-[address] [facility] (93904) tablet by mouth daily METOPROLOL SUCCINATE 10109039901 Armida Blackburn RN Comment: Take 1 tablet by mouth once daily. nebivolol BYSTOLIC 10 MG TABS 09-28-2014 - [facility] One tablet by mouth 10-12-2014 Group (4 4691) daily NEBIVOLOL HCL [id number] rAmida Blackburn RN rivaroxaban XARELTO 15 MG TABS 12-14-2015 [facility] One tablet by mouth RN Group (4 4691) daily RIVAROXABAN [id number] Rohan Robder [employer] Comment: Take 15 mg by mouth once ezio ly. simvastatin simvastatin (ZOCOR) 40 mg 07-08-2019 Yue ([facility]) [facility] tablet Indications: Mixed [facility] Gr oup (80539) hyperlipidemia Take 1 tablet by mouth daily at bedtime. 90 tablet 1 07/08/2019 Active SIMVASTATIN 40 MG TABS one tablet every 09-28-[address] [facility] (53586) night SIMVASTATIN [id number] Armida Blackburn RN Comment: Take 1 tablet by mouth daily at bedtime. 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 (92400) Cardiac dysrhythmias Atrial fibrillation Active 09-24-2014 - [facility] (68703) Chronic kidney disease Chronic kidney disease Active 02-22-20 18 - [facility] stage 3 (53178) Disorders of lipid Hyperlipidemia Active 09-28-[address] - [facility] metabolism [facility] (22297) Esophageal disorders Gastroesophageal reflux Active - [facility] disease [facility] (98750) Essential hypertension Essential (primary) Active 09-29-2015 - [facility] hypertension [facility] System (01461) Gout and other crystal Gout Active [facility] arthropathies (70834) Nutritional Vitamin D deficiency Active 09-29-2015 - [facility] deficiencies (92878) Osteoarthritis Osteoarthritis of right Active 09-29-2015 - [facility] knee joint (87343) Other connective tissue Other bursal cyst, other Active 10-31 - [facility] disease site Health System (98451) Other connective tissue Pain of left thigh Active 05-09-2016 - [facility] disease (18799) Other nutritional; Obesity, unspecified Active 10-31-2016 - [facility] General endocrine; and Health System metabolic disorders (97090) Other nutritional; Body mass index (BMI) Active 10-12-2014 - [facility] endocrine; and 35.0-35.9, adult Group (44 691) metabolic disorders Pulmonary heart disease Pulmonary hypertension Active 015 - [facility] (40462) Thyroid disorders Hypothyroidism Active 09-28-2014 - [facility] (84398) Unclassified Family history of Active 10-31-2016 - [facility] ischemic heart disease Healt h System and other diseases of the (0 0000) circulatory system Unclassified Preoperative Active 10-02-2016 - [facility] cardiovascular [facility] (15004) examination Unclassified Long-term drug therapy Active 09-24-2014 - [facility] (85042) Past or Other Problems Category Problem Name Status Date Location Deficiency and other Iron deficiency anemia Completed 06-12-2018 - [facility] anemia (53774) Nonspecific chest pain Chest pain, unspecified Completed 015 - [facility] - 04-30-2015 Group (60167) - Other aftercare snf (current) use Completed 03-29-2015 - [facility] anticoagulants Group (446 91) Other 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 09-24-2014 [facility] (current) drug therapy Group (22615) Other circulatory Diastolic dysfunction Completed 09-28-2014 - [facility] disease [facility] (53602) Other connective tissue Synovial cyst of lumbar Completed 2015 - [facility] disease spine (96131) Other non-epithelial Personal history of Completed 10-31-2016 - [facility] cancer of skin other malignant Health Sys tem neoplasm of skin (77427) Other non-traumatic Hip pain Completed 02-06-2019 - [facility] joint disorders (30288) Spondylosis; Other spondylosis with Completed 06-28-2016 - [facility] intervertebral disc radiculopathy, Health System disorders; other back lumbosacral region (98899) problems Results Result Name Value Range Unit Interpretation Flag Date Location [facility] on 2020-04-29 OLIVERN Telephone (FAMPWS) Normal 04-29-2020 [facility] ROSA BOWIE ([id number]) 1935 [address] [place] Date Time Provider Department ([id number]) 04/29/20 WILLAM CEJA) DARAWS During your visit today, we recorded the following informati on about you: Amisha Solis LPN, RISK MANAGEMENT MANAGER 04/29/2020 9:31 AM Signed ----- Message from Yue ([facility]) [facility] sent at 04/29/2020 8:45 AM EDT ----- Please call patient and let her know kidney function stable with some improvement. Continue medications, low s alt diet, and avoiding NSAID products. Thanks, Yue Podloglizette, SILVERSMITH APPRENTICE.CONTROLS TECHNICIAN Amisha Solis LPN, MATILDA 04/29/2020 9:33 AM Signed Spoke with pt gave information provided. Pt voices gladys davis. Allergies As of Date: 04/29/2020 Noted Allergy Reaction DILTIAZEM 10/09/2016 11 - Vomiting Comments: During hospital stay 10/02 Date Reviewed: 04/27/2020 Reviewed by: Amisha Stone (Matilda) MATILDA Solis - Fully Assessed Reason for Visit: Results [95] Prescriptions as of 04/29/2020 Sig: HYDROCHLOROTHIAZIDE 50 MG TAB* Take 1 tablet by mouth once d * LOSARTAN 100 MG TABLET Take 1 tablet by mouth once d* LEVOTHYROXINE 100 MCG TABLET Take 1 tablet by mouth daily * METOPROLOL SUCCINATE ER 50 MG* Take 1 tablet by mouth once d * ALLOPURINOL 100 MG TABLET Take 1 tablet by mouth once d* ISOSORBIDE ORAL Take by mouth. FERROUS SULFATE 325 MG (65 MG* Take 1 tablet by mouth twice * SIMVASTATIN 40 MG TABLET Take 1 tablet by mouth daily * FLUTICASONE PROPIONATE 50 MCG* Use 2 Sprays in each nostril * Patient not taking: Reported on 04/27/2020 CHOLECALCIFEROL (VITAMIN D3) * Take 1 capsule by mouth once * LEVOTHYROXINE 100 MCG TABLET TAKE 1 TABLET DAILY BEFORE BR* AMIODARONE 200 MG TABLET Take 1 tablet by mouth once d* ACETAMINOPHEN 500 MG TABLET Take 500 mg by mouth as neede* XARELTO ORAL Take 15 mg by mouth once karla* Problem List As Of Date 04/29/2020 Noted Resolved Paroxysmal atrial fibrillation (HCC) [I48.0] 09/29/2015 More... Acquired hypothyroidism [E03.9] 09/29/2015 More... Mixed hyperlipidemia [E78.2] 09/29/2015 More... Essential hypertension [I10] 09/29/2015 More... Gastroesophageal reflux disease [K21.9] 09/29/2015 Vitamin D deficiency [E55.9] 09/29/2015 Primary osteoarthritis of right knee [M17.11] 09/29/2015 Left thigh pain [M79.652] 05/09/2016 Synovial cyst of lumbar facet joint [M71.38] 06/28/2016 Lumbar radiculopathy, chronic [M54.16] 06/28/2016 CKD (chronic kidney disease) Stage 3, GFR 30-59*02/21/2018 Iron deficiency anemia [D50.9] 06/12/2018 JOAN III (vulvar intraepithelial neoplasia III) * Gout [M10.9] Pain in left hip [M25.552] 02/06/2019 Encounter Status:Closed by AMISHA SOLIS LPN on 04/29/20 remote bmp (for [facility] use only) on 2020-04-27 Anion gap [Moles/Vol] 14 9-18 mmol/L Normal 04-27-20 [facility] ([id number]) Comment: Performed By: #### RBMP #### [place] [address] [place], [place] [id number] [phone] Calcium [Mass/Vol] 10.4 8.5-10.2 mg/dL High 04-27-2020 [facility] (78071) Comment: Performed By: #### RBMP #### [place] [address] [place], [place] [phone] Chloride [Moles/Vol] 100 97-105 mmol/L Normal 0 [facility] (22238) Comment: Performed By: #### RBMP #### [facility] [place], [place] [phone] CO2 [Moles/Vol] 26 22-30 mmol/L Normal 04-27-[address] [facility] (99213) Comment: Performed By: #### RBMP #### [facility] [id number], [place] [phone] Creatinine [Mass/Vol] 1.19 0.58-0.96 mg/dL High 04-27-20 [facility] (46781) Comment: Performed By: #### RBMP #### [facility], [place] [phone] eGFR- Amer. 52 Normal 04-27-2020 [facility] (79447) Comment: Performed By: #### RBMP #### [facility] [id number] [place], [place] [phone] GFR/1.73 sq M predicted among 43 . Normal 04-27-2020 [facility] non-blacks MDRD (S/P/Bld) [Vol (01921) rate/Area] Comment: Result Comment: eGFR (Estima lucretia GFR) Units of measure: mL/min/1.73 meters squared eGFR is derived from the ree xpressed MDRD Study equation using the following parameters: serum creatinine, age, gender and race. The creatinine assay has been calibrated to be traceable to IDMS. An eGFR <60 mL/min/1.73m2 fo r >3 months is consistent with chronic kidney disease. Refer to KDOQI guidelines for clinical interpretation. In patients with unstable re nal function, e.g. those with acute kidney injury, the eGFR may not accurately reflect actual GFR. Performed By: #### RBMP #### [facility] [id number], [place] [phone]- [phone] Glucose [Mass/Vol] 99 74-99 mg/dL Normal 04-27-2020 [facility] (80773) Comment: Result Comment: The [place] Diabetes [employer] (ADA) provides guidance for cutoff values for fasting glucose and random glucose. The ADA defines fasting as no caloric intake for at least 8 hours. Fas ting plasma glucose results between 100 to 125 mg/dL indicate increased risk for diabetes (prediabetes). Fasting plasma glucose resul ts greater than or equal to 126 mg/dL meet the criteria for diagnosis of diabetes. In the absence of unequivocal hyperglycemia, results should be confirmed by repeat testing. In a patient with classic s ymptoms of hyperglycemia or hyperglycemic crisis, random plasma glucose results greater than or equal to 200 mg/dL meet the criteria for diagnosis of diabetes. Reference: Standards of [facility] Care in Diabetes 2016, [employer]. Diabetes Care. 2016.39(Suppl 1). Performed By: #### RBMP #### [facility] [address] [place], [place] [phone] Potassium [Moles/Vol] 3.7 3.7-5.1 mmol/L Normal 04-27-20 20 [facility] ([id number]) Comment: Performed By: #### RBMP #### [facility] [address] [place], [place] [phone] Sodium [Moles/Vol] 140 136-144 mmol/L Normal 04-27-2020 [facility] ([id number]) Comment: Performed By: #### RBMP #### [id number] [place], [place] [phone] Urea nitrogen [Mass/Vol] 23 7-21 mg/dL High 04-27 [facility] ([id number]) Comment: Performed By: #### RBMP #### [facility] [place], [place] [phone] progress on 2020-03 PROGRESS HNO ID: [id number] Normal 04-27-2020 [facility] Author: Yue Patel) [facility]liz[facility] [place] ([id number]) Service: ? Author Type: Nurse Practitioner Type: Progress Notes Filed: 04/27/2020 1:40 PM Note Text: 04/27/2020 CC: follow-up SUBJECTIVE: This is a 84 year old that is here today for Abo ve Complaints. Since last office visit has been doing well. No ER visits or hospitalizations. No recent falls. Got flu shot about a week ago at [facility] PAF: Last saw cards at [facility] on 12/31/2019. No changes made to medications at that time. Blood work obtained at that time is in Epic an d I have reviewed. Denies SOB, dyspnea, coughing, chest pain, palpita tions, or leg edema. HTN: Patient is compliant with meds Yes Monitors bp at home: Yes. Denies side effects: Yes. Chest pain: No. Dyspnea: No. Edema: No. Palpitations: No. Syncope: No. Headache: No. Dizziness: No. Brought in the last 5 days of BPs and home. Had a couple of elevated BPs of 170/90' and another of 152/91. The rest were below 140/90 HYPERLIPIDEMIA: Patient is taking medications: Yes. Patient is watching diet: Yes. Patient denies myalgias: Yes. Patient denies gi upset: Yes HYPOTHYROIDISM: Taking synthroid as prescribed. Denies heat/ cold intolerance, hair/skin/nail changes, constipation or diarrhe a CKD: Continues to avoid NSAIDs and eating low salt diet. Uri nating without difficulty. PAST MEDICAL HISTORY Diagnosis Date - Basal cell carcinoma Dr. 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 Mancini cardiology - SCC (squamous cell carcinoma) face, right leg - Skin cancer - JOAN III (vulvar intraepithelial neoplasia III) - Vitamin D deficiency ALLERGIES Diltiazem MEDICATIONS Current Outpatient Medications Medication Sig - hydroCHLOROthiazide (HYDRODIURIL, ESIDRIX) 50 mg tablet Ta ke 1 tablet by mouth once daily. - losartan (COZAAR) 100 mg tablet Take 1 tablet by mouth onc e daily. - levothyroxine (SYNTHROID) 100 mcg tablet Take 1 tablet by mouth daily before breakfast. - metoprolol succinate ER (TOPROL XL) 50 mg 24 hr tablet Gabe e 1 tablet by mouth once daily. - allopurinol (ZYLOPRIM) 100 mg tablet Take 1 tablet by mout h once daily. For gout. - ISOSORBIDE ORAL Take by mouth. - ferrous sulfate 325 mg (65 mg iron) tablet Take 1 tablet b y mouth twice daily with meals. - simvastatin (ZOCOR) 40 mg tablet Take 1 tablet by mouth da zaida at bedtime. - fluticasone (FLONASE) 50 mcg/actuation nasal spray Use 2 S prays in each nostril once daily. Rinse mouth after use. - Cholecalciferol, Vitamin D3, (VITAMIN D-3) 2,000 unit cap Take 1 capsule by mouth once daily. - levothyroxine (SYNTHROID) 100 mcg tablet TAKE 1 TABLET EZIO LY BEFORE BREAKFAST - amiodarone (CORDARONE) 200 mg tablet Take 1 tablet by mout h once daily. Two tablets by mouth twice daily for 2 days then 1 tablet by mouth daily started January 10, 2017 - acetaminophen (TYLENOL EXTRA STRENGTH) 500 mg tablet Take 500 mg by mouth as needed. - RIVAROXABAN (XARELTO ORAL) Take 15 mg by mouth once daily. No current facility-administered medications for this visit. Medications and allergies reviewed by this provider. SOCIAL HISTORY Social History Tobacco Use - Smoking status: Former Smoker Packs/day: 2.00 Years: 20.00 Pack years: 40.00 Types: Cigarettes Quit date: 12/26/1977 Years since quittin.3 - Smokeless tobacco: Never Used Substance Use Topics - Alcohol use: Yes Alcohol/week: 17.5 standard drinks Types: 7 Glasses of Wine (5oz) per week Frequency: Never - Drug use: No REVIEW OF SYSTEMS All other reviewed and negative other than HPI. OBJECTIVE: BP 138/78 (BP Site: Left Arm, BP Position: Sitting, BP Cuff Size: Large Adult) Pulse 62 Resp 20 Wt 88.3 kg (194 lb 9.6 oz) B PA 32.38 kg/m? . Vital signs reviewed by this provider. APPEARANCE Well appearing, alert, in no acute distress, well -hydrated, well nourished. and Overweight HEART RRR with normal S1 and S2, no murmurs, no gallops, no JVD appreciated LUNG clear to auscultation. No wheezes, rhonchi, or rales EXTREMITIES Extremities normal, No deformities, No skin disc oloration and No edema SKIN Skin color, texture, turgor normal, no suspicious rashe s or lesions to exposed skin Component Latest Ref Rng AND Units 09/28/2019 Color Yellow Yellow Clarity Clear Clear Glucose, Urine Negative mg/dL Negative Bilirubin, Urine Negative Negative Ketones, Urine Negative Negative Specific Harvey, Ur 1.005 - 1.030 1.020 Hemoglobin/Blood,Ur Negative Negative pH, Urine 4.5 - 8.0 6.0 Protein, Urine Negative mg/dL Negative Urobilinogen Normal Normal Nitrites Negative Negative Leukest Negative Trace (A) Comment SEE COMMENT Urine Greg Comment SEE COMMENT WBC, Urine 0 - 5 /HPF 0-5 RBC, Urine 0 - 3 /HPF 0-3 Epithelial Cells /HPF SEE COMMENT Protein, Total 6.3 - 8.0 g/dL 6.9 Albumin 3.9 - 4.9 g/dL 4.3 Calcium 8.5 - 10.2 mg/dL 10.3 (H) Bilirubin, Total 0.2 - 1.3 mg/dL 0.3 Alkaline Phosphatase 34 - 123 U/L 82 AST 13 - 35 U/L 44 (H) Glucose 74 - 99 mg/dL 91 BUN 7 - 21 mg/dL 34 (H) Creatinine 0.58 - 0.96 mg/dL 1.30 (H) Sodium 136 - 144 mmol/L 139 Potassium 3.7 - 5.1 mmol/L 3.9 Chloride 97 - 105 mmol/L 100 CO2 22 - 30 mmol/L 26 Anion Gap 9 - 18 mmol/L 13 ALT 7 - 38 U/L 37 eGFR- 47 eGFR-All Other Races . 39 WBC 3.70 - 11.00 k/uL 6.55 RBC 3.90 - 5.20 m/uL 4.73 Hemoglobin 11.5 - 15.5 g/dL 13.7 Hematocrit 36.0 - 46.0 % 42.6 MCV 80.0 - 100.0 fL 90.1 MCH 26.0 - 34.0 pG 29.0 MCHC 30.5 - 36.0 g/dL 32.2 RDW-CV 11.5 - 15.0 % 14.8 Platelet Count 150 - 400 k/uL 197 MPV 9.0 - 12.7 fL 11.2 Absolute nRBC <0.01 k/uL <0.01 Total Cholesterol, Nonfasting <200 mg/dL 168 Triglycerides, Nonfasting <150 mg/dL 79 HDL Cholesterol, Nonfasting >39 mg/dL 104 LDL Cholesterol, Nonfasting <100 mg/dL 48 Non HDL Cholesterol, Nonfasting <130 mg/dL 64 VLDL Cholesterol, Nonfasting <30 mg/dL 16 Total Chol/HDL Ratio, Nonfasting <5.10 mg/dL 1.62 LDL/HDL Ratio, Nonfasting <2.54 mg/dL 0.46 TSH 0.270 - 4.200 uU/mL 2.420 SHINGRIX VACCINE(1 of 2) due on 1985 ADVANCE DIRECTIVE DISCUSSION due on 2000 DTAP,TDAP,TD(2 - Td) due on 09/26/2020 DIABETES SCREEN due on 09/27/2022 BONE DENSITY Completed INFLUENZA Completed PNEUMOVAX AGE 65 AND OVER WITH 5YR LOOKBACK Completed MENINGOCOCCAL CONJUGATE Completed ASSESSMENT/PLAN: 1. Essential hypertension - ICD9: 401.9, ICD10: I10 (primary diagnosis) - normal BP reading in office today - Continue current medication(s) - Encouraged dietary sodium restriction/DASH diet - Recommended regular aerobic exercise. - Recommend home blood pressure monitoring, to bring results in on next visit - Discussed need and benefit for weight loss. - Recheck in 6 months, sooner should new symptoms or problem s arise. - Goal of BP <140/90 - Continue to monitor BP at home. If readings continue to be greater than 140/90 let us know - Recommended no refined sugar, low refined starch, healthy oil intake (olive oil), healthy protein (fish) along the lines of the M jord[place] diet. 2. CKD (chronic kidney disease) Stage 3, GFR 30-59 ml/min - ICD9: 585.3, ICD10: N18.3 - BMP (BMP) (FOR REMOTE [facility] USE) 3. Mixed hyperlipidemia - ICD9: 272.2, ICD10: E78.2 - recent blood work in December shows good control - Continue current medication. - Follow up in 6 months. - Encouraged following a low carbohydrate, healthy oil intak e diet. 4. Hypothyroidism, acquired - ICD9: 244.9, ICD10: E03.9 - Instructed patient on importance of taking on an empty sto mach either first thing in the morning or at bedtime. - Follow up in 6 months 5. Paroxysmal atrial fibrillation (HCC) - ICD9: 427.31, ICD1 0: I48.0 - follow-up with cardiology as scheduled Yue Chang, SILVERSMITH APPRENTICE.CONTROLS TECHNICIAN Prescription instructions reviewed with patient as applicabl e. Patient advised if symptoms do not improve or if symptoms worsen zara ner, to contact their primary care physician. Potential red flag sym ptoms discussed with the patient. Reviewed appropriate action plan to take if red flag symptoms occur. Patient agreeable to treatment plan . cnov on 2020-04-27 CNOV Office Visit (FAMPWS) Normal 04-27-20 [place] ROSA Sharma ([id number]) 1935 [address] [place] Date Time Provider Department ([id number]) 04/27/20 11:00 AM PODLOGAR, YUE (OLIVER) MARY During your visit today, we recorded the following informati on about you: Pulse Respiration Blood pressure Weight 62/minute 20/minute 138/78 88.3 kg Yue Chang APRN.CNP 04/27/2020 1:40 PM Signed 04/27/2020 CC: follow-up SUBJECTIVE: This is a 84 year old that is here today for Abo ve Complaints. Since last office visit has been doing w ell. No ER visits or hospitalizations. No recent falls. Got flu shot about a week ago at [facility] PAF: Last saw cards at [facility] on 12/31/2019. No changes made to medications at that time. Blood work obtained at that time is in [employer] and I have reviewed. Denies SOB, dyspnea, coughing, chest pain, palpitations, or leg edema. HTN: Patient is compliant with meds Yes Monitors bp at home: Yes. Denies side effects: Yes. Chest pain: No. Dyspnea: No. Edema: No. Palpitations: No. Syncope: No. Headache: No. Dizziness: No. Brought in the last 5 days of BPs and home. Had a couple o f elevated BPs of 170/90' and another of 152/91. The rest were below 140/90 HYPERLIPIDEMIA: Patient is taking medications: Yes. Patient is watching diet: Yes. Patient denies myalgias: Yes. Patient denies gi upset: Yes HYPOTHYROIDISM: Taking synthroid as prescribed. Denies heat/cold intolerance, hair/skin/nail changes, constipation or diarrhea CKD: Continues to avoid NSAIDs and eating low salt diet. Uri nating without difficulty. PAST MEDICAL HISTORY Diagnosis Date - Basal cell carcinoma Dr. 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 Mancini cardiology - SCC (squamous cell carcinoma) face, right leg - Skin cancer - JOAN III (vulvar intraepithelial neoplasia III) - Vitamin D deficiency ALLERGIES Diltiazem MEDICATIONS Current Outpatient Medications Medication Sig - hydroCHLOROthiazide (HYDRODIURIL, ESIDRIX) 50 mg tablet Ta ke 1 tablet by mouth once daily. - losartan (COZAAR) 100 mg tablet Take 1 tablet by mouth onc e daily. - levothyroxine (SYNTHROID) 100 mcg tabl et Take 1 tablet by mouth daily before breakfast. - metoprolol succinate ER (T OPROL XL) 50 mg 24 hr tablet Take 1 tablet by mouth once daily. - allopurinol (ZYLOPRIM) 100 mg tablet Take 1 ta blet by mouth once daily. For gout. - ISOSORBIDE ORAL Take by mouth. - ferrous sulfate 325 mg (65 mg iron) tablet Take 1 tablet by mouth twice daily with meals. - simvastatin (ZOCOR) 40 mg tablet Take 1 tablet by mouth daily at bedtime. - fluticasone (FLONASE) 50 mcg/actuation nasal spray Use 2 S prays in each nostril once daily. Rinse mouth after use. - Cholecalciferol, Vitamin D3, (VITAMIN D-3) 2,0 00 unit cap Take 1 capsule by mouth once daily. - levothyroxine (SYNTHROID) 100 mcg tablet TAKE 1 TABLET DAILY BEFORE BREAKFAST - amiodarone (CORDARONE) 200 mg tablet Take 1 ta blet by mouth once daily. Two tablets by mouth twice daily for 2 days then 1 tablet by mouth daily started January 10, 2017 - acetaminophen (TYLENOL EXTRA STRENGTH) 500 mg tablet Take 500 mg by mouth as needed. - RIVAROXABAN (XARELTO ORAL) Take 15 mg by mouth once daily. No current facility-administered medications for this visit. Medications and allergies reviewed by this provider. SOCIAL HISTORY Social History Tobacco Use - Smoking status: Former Smoker Packs/day: 2.00 Years: 20.00 Pack years: 40.00 Types: Cigarettes Quit date: 12/26/1977 Years since quittin.3 - Smokeless tobacco: Never Used Substance Use Topics - Alcohol use: Yes Alcohol/week: 17.5 standard drinks Types: 7 Glasses of Wine (5oz) per week Frequency: Never - Drug use: No REVIEW OF SYSTEMS All other reviewed and negative other than HPI. OBJECTIVE: BP 138/78 (BP Site: Left Arm, BP Positio n: Sitting, BP Cuff Size: Large Adult) Pulse 62 Resp 20 Wt 88.3 kg (194 lb 9.6 oz) BMI 32 .38 kg/m? . Vital signs reviewed by this provider. APPEARANCE Well appearing, alert, in no acute distress, we ll-hydrated, well nourished. and Overweight HEART RRR with normal S1 and S2, no murmurs, no gallops, n o JVD appreciated LUNG clear to auscultation. No wheezes, rhonchi, or rales EXTREMITIES Extremities normal, No deformities, No ski n discoloration and No edema SKIN Skin color, texture, turgor normal, no suspicious brendan hes or lesions to exposed skin Component Latest Ref Rng AND Units 09/28/2019 Color Yellow Yellow Clarity Clear Clear Glucose, Urine Negative mg/dL Negative Bilirubin, Urine Negative Negative Ketones, Urine Negative Negative Specific Harvey, Ur 1.005 - 1.030 1.020 Hemoglobin/Blood,Ur Negative Negative pH, Urine 4.5 - 8.0 6.0 Protein, Urine Negative mg/dL Negative Urobilinogen Normal Normal Nitrites Negative Negative Leukest Negative Trace (A) Comment SEE COMMENT Urine Greg Comment SEE COMMENT WBC, Urine 0 - 5 /HPF 0-5 RBC, Urine 0 - 3 /HPF 0-3 Epithelial Cells /HPF SEE COMMENT Protein, Total 6.3 - 8.0 g/dL 6.9 Albumin 3.9 - 4.9 g/dL 4.3 Calcium 8.5 - 10.2 mg/dL 10.3 (H) Bilirubin, Total 0.2 - 1.3 mg/dL 0.3 Alkaline Phosphatase 34 - 123 U/L 82 AST 13 - 35 U/L 44 (H) Glucose 74 - 99 mg/dL 91 BUN 7 - 21 mg/dL 34 (H) Creatinine 0.58 - 0.96 mg/dL 1.30 (H) Sodium 136 - 144 mmol/L 139 Potassium 3.7 - 5.1 mmol/L 3.9 Chloride 97 - 105 mmol/L 100 CO2 22 - 30 mmol/L 26 Anion Gap 9 - 18 mmol/L 13 ALT 7 - 38 U/L 37 eGFR- 47 eGFR-All Other Races . 39 WBC 3.70 - 11.00 k/uL 6.55 RBC 3.90 - 5.20 m/uL 4.73 Hemoglobin 11.5 - 15.5 g/dL 13.7 Hematocrit 36.0 - 46.0 % 42.6 MCV 80.0 - 100.0 fL 90.1 MCH 26.0 - 34.0 pG 29.0 MCHC 30.5 - 36.0 g/dL 32.2 RDW-CV 11.5 - 15.0 % 14.8 Platelet Count 150 - 400 k/uL 197 MPV 9.0 - 12.7 fL 11.2 Absolute nRBC <0.01 k/uL <0.01 Total Cholesterol, Nonfasting <200 mg/dL 168 Triglycerides, Nonfasting <150 mg/dL 79 HDL Cholesterol, Nonfasting >39 mg/dL 104 LDL Cholesterol, Nonfasting <100 mg/dL 48 Non HDL Cholesterol, Nonfasting <130 mg/dL 64 VLDL Cholesterol, Nonfasting <30 mg/dL 16 Total Chol/HDL Ratio, Nonfasting <5.10 mg/dL 1.62 LDL/HDL Ratio, Nonfasting <2.54 mg/dL 0.46 TSH 0.270 - 4.200 uU/mL 2.420 SHINGRIX VACCINE(1 of 2) due on 1985 ADVANCE DIRECTIVE DISCUSSION due on 2000 DTAP,TDAP,TD(2 - Td) due on 09/26/2020 DIABETES SCREEN due on 09/27/2022 BONE DENSITY Completed INFLUENZA Completed PNEUMOVAX AGE 65 AND OVER WITH 5YR LOOKBACK Completed MENINGOCOCCAL CONJUGATE Completed ASSESSMENT/PLAN: 1. Essential hypertension - ICD9: 401.9, ICD10: I10 (primary diagnosis) - normal BP reading in office today - Continue current medication(s) - Encouraged dietary sodium restriction/DASH diet - Recommended regular aerobic exercise. - Recommend home blood pressure monitoring, to b ring results in on next visit - Discussed need and benefit for weight loss. - Recheck in 6 months, sooner should new symptoms or problem s arise. - Goal of BP <140/90 - Continue to monitor BP at home. If readings continue to be greater than 140/90 let us know - Recommended no refined sugar, low refined star ch, healthy oil intake (olive oil), healthy protein (fish) along the lines of the [place] diet. 2. CKD (chronic kidney disea se) Stage 3, GFR 30-59 ml/min - ICD9: 585.3, ICD10: N18.3 - BMP (BMP) (FOR REMOTE [facility] USE) 3. Mixed hyperlipidemia - ICD9: 272.2, ICD10: E78.2 - recent blood work in December shows good control - Continue current medication. - Follow up in 6 months. - Encouraged following a low carbohydrate, healthy oil intak e diet. 4. Hypothyroidism, acquired - ICD9: 244.9, ICD10: E03.9 - Instructed patient on importance of taking on an empty stomach either first thing in the morning or at bedtime. - Follow up in 6 months 5. Paroxysmal atrial fibrillation (HCC) - ICD9: 427.31, ICD1 0: I48.0 - follow-up with cardiology as scheduled Yue Chang APRN.CONTROLS TECHNICIAN Prescription instructions reviewed with patient as applicable. Patient advised if symptoms do not improve or if symptoms worsen sooner, to contact their primary care physician. Potential red flag symptoms discusse d with the patient. Reviewed appropriate action plan to gabe e if red flag symptoms occur. Patient agreeable to treatment plan. Referring Provider: SELF [[id number]] Allergies As of Date: 04/27/2020 Noted Allergy Reaction DILTIAZEM 10/09/2016 11 - Vomiting Comments: During hospital stay 10/02 Date Reviewed: 04/27/2020 Reviewed by: Amisha Stone (Matilda) MATILDA Solis - Fully Assessed Primary Visit Diagnosis:Essential hypertension [I10] Other Visit Diagnoses:CKD (chronic kidney disease) Sta ge 3, GFR 30-59 ml/min [N18.3] Mixed hyperlipidemia [E78.2] Hypothyroidism, acquired [E03.9] Paroxysmal atrial fibrillation (HCC) [I48.0] Order(s):BMP (BMP) (FOR REMOTE [facility] USE) [SQRBMP] Order #: [id number] FUTURE Prescriptions as of 04/27/2020 Sig: HYDROCHLOROTHIAZIDE 50 MG TAB* Take 1 tablet by mouth once d * LOSARTAN 100 MG TABLET Take 1 tablet by mouth once d* LEVOTHYROXINE 100 MCG TABLET Take 1 tablet by mouth daily * METOPROLOL SUCCINATE ER 50 MG* Take 1 tablet by mouth once d * ALLOPURINOL 100 MG TABLET Take 1 tablet by mouth once d* ISOSORBIDE ORAL Take by mouth. CHOLECALCIFEROL (VITAMIN D3) * Take 1 capsule by mouth once * LEVOTHYROXINE 100 MCG TABLET TAKE 1 TABLET DAILY BEFORE BR* AMIODARONE 200 MG TABLET Take 1 tablet by mouth once d* ACETAMINOPHEN 500 MG TABLET Take 500 mg by mouth as neede* XARELTO ORAL Take 15 mg by mouth once karla* FERROUS SULFATE 325 MG (65 MG* Take 1 tablet by mouth twice * SIMVASTATIN 40 MG TABLET Take 1 tablet by mouth daily * FLUTICASONE PROPIONATE 50 MCG* Use 2 Sprays in each nostril * Patient not taking: Reported on 04/27/2020 Problem List As Of Date 04/27/2020 Noted Resolved Paroxysmal atrial fibrillation (HCC) [I48.0] 09/29/2015 More... Acquired hypothyroidism [E03.9] 09/29/2015 More... Mixed hyperlipidemia [E78.2] 09/29/2015 More... Essential hypertension [I10] 09/29/2015 More... Gastroesophageal reflux disease [K21.9] 09/29/2015 Vitamin D deficiency [E55.9] 09/29/2015 Primary osteoarthritis of right knee [M17.11] 09/29/2015 Left thigh pain [M79.652] 05/09/2016 Synovial cyst of lumbar facet joint [M71.38] 06/28/2016 Lumbar radiculopathy, chronic [M54.16] 06/28/2016 CKD (chronic kidney disease) Stage 3, GFR 30-59*02/21/2018 Iron deficiency anemia [D50.9] 06/12/2018 JOAN III (vulvar intraepithelial neoplasia III) * Gout [M10.9] Pain in left hip [M25.552] 02/06/2019 Follow-up and Disposition History Recorded Encounter Status:Closed by PODLOGYUE GAMEZ CNP on 04/27/20 obsolete on 2020-03 OBSOLETE Refill (FAMPWS) Normal 04-11-2020 [facility] ROSA BOWIE ([id number]) 1935 [facility] Time Provider Department ([id number]) 04/11/20 WILLAM CEJA) FAMPWS During your visit today, we recorded the following informati on about you: Allergies As of Date: 04/11/2020 Noted Allergy Reaction DILTIAZEM 10/09/2016 11 - Vomiting Comments: During hospital stay 10/02 Date Reviewed: 10/02/2019 Reviewed by: Sarah Hughes LPN - Fully Assessed Reason for Visit: Refill Request [94] Visit Diagnosis:Essential hypertension [I10] Prescriptions as of 04/11/2020 Sig: HYDROCHLOROTHIAZIDE 50 MG TAB* Take 1 tablet by mouth once d * LOSARTAN 100 MG TABLET Take 1 tablet by mouth once d* LEVOTHYROXINE 100 MCG TABLET Take 1 tablet by mouth daily * METOPROLOL SUCCINATE ER 50 MG* Take 1 tablet by mouth once d * ALLOPURINOL 100 MG TABLET Take 1 tablet by mouth once d* ISOSORBIDE ORAL Take by mouth. FERROUS SULFATE 325 MG (65 MG* Take 1 tablet by mouth twice * SIMVASTATIN 40 MG TABLET Take 1 tablet by mouth daily * FLUTICASONE PROPIONATE 50 MCG* Use 2 Sprays in each nostril * CHOLECALCIFEROL (VITAMIN D3) * Take 1 capsule by mouth once * LEVOTHYROXINE 100 MCG TABLET TAKE 1 TABLET DAILY BEFORE BR* AMIODARONE 200 MG TABLET Take 1 tablet by mouth once d* ACETAMINOPHEN 500 MG TABLET Take 500 mg by mouth as neede* XARELTO ORAL Take 15 mg by mouth once karla* Problem List As Of Date 04/11/2020 Noted Resolved Paroxysmal atrial fibrillation (HCC) [I48.0] 09/29/2015 More... Acquired hypothyroidism [E03.9] 09/29/2015 More... Mixed hyperlipidemia [E78.2] 09/29/2015 More... Essential hypertension [I10] 09/29/2015 More... Gastroesophageal reflux disease [K21.9] 09/29/2015 Vitamin D deficiency [E55.9] 09/29/2015 Primary osteoarthritis of right knee [M17.11] 09/29/2015 Left thigh pain [M79.652] 05/09/2016 Synovial cyst of lumbar facet joint [M71.38] 06/28/2016 Lumbar radiculopathy, chronic [M54.16] 06/28/2016 CKD (chronic kidney disease) Stage 3, GFR 30-59*02/21/2018 Iron deficiency anemia [D50.9] 06/12/2018 JOAN III (vulvar intraepithelial neoplasia III) * Gout [M10.9] Pain in left hip [M25.552] 02/06/2019 Encounter Status:Closed by BERNICE NASSAR on 04/11/20 obsolete on 2020-01 OBSOLETE Refill (FAMPWS) Normal 02-18-2020 [facility] ROSA BOWIE ([id number]) 1935 [facility] Date Time Provider Department ([id number]) 02/18/20 PODLOGARYUE (CONTROLS TECHNICIAN) DARAWS During your visit today, we recorded the following informati on about you: Sena Rachel Ma 02/18/2020 5:04 PM Signed Patient has been identified by name and date of : Yes Patient phones for refill(s): Pending Prescriptions Disp Refills LOSARTAN 100 MG-HYDROCHLOROTHIAZIDE 25 MG TABLET 90 tablet 1 Sig: Take 1 tablet by mouth once daily. SAVI: No Date of last office visit in primary care: 09/18/19 Last 2 Encounter Wt Readings: Date: Wt: 09/18/2019 92.1 kg (203 lb) 08/10/2019 91.5 kg (201 lb 12.8 oz) Previous labs/tests for medication: Blood Pressure: BUN (mg/dL) Date Value 09/28/2019 34 Sodium (mmol/L) Date Value 09/28/2019 139 Last 1 Encounter BP Readings: Date: BP: 10/02/2019 132/58[BP Stan average[ Please advise. Thank you. Sena Rachel Ma Allergies As of Date: 02/18/2020 Noted Allergy Reaction DILTIAZEM 10/09/2016 11 - Vomiting Comments: During hospital stay 10/02 Date Reviewed: 10/02/2019 Reviewed by: Sarah Hughes LPN - Fully Assessed Reason for Visit: Refill Request [94] Visit Diagnosis:Essential hypertension [I10] Order(s):losartan-hydrochlorothiazide (HYZAAR) 100-25 mg per tabletTake 1 tablet by mouth once daily.Disp: 90 tabletRfl: 1 Prescriptions as of 02/18/2020 Sig: LOSARTAN 100 MG-HYDROCHLOROTH* Take 1 tablet by mouth once d * LEVOTHYROXINE 100 MCG TABLET Take 1 tablet by mouth daily * METOPROLOL SUCCINATE ER 50 MG* Take 1 tablet by mouth once d * ALLOPURINOL 100 MG TABLET Take 1 tablet by mouth once d* HYDROCHLOROTHIAZIDE 25 MG TAB* Take 1 tablet by mouth once d * ISOSORBIDE ORAL Take by mouth. FERROUS SULFATE 325 MG (65 MG* Take 1 tablet by mouth twice * SIMVASTATIN 40 MG TABLET Take 1 tablet by mouth daily * FLUTICASONE PROPIONATE 50 MCG* Use 2 Sprays in each nostril * CHOLECALCIFEROL (VITAMIN D3) * Take 1 capsule by mouth once * LEVOTHYROXINE 100 MCG TABLET TAKE 1 TABLET DAILY BEFORE BR* AMIODARONE 200 MG TABLET Take 1 tablet by mouth once d* ACETAMINOPHEN 500 MG TABLET Take 500 mg by mouth as neede* XARELTO ORAL Take 15 mg by mouth once karla* Problem List As Of Date 02/18/2020 Noted Resolved Paroxysmal atrial fibrillation (HCC) [I48.0] 09/29/2015 More... Acquired hypothyroidism [E03.9] 09/29/2015 More... Mixed hyperlipidemia [E78.2] 09/29/2015 More... Essential hypertension [I10] 09/29/2015 More... Gastroesophageal reflux disease [K21.9] 09/29/2015 Vitamin D deficiency [E55.9] 09/29/2015 Primary osteoarthritis of right knee [M17.11] 09/29/2015 Left thigh pain [M79.652] 05/09/2016 Synovial cyst of lumbar facet joint [M71.38] 06/28/2016 Lumbar radiculopathy, chronic [M54.16] 06/28/2016 CKD (chronic kidney disease) Stage 3, GFR 30-59*02/21/2018 Iron deficiency anemia [D50.9] 06/12/2018 JOAN III (vulvar intraepithelial neoplasia III) * Gout [M10.9] Pain in left hip [M25.552] 02/06/2019 Prescriptions ordered this encounter Disp Refills Start End LOSARTAN 100 MG-HYDROCHLOROTHIAZIDE * 90 t* 1 02/19/2020 Route: ORAL Sig: Take 1 tablet by mouth once daily. Medications Discontinued During This Encounter losartan-hydrochlorothiazide (HYZAAR* 90 t* 1 07/08/201901/27 Route: ORAL Sig: Take 1 tablet by mouth once daily. Disc: Reason for discontinue is not on file. Encounter Status:Closed by WILLAM CEJA MD on 0 obsolete on 2019-12 OBSOLETE Refill (FAMPWS) Normal 01-04-2020 [facility] ROSA BOWIE ([id number]) 1935 [facility] Time Provider Department ([id number]) 01/04/20 WILLAM CEJA) FAMPWS During your visit today, we recorded the following informati on about you: Amisha Solis LPN, LPN 01/04/2020 9:26 AM Signed Patient has been identified by name and date of : Yes Pharmacy phones for refill(s): Pending Prescriptions Disp Refills METOPROLOL SUCCINATE ER 50 MG TABLET,EXTENDED RELEASE 24 HR 90 tablet 1 Sig: Take 1 tablet by mouth once daily. SAVI: No Date of last office visit in primary care:09/18/19Last 2 Encounter Wt Readings: Date: Wt: 09/18/2019 92.1 kg (203 lb) 08/10/2019 91.5 kg (201 lb 12.8 oz) Previous labs/tests for medication: Blood Pressure: BUN (mg/dL) Date Value 09/28/2019 34 Sodium (mmol/L) Date Value 09/28/2019 139 Last 1 Encounter BP Readings: Date: BP: 10/02/2019 132/58[BP Stan average[ Please advise. Thank you. Amisha Solis LPN Allergies As of Date: 01/04/2020 Noted Allergy Reaction DILTIAZEM 10/09/2016 11 - Vomiting Comments: During hospital stay 10/02 Date Reviewed: 10/02/2019 Reviewed by: Sarah Hughes LPN - Fully Assessed Reason for Visit: Refill Request [94] Visit Diagnosis:Essential hypertension [I10] Order(s):metoprolol succinate ER (TOPROL XL) 50 mg 24 hr tabletTake 1 tablet by mouth once daily.Disp: 90 tabletRfl: 1 Prescriptions as of 01/04/2020 Sig: METOPROLOL SUCCINATE ER 50 MG* Take 1 tablet by mouth once d * ALLOPURINOL 100 MG TABLET Take 1 tablet by mouth once d* HYDROCHLOROTHIAZIDE 25 MG TAB* Take 1 tablet by mouth once d * ISOSORBIDE ORAL Take by mouth. LOSARTAN 100 MG-HYDROCHLOROTH* Take 1 tablet by mouth once d * FERROUS SULFATE 325 MG (65 MG* Take 1 tablet by mouth twice * SIMVASTATIN 40 MG TABLET Take 1 tablet by mouth daily * FLUTICASONE PROPIONATE 50 MCG* Use 2 Sprays in each nostril * CHOLECALCIFEROL (VITAMIN D3) * Take 1 capsule by mouth once * LEVOTHYROXINE 100 MCG TABLET Take 1 tablet by mouth daily * LEVOTHYROXINE 100 MCG TABLET TAKE 1 TABLET DAILY BEFORE BR* AMIODARONE 200 MG TABLET Take 1 tablet by mouth once d* ACETAMINOPHEN 500 MG TABLET Take 500 mg by mouth as neede* XARELTO ORAL Take 15 mg by mouth once karla* Problem List As Of Date 01/04/2020 Noted Resolved Paroxysmal atrial fibrillation (HCC) [I48.0] 09/29/2015 More... Acquired hypothyroidism [E03.9] 09/29/2015 More... Mixed hyperlipidemia [E78.2] 09/29/2015 More... Essential hypertension [I10] 09/29/2015 More... 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 Medications Discontinued During This Encounter metoprolol succinate ER (TOPROL XL) * 90 t* 1 07/08/201901/03 Route: ORAL Sig: Take 1 tablet by mouth once daily. Disc: Reason for discontinue is not on file. Encounter Status:Closed by YUE CHANG CNP on 01/04/20 obsolete on 2019-11 OBSOLETE Refill (FAMPWS) Normal 12-22-2019 [facility] ROSA BOWIE ([id number]) 1935 [facility] Time Provider Department ([id number]) 12/22/19 WILLAM CEJA) FAMPWS During your visit today, we recorded the following informati on about you: Amisha Solis LPN, LPN 12/22/2019 10:08 AM Signed Patient has been identified by name and date of : Yes Pharmacy phones for refill(s): Pending Prescriptions Disp Refills ALLOPURINOL 100 MG TABLET 90 tablet 1 Sig: Take 1 tablet by mouth once daily. For gout. SAVI: No Date of last office visit in primary care: Date: W t: 09/18/2019 92.1 kg (203 lb) 08/10/2019 91.5 kg (201 lb 12.8 oz) Previous labs/tests for medication: Blood Pressure: BUN (mg/dL) Date Value 09/28/2019 34 Sodium (mmol/L) Date Value 09/28/2019 139 Last 1 Encounter BP Readings: Date: BP: 10/02/2019 132/58[BP Stan average[ Please advise. Thank you. Amisha Solis LPN Allergies As of Date: 12/22/2019 Noted Allergy Reaction DILTIAZEM 10/09/2016 11 - Vomiting Comments: During hospital stay 10/02 Date Reviewed: 10/02/2019 Reviewed by: Sarah Hughes LPN - Fully Assessed Reason for Visit: Refill Request [94] Order(s):allopurinol (ZYLOPRIM) 100 mg tabletTake 1 tablet b y mouth once daily. For gout.Disp: 90 tabletRfl: 1 Prescriptions as of 12/22/2019 Sig: ALLOPURINOL 100 MG TABLET Take 1 tablet by mouth once d* HYDROCHLOROTHIAZIDE 25 MG TAB* Take 1 tablet by mouth once d * ISOSORBIDE ORAL Take by mouth. METOPROLOL SUCCINATE ER 50 MG* Take 1 tablet by mouth once d * LOSARTAN 100 MG-HYDROCHLOROTH* Take 1 tablet by mouth once d * FERROUS SULFATE 325 MG (65 MG* Take 1 tablet by mouth twice * SIMVASTATIN 40 MG TABLET Take 1 tablet by mouth daily * FLUTICASONE PROPIONATE 50 MCG* Use 2 Sprays in each nostril * CHOLECALCIFEROL (VITAMIN D3) * Take 1 capsule by mouth once * LEVOTHYROXINE 100 MCG TABLET Take 1 tablet by mouth daily * LEVOTHYROXINE 100 MCG TABLET TAKE 1 TABLET DAILY BEFORE BR* AMIODARONE 200 MG TABLET Take 1 tablet by mouth once d* ACETAMINOPHEN 500 MG TABLET Take 500 mg by mouth as neede* XARELTO ORAL Take 15 mg by mouth once karla* Problem List As Of Date 12/22/2019 Noted Resolved Paroxysmal atrial fibrillation (HCC) [I48.0] 09/29/2015 More... Acquired hypothyroidism [E03.9] 09/29/2015 More... Mixed hyperlipidemia [E78.2] 09/29/2015 More... Essential hypertension [I10] 09/29/2015 More... Gastroesophageal reflux disease [K21.9] 09/29/2015 Vitamin D deficiency [E55.9] 09/29/2015 Primary osteoarthritis of right knee [M17.11] 09/29/2015 Left thigh pain [M79.652] 05/09/2016 Synovial cyst of lumbar facet joint [M71.38] 06/28/2016 Lumbar radiculopathy, chronic [M54.16] 06/28/2016 CKD (chronic kidney disease) Stage 3, GFR 30-59*02/21/2018 Iron deficiency anemia [D50.9] 06/12/2018 JOAN III (vulvar intraepithelial neoplasia III) * Gout [M10.9] Pain in left hip [M25.552] 02/06/2019 Prescriptions ordered this encounter Disp Refills Start End ALLOPURINOL 100 MG TABLET 90 t* 1 12/22/2019 Route: ORAL Sig: Take 1 tablet by mouth once daily. For gout. Medications Discontinued During This Encounter allopurinol (ZYLOPRIM) 100 mg tablet 90 t* 1 06/23/201912/21 Route: ORAL Sig: Take 1 tablet by mouth once daily. For gout. Disc: Reason for discontinue is not on file. Encounter Status:Closed by YUE CHANG CNP on 12/22/19 obsolete on 2019-11 OBSOLETE Refill (FAMPWS) Normal 12-04-2019 [facility] MICHAELROSA SALAZAR ([id number]) 1935 [facility] Time Provider Department ([id number]) 12/04/19 PODYUE PARKER (OLIVER) FAMPWS During your visit today, we recorded the following informati on about you: Nancy Andrade MA, MA 12/04/2019 10:22 AM Signed Last Refill:10/05/19 Qty:90 Refills:0 Next Scheduled Office Visit:02/08/20 Last Office Visit:09/18/19 Nancy Andrade MA Allergies As of Date: 12/04/2019 Noted Allergy Reaction DILTIAZEM 10/09/2016 11 - Vomiting Comments: During hospital stay 10/02 Date Reviewed: 10/02/2019 Reviewed by: Sarah Hughes LPN - Fully Assessed Reason for Visit: Refill Request [94] Visit Diagnosis:Essential hypertension [I10] Order(s):hydroCHLOROthiazide (HYDRODIURIL, ESIDR IX) 25 mg tabletTake 1 tablet by mouth once daily.Disp: 90 tabletRfl: 0 Prescriptions as of 12/04/2019 Sig: HYDROCHLOROTHIAZIDE 25 MG TAB* Take 1 tablet by mouth once d * ISOSORBIDE ORAL Take by mouth. METOPROLOL SUCCINATE ER 50 MG* Take 1 tablet by mouth once d * LOSARTAN 100 MG-HYDROCHLOROTH* Take 1 tablet by mouth once d * FERROUS SULFATE 325 MG (65 MG* Take 1 tablet by mouth twice * SIMVASTATIN 40 MG TABLET Take 1 tablet by mouth daily * ALLOPURINOL 100 MG TABLET Take 1 tablet by mouth once d* FLUTICASONE PROPIONATE 50 MCG* Use 2 Sprays in each nostril * CHOLECALCIFEROL (VITAMIN D3) * Take 1 capsule by mouth once * LEVOTHYROXINE 100 MCG TABLET Take 1 tablet by mouth daily * LEVOTHYROXINE 100 MCG TABLET TAKE 1 TABLET DAILY BEFORE BR* AMIODARONE 200 MG TABLET Take 1 tablet by mouth once d* ACETAMINOPHEN 500 MG TABLET Take 500 mg by mouth as neede* XARELTO ORAL Take 15 mg by mouth once karla* Problem List As Of Date 12/04/2019 Noted Resolved Paroxysmal atrial fibrillation (HCC) [I48.0] 09/29/2015 More... Acquired hypothyroidism [E03.9] 09/29/2015 More... Mixed hyperlipidemia [E78.2] 09/29/2015 More... Essential hypertension [I10] 09/29/2015 More... Gastroesophageal reflux disease [K21.9] 09/29/2015 Vitamin D deficiency [E55.9] 09/29/2015 Primary osteoarthritis of right knee [M17.11] 09/29/2015 Left thigh pain [M79.652] 05/09/2016 Synovial cyst of lumbar facet joint [M71.38] 06/28/2016 Lumbar radiculopathy, chronic [M54.16] 06/28/2016 CKD (chronic kidney disease) Stage 3, GFR 30-59*02/21/2018 Iron deficiency anemia [D50.9] 06/12/2018 JOAN III (vulvar intraepithelial neoplasia III) * Gout [M10.9] Pain in left hip [M25.552] 02/06/2019 Prescriptions ordered this encounter Disp Refills Start End HYDROCHLOROTHIAZIDE 25 MG TABLET 90 t* 0 12/04/2019 Route: ORAL Sig: Take 1 tablet by mouth once daily. Medications Discontinued During This Encounter hydroCHLOROthiazide (HYDRODIURIL, ES* 90 t* 0 10/05/2019 020 Route: ORAL Sig: Take 1 tablet by mouth once daily. Disc: Reason for discontinue is not on file. Encounter Status:Closed by WILLAM CEJA MD on 12/04/19 obsolete on 2019-09 OBSOLETE Refill (FAMPWS) Normal 10-03-2019 [facility] MICHAELROSA SALAZAR ([id number]) 1935 [facility] Time Provider Department ([id number]) 10/03/19 WILLAM CEJA () FAMPWS During your visit today, we recorded the following informati on about you: Mari Drake LPN 10/03/2019 8:54 AM Signed Pharmacy requesting a 90 day supply. Patient has been identified by name and date of : Yes Pharmacy phones for refill(s): Pending Prescriptions Disp Refills HYDROCHLOROTHIAZIDE 25 MG TABLET 90 tablet 0 Sig: Take 1 tablet by mouth once daily. SAVI: No Date of last office visit in primary care: 09/18/19 Last 2 Encounter Wt Readings: Date: Wt: 09/18/2019 92.1 kg (203 lb) 08/10/2019 91.5 kg (201 lb 12.8 oz) Previous labs/tests for medication: Not applicable Please advise. Thank you. Mari Drake LPN Allergies As of Date: 10/03/2019 Noted Allergy Reaction DILTIAZEM 10/09/2016 11 - Vomiting Comments: During hospital stay 10/02 Date Reviewed: 10/02/2019 Reviewed by: Sarah Hughes LPN - Fully Assessed Reason for Visit: Refill Request [94] Visit Diagnosis:Essential hypertension [I10] Order(s):hydroCHLOROthiazide (HYDRODIURIL, ESIDR IX) 25 mg tabletTake 1 tablet by mouth once daily.Disp: 90 tabletRfl: 0 Prescriptions as of 10/03/2019 Sig: HYDROCHLOROTHIAZIDE 25 MG TAB* Take 1 tablet by mouth once d * ISOSORBIDE ORAL Take by mouth. METOPROLOL SUCCINATE ER 50 MG* Take 1 tablet by mouth once d * LOSARTAN 100 MG-HYDROCHLOROTH* Take 1 tablet by mouth once d * FERROUS SULFATE 325 MG (65 MG* Take 1 tablet by mouth twice * SIMVASTATIN 40 MG TABLET Take 1 tablet by mouth daily * ALLOPURINOL 100 MG TABLET Take 1 tablet by mouth once d* FLUTICASONE PROPIONATE 50 MCG* Use 2 Sprays in each nostril * CHOLECALCIFEROL (VITAMIN D3) * Take 1 capsule by mouth once * LEVOTHYROXINE 100 MCG TABLET Take 1 tablet by mouth daily * LEVOTHYROXINE 100 MCG TABLET TAKE 1 TABLET DAILY BEFORE BR* AMIODARONE 200 MG TABLET Take 1 tablet by mouth once d* ACETAMINOPHEN 500 MG TABLET Take 500 mg by mouth as neede* XARELTO ORAL Take 15 mg by mouth once karla* Problem List As Of Date 10/03/2019 Noted Resolved Paroxysmal atrial fibrillation (HCC) [I48.0] 09/29/2015 More... Acquired hypothyroidism [E03.9] 09/29/2015 More... Mixed hyperlipidemia [E78.2] 09/29/2015 More... Essential hypertension [I10] 09/29/2015 More... Gastroesophageal reflux disease [K21.9] 09/29/2015 Vitamin D deficiency [E55.9] 09/29/2015 Primary osteoarthritis of right knee [M17.11] 09/29/2015 Left thigh pain [M79.652] 05/09/2016 Synovial cyst of lumbar facet joint [M71.38] 06/28/2016 Lumbar radiculopathy, chronic [M54.16] 06/28/2016 CKD (chronic kidney disease) Stage 3, GFR 30-59*02/21/2018 Iron deficiency anemia [D50.9] 06/12/2018 JOAN III (vulvar intraepithelial neoplasia III) * Gout [M10.9] Pain in left hip [M25.552] 02/06/2019 Prescriptions ordered this encounter Disp Refills Start End HYDROCHLOROTHIAZIDE 25 MG TABLET 90 t* 0 10/05/2019 Route: ORAL Sig: Take 1 tablet by mouth once daily. Medications Discontinued During This Encounter hydroCHLOROthiazide (HYDRODIURIL, ES* 30 t* 0 09/18/20192019 Route: ORAL Sig: Take 1 tablet by mouth once daily. Disc: Reason for discontinue is not on file. Encounter Status:Closed by PODLOGARYUE CNP on 10/05/19 progress on 2019-09 PROGRESS HNO ID: [id number] Normal 10-02-2019 [facility] Author: Sarah Hughes LPN [place] ([id number]) Service: ? Author Type: ? Type: Progress Notes Filed: 10/02/2019 11:32 AM Note Text: Manual Readin/70 Pulse: 56 BP Stan average: 132/58 P: 55 Repeat BP Check: 150/63 P56 #1 150/67 P57 #2 127/58 P56 #3 135/57 P54 #4 133/54 P55 #5 117/56 P54 #6 Reason for blood pressure check - Last BP elevated and Medic ation adjustment Patient is: Taking medication as prescribed Yes Took medication today Yes If no, date medication last taken N/A Experiencing side effects No BP was elevated at last appt 09/18/2019. HCTZ was increased t o 25mg daily. Tolerating medication change well. Home readings have ranged 114-205/62-115 9did not bring home monitor today; also does not sit for very long before taking). Denies any chest pain, shortness o f breath, dizziness, or headaches. Daily caffeine use. Past personal h istory of tobacco use; no current exposure. Alert and oriented. Pt has been identified by name and birthdate: Yes Allergies reviewed: Yes Latex allergy: no. Medication - prescribed and OTC reviewed and updated: Yes Do you need any prescription refills prior to your next visi t: No Health Maintenance: Reviewed and not up to date and provider notified Patient advised that she would be contacted after review by PCP. Sarah kolb on 2019-10-02 [facility] Telephone (FAMPWS) Normal 10-02-2019 [facility] ROSA BOWIE ([id number]) 1935 [address] [place] Date Time Provider Department ([id number]) 10/02/19 WILLAM CEJA) DARAWS During your visit today, we recorded the following informati on about you: Sarah Hughes LPN 10/02/2019 11:32 AM Signed Manual Readin/70 Pulse: 56 BP Stan average: 132/58 P: 55 Repeat BP Check: 150/63 P56 #1 150/67 P57 #2 127/58 P56 #3 135/57 P54 #4 133/54 P55 #5 117/56 P54 #6 Reason for blood pressure check - Last BP elevated and Medication adjustment Patient is: Taking medication as prescribed Yes Took medication today Yes If no, date medication last taken N/A Experiencing side effects No BP was elevated at last appt 09/18/2019. HCTZ was increased t o 25mg daily. Tolerating medication change well. Home readings have rang ed 114-205/62-115 9did not bring home monitor today; also does not sit for yasmin y long before taking). Denies any chest pain, shortness of sunil ath, dizziness, or headaches. Daily caffeine use. Past personal histor y of tobacco use; no current exposure. Alert and oriented. Pt has been identified by name and birthdate: Yes Allergies reviewed: Yes Latex allergy: no. Medication - prescribed and OTC reviewed and updated: Yes Do you need any prescription refills prior to your next visi t: No Health Maintenance: Reviewed and not up to date and provider notified Patient advised that she would be contacted after review by PCP. Sarah Chang, KARIN.CONTROLS TECHNICIAN 10/02/2019 11:36 AM Signed BP stan average good. Continue current medication s. Recommend taking BP once a day, first thing in the morning after emptying bladder . Should be sitting in chair with feet flat on the floor. Also take if having sympt oms of visual change, dizziness, lightheadedness, or headaches. Notify off ice if getting consistent readings of 150/90. Thanks, Yue Chang, SILVERSMITH APPRENTICE.OLIVER Solis LPN, MATILDA 10/02/2019 11:40 AM Signed Message left via my chart. Allergies As of Date: 10/02/2019 Noted Allergy Reaction DILTIAZEM 10/09/2016 11 - Vomiting Comments: During hospital stay 10/02 Date Reviewed: 10/02/2019 Reviewed by: Sarah Hughes LPN - Fully Assessed Reason for Visit: Blood Pressure Check [195] Prescriptions as of 10/02/2019 Sig: ISOSORBIDE ORAL Take by mouth. HYDROCHLOROTHIAZIDE 25 MG TAB* Take 1 tablet by mouth once d * METOPROLOL SUCCINATE ER 50 MG* Take 1 tablet by mouth once d * LOSARTAN 100 MG-HYDROCHLOROTH* Take 1 tablet by mouth once d * FERROUS SULFATE 325 MG (65 MG* Take 1 tablet by mouth twice * SIMVASTATIN 40 MG TABLET Take 1 tablet by mouth daily * ALLOPURINOL 100 MG TABLET Take 1 tablet by mouth once d* FLUTICASONE PROPIONATE 50 MCG* Use 2 Sprays in each nostril * CHOLECALCIFEROL (VITAMIN D3) * Take 1 capsule by mouth once * LEVOTHYROXINE 100 MCG TABLET Take 1 tablet by mouth daily * LEVOTHYROXINE 100 MCG TABLET TAKE 1 TABLET DAILY BEFORE BR* AMIODARONE 200 MG TABLET Take 1 tablet by mouth once d* ACETAMINOPHEN 500 MG TABLET Take 500 mg by mouth as neede* XARELTO ORAL Take 15 mg by mouth once karla* Problem List As Of Date 10/02/2019 Noted Resolved Paroxysmal atrial fibrillation (HCC) [I48.0] 09/29/2015 More... Acquired hypothyroidism [E03.9] 09/29/2015 More... Mixed hyperlipidemia [E78.2] 09/29/2015 More... Essential hypertension [I10] 09/29/2015 More... Gastroesophageal reflux disease [K21.9] 09/29/2015 Vitamin D deficiency [E55.9] 09/29/2015 Primary osteoarthritis of right knee [M17.11] 09/29/2015 Left thigh pain [M79.652] 05/09/2016 Synovial cyst of lumbar facet joint [M71.38] 06/28/2016 Lumbar radiculopathy, chronic [M54.16] 06/28/2016 CKD (chronic kidney disease) Stage 3, GFR 30-59*02/21/2018 Iron deficiency anemia [D50.9] 06/12/2018 JOAN III (vulvar intraepithelial neoplasia III) * Gout [M10.9] Pain in left hip [M25.552] 02/06/2019 Encounter Status:Closed by AMISHA SOLIS LPN on 10/02/19 cnnurse on [facility] Nurse Visit (FAMPWS) Normal 0 [place] [facility] ROSA BOWIE ([id number]) 1935 [address] [place] Date Time Provider Department ([id number]) 10/02/19 11:15 [facility] During your visit today, we recorded the following informati on about you: Pulse Blood pressure 55/minute 132/58 Sarah Hughes LPN 10/02/2019 11:32 AM Signed Manual Readin/70 Pulse: 56 BP Stan average: 132/58 P: 55 Repeat BP Check: 150/63 P56 #1 150/67 P57 #2 127/58 P56 #3 135/57 P54 #4 133/54 P55 #5 117/56 P54 #6 Reason for blood pressure check - Last BP elevated and Medication adjustment Patient is: Taking medication as prescribed Yes Took medication today Yes If no, date medication last taken N/A Experiencing side effects No BP was elevated at last appt 09/18/2019. HCTZ was increased t o 25mg daily. Tolerating medication change well. Home readings have rang ed 114-205/62-115 9did not bring home monitor today; also does not sit for yasmin y long before taking). Denies any chest pain, shortness of sunil ath, dizziness, or headaches. Daily caffeine use. Past personal histor y of tobacco use; no current exposure. Alert and oriented. Pt has been identified by name and birthdate: Yes Allergies reviewed: Yes Latex allergy: no. Medication - prescribed and OTC reviewed and updated: Yes Do you need any prescription refills prior to your next visi t: No Health Maintenance: Reviewed and not up to date and provider notified Patient advised that she would be contacted after review by PCP. Sarah Hughes LPN Referring Provider: WILLAM CEJA) [[id number]] Allergies As of Date: 10/02/2019 Noted Allergy Reaction DILTIAZEM 10/09/2016 11 - Vomiting Comments: During hospital stay 10/02 Date Reviewed: 10/02/2019 Reviewed by: Sarah Hguhes LPN - Fully Assessed Reason for Visit: Blood Pressure Check [195] Primary Visit Diagnosis:Essential hypertension [I10] Prescriptions as of 10/02/2019 Sig: ISOSORBIDE ORAL Take by mouth. HYDROCHLOROTHIAZIDE 25 MG TAB* Take 1 tablet by mouth once d * METOPROLOL SUCCINATE ER 50 MG* Take 1 tablet by mouth once d * LOSARTAN 100 MG-HYDROCHLOROTH* Take 1 tablet by mouth once d * SIMVASTATIN 40 MG TABLET Take 1 tablet by mouth daily * ALLOPURINOL 100 MG TABLET Take 1 tablet by mouth once d* FLUTICASONE PROPIONATE 50 MCG* Use 2 Sprays in each nostril * CHOLECALCIFEROL (VITAMIN D3) * Take 1 capsule by mouth once * LEVOTHYROXINE 100 MCG TABLET Take 1 tablet by mouth daily * LEVOTHYROXINE 100 MCG TABLET TAKE 1 TABLET DAILY BEFORE BR* AMIODARONE 200 MG TABLET Take 1 tablet by mouth once d* ACETAMINOPHEN 500 MG TABLET Take 500 mg by mouth as neede* XARELTO ORAL Take 15 mg by mouth once karla* FERROUS SULFATE 325 MG (65 MG* Take 1 tablet by mouth twice * Problem List As Of Date 10/02/2019 Noted Resolved Paroxysmal atrial fibrillation (HCC) [I48.0] 09/29/2015 More... Acquired hypothyroidism [E03.9] 09/29/2015 More... Mixed hyperlipidemia [E78.2] 09/29/2015 More... Essential hypertension [I10] 09/29/2015 More... Gastroesophageal reflux disease [K21.9] 09/29/2015 Vitamin D deficiency [E55.9] 09/29/2015 Primary osteoarthritis of right knee [M17.11] 09/29/2015 Left thigh pain [M79.652] 05/09/2016 Synovial cyst of lumbar facet joint [M71.38] 06/28/2016 Lumbar radiculopathy, chronic [M54.16] 06/28/2016 CKD (chronic kidney disease) Stage 3, GFR 30-59*02/21/2018 Iron deficiency anemia [D50.9] 06/12/2018 JOAN III (vulvar intraepithelial neoplasia III) * Gout [M10.9] Pain in left hip [M25.552] 02/06/2019 Encounter Status:Closed by SARAH HUGHES LPN [facility]) Normal 10-01-2019 [facility] ROSA BOWIE ([id number]) 1935 [address] [place] Date Time Provider Department ([id number]) 10/01/19 WILLAM CEJA) [facility] During your visit today, we recorded the following informati on about you: Amisha Solis LPN, MATILDA 10/01/2019 11:42 AM Signed ----- Message from Willam Woodard) Brenna sent at 2019 11:05 AM EST ----- Labs unremarkable/stable. Continue current regimen. F/u as s cheduled. Amisha Solis LPN, LPN 10/01/2019 11:44 AM Signed Message sent via my chart. Allergies As of Date: 10/01/2019 Noted Allergy Reaction DILTIAZEM 10/09/2016 11 - Vomiting Comments: During hospital stay 10/02 Date Reviewed: 09/18/2019 Reviewed by: Perri Bal Ma - Fully Assessed Reason for Visit: Results [95] Prescriptions as of 10/01/2019 Sig: ISOSORBIDE ORAL Take by mouth. HYDROCHLOROTHIAZIDE 25 MG TAB* Take 1 tablet by mouth once d * METOPROLOL SUCCINATE ER 50 MG* Take 1 tablet by mouth once d * LOSARTAN 100 MG-HYDROCHLOROTH* Take 1 tablet by mouth once d * FERROUS SULFATE 325 MG (65 MG* Take 1 tablet by mouth twice * SIMVASTATIN 40 MG TABLET Take 1 tablet by mouth daily * ALLOPURINOL 100 MG TABLET Take 1 tablet by mouth once d* FLUTICASONE PROPIONATE 50 MCG* Use 2 Sprays in each nostril * CHOLECALCIFEROL (VITAMIN D3) * Take 1 capsule by mouth once * LEVOTHYROXINE 100 MCG TABLET Take 1 tablet by mouth daily * LEVOTHYROXINE 100 MCG TABLET TAKE 1 TABLET DAILY BEFORE BR* AMIODARONE 200 MG TABLET Take 1 tablet by mouth once d* ACETAMINOPHEN 500 MG TABLET Take 500 mg by mouth as neede* XARELTO ORAL Take 15 mg by mouth once karla* Problem List As Of Date 10/01/2019 Noted Resolved Paroxysmal atrial fibrillation (HCC) [I48.0] 09/29/2015 More... Acquired hypothyroidism [E03.9] 09/29/2015 More... Mixed hyperlipidemia [E78.2] 09/29/2015 More... Essential hypertension [I10] 09/29/2015 More... Gastroesophageal reflux disease [K21.9] 09/29/2015 Vitamin D deficiency [E55.9] 09/29/2015 Primary osteoarthritis of right knee [M17.11] 09/29/2015 Left thigh pain [M79.652] 05/09/2016 Synovial cyst of lumbar facet joint [M71.38] 06/28/2016 Lumbar radiculopathy, chronic [M54.16] 06/28/2016 CKD (chronic kidney disease) Stage 3, GFR 30-59*02/21/2018 Iron deficiency anemia [D50.9] 06/12/2018 JOAN III (vulvar intraepithelial neoplasia III) * Gout [M10.9] Pain in left hip [M25.552] 02/06/2019 Encounter Status:Closed by AMISHA SOLIS LPN on 10/01/19 urinalysis with microscopic on 2019-09-28 Bilirubin, Urine Negative Negative Normal 09-28-2019 [facility] ([id number]) Comment: Performed By: #### UAWMIC ## ##[facility] [address] [place], [place] [id number]- [phone] Clarity (U) Clear Clear Normal 09-28-2019 [facility] ([id number]) Comment: Performed By: #### UAWMIC ## ##[facility] [address] [place], [place] [id number]- [phone] Color (U) Yellow Yellow Normal 09-28-2019 [facility] (95197) Comment: Performed By: #### UAWMIC ## ##[facility] [place], [place] [id number]- [phone] Comments SEE COMMENT Normal 09-28-2019 [facility] (02105) Comment: Result Comment: N/A Performed By: #### UAWMIC ## ##[place] [address] [place] [id number]- [phone] Epithelial cells LM.HPF SEE COMMENT Normal [facility] (Urine sed) [#/Area] [place] (41226) Comment: Result Comment: Few Squamous Epithelial Cells Few Non-Squamous Epithelial Cell s Performed By: #### UAWMIC ## ##[place] [address] [place], [place] [phone]- [phone] Glucose Ql (U) Negative Negative Normal 09-28-2019 [facility] (18243) Comment: Performed By: #### UAWMIC ## ##[facility] [place] [id number]- [phone] Hemoglobin/Blood,Ur Negative Negative Normal 09-28-2019 [facility] (34597) Comment: Performed By: #### UAWMIC ## ##[place] [address] [place] [id number]- [phone] Ketones Ql (U) Negative Negative Normal 09-28-2019 [facility] (13560) Comment: Performed By: #### UAWMIC ## ##[facility], [place] [phone]- [phone] Leukest Trace Negative Critically abnormal 09-28-2019 [facility] (95421) Comment: Performed By: #### UAWMIC ## ##[facility], [place] [phone]- [phone] Nitrite Ql (U) Negative Negative Normal 09-28-2019 [facility] (54811) Comment: Performed By: #### UAWMIC ## ##[place] [address], [place] [phone]- [phone] pH (Bld) 6.0 4.5-8.0 Normal 09-28-2019 [facility] (87230) Comment: Performed By: #### UAWMIC ## ##[place] [address], [place] [phone]- [phone] Protein (U) [Mass/Vol] Negative Negative mg/dL Normal [facility] (44176) Comment: Performed By: #### UAWMIC ## ##[place] [address] [place], [place] [phone] RBC (U) [#/Vol] 0-3 0-3 Normal 09-28-[address] [facility] (10483) Comment: Performed By: #### UAWMIC ## ##[place] [address] [place], [place] [id number]- [phone] Specific Harvey, Ur 1.020 1.005-1.030 Normal 020 [facility] (63555) Comment: Performed By: #### UAWMIC ## ##[place] [address] [place], [place] [id number]- [phone] Urine Greg Comment SEE COMMENT Normal 09-28-2019 [facility] (82741) Comment: Result Comment: Interpret re sults with caution. Urine preservative tube not filled to the required volum e. The BD Vacutainer Urinalysis preservative Plus tube must be filled wit h at least 7 mL and not more than 9 mL of urine in order to maintain the pro per additive to urine ratio. Performed By: #### UAWMIC ## ##[place] [address] [place], [place] [phone]- [phone] Urobilinogen Qn (U) Normal Normal Normal 09-28-2019 [facility] (44778) Comment: Performed By: #### UAWMIC ## ##[place] [address], [place] [phone]- [phone] WBC (Bld) [#/Vol] 0-5 0-5 Normal 09-28-2019 C [facility] (24281) Comment: Performed By: #### UAWMIC ## ##[facility] [place], [place] [phone]- [phone] tsh on 2019-09-28 TSH Qn 2.420 0.270-4.200 uU/mL Normal 09-28-2019 [facility] (09364) Comment: Performed By: #### CBC, CMP, LIPNF, TSH ####[address] [phone] lipid panel, nonfast on 2019-09-28 Cholesterol [Mass/Vol] 168 <200 mg/dL Normal 020 [facility] (35970) Comment: Result Comment: <200 mg/dL, Desirable 200-239 mg/dL, Borderline hi gh >239 mg/dL, High Performed By: #### CBC, CMP, LIPNF, TSH #### [facility] [address] [place], [place] [address] Cholesterol in 0.46 <2.54 mg/dL Normal 09-28-2019 [facility] LDL/Cholesterol in HDL [Mass [place] (01388) ratio] Comment: Result Comment: Reference: 1. National Cholesterol Educ ation Program ATP III Guideline At-A-Glance Quick Desk Reference: National Heart, Lung, and Blood Silva. National Institutes of Health. 2001: NIH Publication No. 01-3305. 2. An International Atherosc lerosis Society position paper: global recommendations for the management of dyslipidemia: executive summary, Atherosclerosis. 2014: 232(2):410-413. Performed By: #### CBC, CMP, LIPNF, TSH #### [facility] [address] [place], [place] [address] Cholesterol.total/Cholesterol in 1.62 <5.10 mg/dL Normal 09-28-2019 [place] HDL [Mass ratio] Cli jodie Sanchez (40991) Comment: Performed By: #### CBC, CMP, LIPNF, TSH #### [facility] [address] [place], [place] [address] HDL Cholesterol, NF 104 >39 mg/dL Normal 09-28-2019 [facility] (92881) Comment: Result Comment: 40-59 mg/dL, Acceptable >59 mg/dL, High: Negative ri sk factor for coronary heart disease <40 mg/dL, Low: Positive ris k factor for coronary heart disease Performed By: #### CBC, CMP, LIPNF, TSH #### [facility] [address] [place], [place] [address] LDL Cholesterol, NF 48 <100 mg/dL Normal 09-28-2019 [facility] (75590) Comment: Result Comment: <100 mg/dL, Optimal 100-129 mg/dL, Near optimal/ above optimal 130-159 mg/dL, Borderline hi gh 160-189 mg/dL, High >189 mg/dL, Very high Secondary prevention optimal LDL Cholesterol levels are recommended to be < 70 mg/dL Performed By: #### CBC, CMP, LIPNF, TSH #### [facility] [address] [place], [place] [address] Non HDL Chol, NF 64 <130 mg/dL Normal 09-28-2019 [facility] (15258) Comment: Result Comment: <130 mg/dL, Optimal 130-159 mg/dL, Near optimal/ above optimal 160-189 mg/dL, Borderline hi gh 190-219 mg/dL, High >219 mg/dL, Very high Secondary prevention optimal non HDL Cholesterol levels are recommended to be < 100 mg/dL Performed By: #### CBC, CMP, LIPNF, TSH #### [facility] [address] [place], [place] [address] Triglycerides, NF 79 <150 mg/dL Normal 09-28-2019 [facility] (31954) Comment: Result Comment: <150 mg/dL, Normal 150-199 mg/dL, Borderline hi gh 200-499 mg/dL, High >499 mg/dL, Very high Performed By: #### CBC, CMP, LIPNF, TSH #### [facility] [address] [place], [place] [address] VLDL Cholesterol, NF 16 <30 mg/dL Normal 0 [facility] (83666) Comment: Performed By: #### CBC, CMP, LIPNF, TSH #### [facility] [address] [place] [address] comp metabolic panel on 2019-09-28 Albumin [Mass/Vol] 4.3 3.9-4.9 g/dL Normal 09-28-2019 [facility] (61710) Comment: Performed By: #### CBC, CMP, LIPNF, TSH #### [facility] [address] [place] [address] ALP [Catalytic activity/Vol] 82 34-123 U/L Normal 0 09-28-2019 [facility] (35703) Comment: Performed By: #### CBC, CMP, LIPNF, TSH #### [facility] [address] [place] [address] ALT [Catalytic activity/Vol] 37 7-38 U/L Normal 0 09-28-2019 [facility] (81975) Comment: Performed By: #### CBC, CMP, LIPNF, TSH #### [facility] [place], [place] [address] Anion gap [Moles/Vol] 13 9-18 mmol/L Normal 09-28-19 20 [facility] (47839) Comment: Performed By: #### CBC, CMP, LIPNF, TSH #### [facility] [place], [place] [address] AST [Catalytic activity/Vol] 44 13-35 U/L High 0 09-28-2019 [facility] (01002) Comment: Performed By: #### CBC, CMP, LIPNF, TSH #### [facility] [address] [place], [place] [address] Bilirubin [Mass/Vol] 0.3 0.2-1.3 mg/dL Normal 0 [facility] (76911) Comment: Performed By: #### CBC, CMP, LIPNF, TSH #### [facility] [address] [place], [place] [address] Calcium [Mass/Vol] 10.3 8.5-10.2 mg/dL High 09-28-2019 [facility] (58551) Comment: Performed By: #### CBC, CMP, LIPNF, TSH #### [facility] [address] [place], [place] [address] Chloride [Moles/Vol] 100 97-105 mmol/L Normal 0 [facility] (69094) Comment: Performed By: #### CBC, CMP, LIPNF, TSH #### [facility] [address] [place], [place] [address] CO2 [Moles/Vol] 26 22-30 mmol/L Normal 09-28-[address] [facility] (40397) Comment: Performed By: #### CBC, CMP, LIPNF, TSH #### [facility] [address] [place], [place] [address] Creatinine [Mass/Vol] 1.30 0.58-0.96 mg/dL High 09-28-19 20 [facility] (54143) Comment: Performed By: #### CBC, CMP, LIPNF, TSH #### [facility] [address] [place], [place] [address] eGFR- Amer. 47 Normal 09-28-2019 [facility] (21600) Comment: Performed By: #### CBC, CMP, LIPNF, TSH #### [facility] [address] [place], [place] [address] GFR/1.73 sq M predicted among 39 . Normal 09-28-2019 [facility] non-blacks MDRD (S/P/Bld) [Vol (42960) rate/Area] Comment: Result Comment: eGFR (Estima lucretia GFR) Units of measure: mL/min/1.73 meters squared eGFR is derived from the ree xpressed MDRD Study equation using the following parameters: serum creatinine, age, gender and race. The creatinine assay has been calibrated to be traceable to IDMS. An eGFR <60 mL/min/1.73m2 fo r >3 months is consistent with chronic kidney disease. Refer to KDOQI guidelines for clinical interpretation. In patients with unstable re nal function, e.g. those with acute kidney injury, the eGFR may not accurately reflect actual GFR. Performed By: #### CBC, CMP, LIPNF, TSH #### [facility] [place] [address] [place], [place] [address] Glucose [Mass/Vol] 91 74-99 mg/dL Normal 09-28-2019 [facility] (74889) Comment: Result Comment: The [place] Diabetes Association (ADA) provides guidance for cutoff values for fasting glucose and random glucose. The ADA defines fasting as no caloric intake for at least 8 hours. Fas ting plasma glucose results between 100 to 125 mg/dL indicate increased risk for diabetes (prediabetes). Fasting plasma glucose resul ts greater than or equal to 126 mg/dL meet the criteria for diagnosis of diabetes. In the absence of unequivocal hyperglycemia, results should be confirmed by repeat testing. In a patient with classic s ymptoms of hyperglycemia or hyperglycemic crisis, random plasma glucose results greater than or equal to 200 mg/dL meet the criteria for diagnosis of diabetes. Reference: Standards of [facility] Care in Diabetes 2016, [place] Diabetes Association. Diabetes Care. 2016.39(Suppl 1). Performed By: #### CBC, CMP, LIPNF, TSH #### [facility] [address] [place], [place] [address] Potassium [Moles/Vol] 3.9 3.7-5.1 mmol/L Normal 09-28-19 [facility] (27933) Comment: Performed By: #### CBC, CMP, LIPNF, TSH #### [facility] [address] [place], [place] [id number] Protein [Mass/Vol] 6.9 6.3-8.0 g/dL Normal 09-28-2019 [facility] (44339) Comment: Performed By: #### CBC, CMP, LIPNF, TSH #### [facility] [address] [place], [place] [address] Sodium [Moles/Vol] 139 136-144 mmol/L Normal 09-28-2019 [facility] (00050) Comment: Performed By: #### CBC, CMP, LIPNF, TSH #### [facility] [address] [place], [place] [address] Urea nitrogen [Mass/Vol] 34 7-21 mg/dL High 09-27 [facility] (92352) Comment: Performed By: #### CBC, CMP, LIPNF, TSH #### [address] [address] cbc on 2019-09-28 Absolute nRBC <0.01 <0.01 Normal 09-28-2019 [facility] (31299) Comment: Performed By: #### CBC, CMP, LIPNF, TSH #### [facility] [address] [place], [place] [address] Erythrocyte distribution 14.8 11.5-15.0 % Normal 09-27 [facility] width (RBC) [Ratio] [place] (03988) Comment: Performed By: #### CBC, CMP, LIPNF, TSH #### [facility] [address] [place], [place] [address] Hematocrit (Bld) [Volume 42.6 36.0-46.0 % Normal 09-27 [facility] fraction] [place] (86769) Comment: Performed By: #### CBC, CMP, LIPNF, TSH #### [facility] [address] [place], [place] [address] Hemoglobin (Bld) 13.7 11.5-15.5 g/dL Normal 09-28-2019 [facility] [Mass/Vol] [place] (45241) Comment: Performed By: #### CBC, CMP, LIPNF, TSH #### [facility] [address] [place] [address] MCH (RBC) [Entitic mass] 29.0 26.0-34.0 pG Normal 09-27 [facility] (23486) Comment: Performed By: #### CBC, CMP, LIPNF, TSH #### [facility] [place] [address] MCHC (RBC) [Mass/Vol] 32.2 30.5-36.0 g/dL Normal 09-28-19 20 [facility] (64395) Comment: Performed By: #### CBC, CMP, LIPNF, TSH #### [facility] [address] [place] [address] MCV (RBC) [Entitic vol] 90.1 80.0-100.0 fL Normal 09-27 [facility] (78906) Comment: Performed By: #### CBC, CMP, LIPNF, TSH #### [place] [address] Platelet mean volume 11.2 9.0-12.7 fL Normal 0 [facility] (Bld) [Entitic vol] [place] (62119) Comment: Performed By: #### CBC, CMP, LIPNF, TSH #### [facility] [address] [place] [address] Platelets (Bld) [#/Vol] 197 150-400 k/uL Normal 2019 [facility] (83394) Comment: Performed By: #### CBC, CMP, LIPNF, TSH #### [facility] [address] [place] [address] RBC (Bld) [#/Vol] 4.73 3.90-5.20 m/uL Normal 09-28-2019 C [facility] (67779) Comment: Performed By: #### CBC, CMP, LIPNF, TSH #### [facility] [address] [place], [place] [address] WBC (Bld) [#/Vol] 6.55 3.70-11.00 k/uL Normal 09-28-2019 [facility] (73834) Comment: Performed By: #### CBC, CMP, LIPNF, TSH #### [facility] [address] [place], [place] [address] progress on 2019-08 PROGRESS HNO ID: [id number] Normal 09-18-2019 [facility] Author: Willam Woodard) [facility] ([id number]) Service: ? Author Type: Physician Type: Progress Notes Filed: 09/18/2019 3:01 PM Note Text: Chief Complaint Patient presents with: Blood Pressure This Team Access Model visit is a walk in encounter. It requ ired patient-provider interaction for the medical decision making as documented below. HPI Rosa Bowie is a 84 year old female who presents here today f or Above Complaints. Patient has been having elevated BPs in the morning with clive dings typically in the 150-170/80 range. Last night BP was as high as 205/115. Patient's face felt hot and turned red, but denied headache, vision changes, chest pain, SOB, leg swelling, nausea, vomiting. No change in her diet. Does not eat much salt. Taking medications faithfully. Past medical history, appointments, medications, allergies r eviewed. Previous Medical History PAST MEDICAL HISTORY Diagnosis Date - Basal cell carcinoma Dr. 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 Mancini cardiology - SCC (squamous cell carcinoma) face, right leg - Skin cancer - JOAN III (vulvar intraepithelial neoplasia III) - Vitamin D deficiency Previous Surgical History PAST SURGICAL HISTORY Procedure Laterality Date - APPENDECTOMY - CARDIAC CATH 09/2015 [facility], see scanned doc. - DELIVERY ONLY x3 - HYSTERECTOMY HX - OTHER skin cancer face leg - OTHER blocked bowel - PAST SURGICAL HISTORY OF 2016 lower spine cyst removal - PAST SURGICAL HISTORY OF 11/2018 squamous cell carcinoma removal from left face - TOTAL KNEE REPLACEMENT Right - VULVECTOMY RAD ING/FEM NODE [facility]. Family History FAMILY HISTORY Problem Relation Age of Onset - None Mother - other (Other) Father ulcer - Heart Sister - Heart Brother - Heart Brother - Cancer Daughter lung, brain Patient Allergies ALLERGIES Allergen Reactions - Diltiazem Vomiting During hospital stay 10/02 Current Medications Current Outpatient Medications on File Prior to Visit Medication Sig - ISOSORBIDE ORAL Take by mouth. - metoprolol succinate ER (TOPROL XL) 50 mg 24 hr tablet Gabe e 1 tablet by mouth once daily. - losartan-hydrochlorothiazide (HYZAAR) 100-25 mg per tablet Take 1 tablet by mouth once daily. - Hydrochlorothiazide 12.5 mg capsule Take 1 capsule by mout h once daily. - allopurinol (ZYLOPRIM) 100 mg tablet Take 1 tablet by mout h once daily. For gout. - fluticasone (FLONASE) 50 mcg/actuation nasal spray Use 2 S prays in each nostril once daily. Rinse mouth after use. - Cholecalciferol, Vitamin D3, (VITAMIN D-3) 2,000 unit cap Take 1 capsule by mouth once daily. - levothyroxine (SYNTHROID) 100 mcg tablet Take 1 tablet by mouth daily before breakfast. - levothyroxine (SYNTHROID) 100 mcg tablet TAKE 1 TABLET EZIO LY BEFORE BREAKFAST - amiodarone (CORDARONE) 200 mg tablet Take 1 tablet by mout h once daily. Two tablets by mouth twice daily for 2 days then 1 tablet by mouth daily started January 10, 2017 - acetaminophen (TYLENOL EXTRA STRENGTH) 500 mg tablet Take 500 mg by mouth as needed. - RIVAROXABAN (XARELTO ORAL) Take 15 mg by mouth once daily. - ferrous sulfate 325 mg (65 mg iron) tablet Take 1 tablet b y mouth twice daily with meals. - simvastatin (ZOCOR) 40 mg tablet Take 1 tablet by mouth da zaida at bedtime. No current facility-administered medications on file prior t o visit. Social History Social History Tobacco Use - Smoking status: Former Smoker Packs/day: 2.00 Years: 20.00 Pack years: 40.00 Types: Cigarettes Last attempt to quit: 12/26/1977 Years since quittin.7 - Smokeless tobacco: Never Used Substance Use Topics - Alcohol use: Yes Alcohol/week: 17.5 standard drinks Types: 7 Glasses of Wine (5oz) per week Frequency: Never - Drug use: No Review of Symptoms REVIEW OF SYSTEMS See HPI EXAM: BP 162/84 Pulse 67 Temp 36.1 ?C (97 ?F) (Left Tympanic) Resp 16 Wt 92.1 kg (203 lb) BMI 33.78 kg/m? General Appearance: Well appearing, alert, in no acute distr ess, well-hydrated, well nourished.. Skin: Skin color, texture, turgor normal, no suspicious rash es or lesions. Lungs: lungs clear to auscultation. No wheezing, rhonchi, ra les. Heart: RRR without murmur, gallop, or rubs. No ectopy. Abdomen: Normal abdominal exam, Abdomen soft, non-tender. Emir wel sounds normal. No masses, organomegaly. Extremities: No deformities, edema, skin discoloration, club luisa or cyanosis. Good capillary refill. . Health Maintenance List SHINGRIX VACCINE(1 of 2) due on 1985 DTAP,TDAP,TD(2 - Td) due on 09/26/2020 DIABETES SCREEN due on 03/16/2022 BONE DENSITY Completed ADULT PREVNAR-13 Completed INFLUENZA Completed PNEUMOVAX AGE 65 AND OVER WITH 5YR LOOKBACK Completed ASSESSMENT/PLAN: 1. Essential hypertension - ICD9: 401.9, ICD10: I10 - poor control - Increase HCTZ, call on Saturday with updated BP readings. If BP still elevated, will add low dose amlodipine to regimen. - Encouraged dietary sodium restriction/DASH diet - Recommended regular aerobic exercise. - Follow up in 2 weeks for BP recheck. - Reviewed risks of HTN and principles of treatment - Goal of BP <140/90 - HYDROCHLOROTHIAZIDE 25 MG TABLET - CBC - COMP METABOLIC PANEL - TSH BLD - URINALYSIS WITH MICROSCOPIC - LIPID PANEL, NONFASTING - HYDROCHLOROTHIAZIDE 25 MG TABLET Willam Ceja MD cnov on 2019-09-18 CNOV Office Visit (FAMPWS) Normal 09-18-19 [facility] ROSA BOWIE ([id number]) 1935 F [place] Date Time Provider Department ([id number]) 09/18/19 1:20 PM WILLAM CEJA) FAMPWS During your visit today, we recorded the following informati on about you: Temperature Pulse Respiration Blood pressure 97 degrees 67/minute 16/minute 162/84 Weight 92.1 kg Willam Ceja MD 09/18/2019 3:01 PM Signed Chief Complaint Patient presents with: Blood Pressure This Team Access Model visit is a walk in encounter. It requ ired patient-provider interaction for the medical decision making as documented below. HPI Rosa Bowie is a 84 year old female who presents here today for Above Complaints. Patient has been having elevated BPs in the morning with readings typically in the 150-170/80 range. Last n ight BP was as high as 205/115. Patient's face felt hot and turned red, but denied headache, vision changes, chest pain, SOB, leg swelling, nausea, vomiting. No change in her diet. Does not eat much salt. Taking medications faithfully. Past medical history, appointments, medications, allergies pearl márquez. Previous Medical History PAST MEDICAL HISTORY Diagnosis Date - Basal cell carcinoma Dr. 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 Mancini cardiology - SCC (squamous cell carcinoma) face, right leg - Skin cancer - JOAN III (vulvar intraepithelial neoplasia III) - Vitamin D deficiency Previous Surgical History PAST SURGICAL HISTORY Procedure Laterality Date - APPENDECTOMY - CARDIAC CATH 09/2015 [facility], see scanned doc. - DELIVERY ONLY x3 - HYSTERECTOMY HX - OTHER skin cancer face leg - OTHER blocked bowel - PAST SURGICAL HISTORY OF 2016 lower spine cyst removal - PAST SURGICAL HISTORY OF 11/2018 squamous cell carcinoma removal from left face - TOTAL KNEE REPLACEMENT Right - VULVECTOMY RAD ING/FEM NODE Dr Madden [facility]. Family History FAMILY HISTORY Problem Relation Age of Onset - None Mother - other (Other) Father ulcer - Heart Sister - Heart Brother - Heart Brother - Cancer Daughter lung, brain Patient Allergies ALLERGIES Allergen Reactions - Diltiazem Vomiting During hospital stay 10/02 Current Medications Current Outpatient Medications on File Prior to Visit Medication Sig - ISOSORBIDE ORAL Take by mouth. - metoprolol succinate ER (T OPROL XL) 50 mg 24 hr tablet Take 1 tablet by mouth once daily. - losartan-hydrochlorothiazide (HYZAAR) 100-25 m g per tablet Take 1 tablet by mouth once daily. - Hydrochlorothiazide 12.5 mg capsule Take 1 capsule by mout h once daily. - allopurinol (ZYLOPRIM) 100 mg tablet Take 1 ta blet by mouth once daily. For gout. - fluticasone (FLONASE) 50 mcg/actuation nasal spray Use 2 S prays in each nostril once daily. Rinse mouth after use. - Cholecalciferol, Vitamin D3, (VITAMIN D-3) 2,0 00 unit cap Take 1 capsule by mouth once daily. - levothyroxine (SYNTHROID) 100 mcg tabl et Take 1 tablet by mouth daily before breakfast. - levothyroxine (SYNTHROID) 100 mcg tablet TAKE 1 TABLET DAILY BEFORE BREAKFAST - amiodarone (CORDARONE) 200 mg tablet Take 1 ta blet by mouth once daily. Two tablets by mouth twice daily for 2 days then 1 tablet by mouth daily started January 10, 2017 - acetaminophen (TYLENOL EXTRA STRENGTH) 500 mg tablet Take 500 mg by mouth as needed. - RIVAROXABAN (XARELTO ORAL) Take 15 mg by mouth once daily. - ferrous sulfate 325 mg (65 mg iron) tablet Take 1 tablet by mouth twice daily with meals. - simvastatin (ZOCOR) 40 mg tablet Take 1 tablet by mouth daily at bedtime. No current facility-administered medications on file prior t o visit. Social History Social History Tobacco Use - Smoking status: Former Smoker Packs/day: 2.00 Years: 20.00 Pack years: 40.00 Types: Cigarettes Last attempt to quit: 12/26/1977 Years since quittin.7 - Smokeless tobacco: Never Used Substance Use Topics - Alcohol use: Yes Alcohol/week: 17.5 standard drinks Types: 7 Glasses of Wine (5oz) per week Frequency: Never - Drug use: No Review of Symptoms REVIEW OF SYSTEMS See HPI EXAM: BP 162/84 Pulse 67 Temp 36.1 ?C (97 ?F) (Left Tympanic) Resp 16 Wt 92.1 kg (203 lb) BMI 33.78 kg/m? General Appearance: Well eliane earing, alert, in no acute distress, well-hydrated, well nourished.. Skin: Skin color, texture, turgor normal, no suspicious rash es or lesions. Lungs: lungs clear to auscultation. No wheezing, rhonchi, ra les. Heart: RRR without murmur, gallop, or rubs. No ectopy. Abdomen: Normal abdominal exam, Abdomen soft, non-tender. Bowel sounds normal. No masses, organomegaly. Extremities: No deformities, edema, skin discolo ration, clubbing or cyanosis. Good capillary refill. . Health Maintenance List SHINGRIX VACCINE(1 of 2) due on 1985 DTAP,TDAP,TD(2 - Td) due on 09/26/2020 DIABETES SCREEN due on 03/16/2022 BONE DENSITY Completed ADULT PREVNAR-13 Completed INFLUENZA Completed PNEUMOVAX AGE 65 AND OVER WITH 5YR LOOKBACK Completed ASSESSMENT/PLAN: 1. Essential hypertension - ICD9: 401.9, ICD10: I10 - poor control - Increase HCTZ, call on Saturday with updated BP readings. If BP still elevated, will add low dose amlodipine to regimen. - Encouraged dietary sodium restriction/DASH diet - Recommended regular aerobic exercise. - Follow up in 2 weeks for BP recheck. - Reviewed risks of HTN and principles of treatment - Goal of BP <140/90 - HYDROCHLOROTHIAZIDE 25 MG TABLET - CBC - COMP METABOLIC PANEL - TSH BLD - URINALYSIS WITH MICROSCOPIC - LIPID PANEL, NONFASTING - HYDROCHLOROTHIAZIDE 25 MG TABLET Willam Ceja MD Referring Provider: SELF [200] Allergies As of Date: 09/18/2019 Noted Allergy Reaction DILTIAZEM 10/09/2016 11 - Vomiting Comments: During hospital stay 10/02 Date Reviewed: 09/18/2019 Reviewed by: Perri Bal Ma - Fully Assessed Reason for Visit: Blood Pressure [15] Visit Diagnosis:Essential hypertension [I10] Order(s):CBC [SQCBC] Order #: [id number] FUTURE COMP METABOLIC PANEL [SQCMP] Order #: [id number] FUTURE TSH BLD [SQTSH] Order #: [id number] FUTURE URINALYSIS WITH MICROSCOPIC [SQUAWMIC] Order #: [id number] LIPID PANEL, NONFASTING [SQLIPNF] Order #: [id number] FUTURE hydroCHLOROthiazide (HYDRODIURIL, ESIDRIX) 25 mg tabletTake 1 tablet by mouth once daily.Disp: 30 tabletRfl: 0 Prescriptions as of 09/18/2019 Sig: ISOSORBIDE ORAL Take by mouth. METOPROLOL SUCCINATE ER 50 MG* Take 1 tablet by mouth once d * LOSARTAN 100 MG-HYDROCHLOROTH* Take 1 tablet by mouth once d * ALLOPURINOL 100 MG TABLET Take 1 tablet by mouth once d* FLUTICASONE PROPIONATE 50 MCG* Use 2 Sprays in each nostril * CHOLECALCIFEROL (VITAMIN D3) * Take 1 capsule by mouth once * LEVOTHYROXINE 100 MCG TABLET Take 1 tablet by mouth daily * LEVOTHYROXINE 100 MCG TABLET TAKE 1 TABLET DAILY BEFORE BR* AMIODARONE 200 MG TABLET Take 1 tablet by mouth once d* ACETAMINOPHEN 500 MG TABLET Take 500 mg by mouth as neede* XARELTO ORAL Take 15 mg by mouth once karla* HYDROCHLOROTHIAZIDE 25 MG TAB* Take 1 tablet by mouth once d * FERROUS SULFATE 325 MG (65 MG* Take 1 tablet by mouth twice * SIMVASTATIN 40 MG TABLET Take 1 tablet by mouth daily * Problem List As Of Date 09/18/2019 Noted Resolved Paroxysmal atrial fibrillation (HCC) [I48.0] 09/29/2015 More... Acquired hypothyroidism [E03.9] 09/29/2015 More... Mixed hyperlipidemia [E78.2] 09/29/2015 More... Essential hypertension [I10] 09/29/2015 More... Gastroesophageal reflux disease [K21.9] 09/29/2015 Vitamin D deficiency [E55.9] 09/29/2015 Primary osteoarthritis of right knee [M17.11] 09/29/2015 Left thigh pain [M79.652] 05/09/2016 Synovial cyst of lumbar facet joint [M71.38] 06/28/2016 Lumbar radiculopathy, chronic [M54.16] 06/28/2016 CKD (chronic kidney disease) Stage 3, GFR 30-59*02/21/2018 Iron deficiency anemia [D50.9] 06/12/2018 JOAN III (vulvar intraepithelial neoplasia III) * Gout [M10.9] Pain in left hip [M25.552] 02/06/2019 Prescriptions ordered this encounter Disp Refills Start End HYDROCHLOROTHIAZIDE 25 MG TABLET 90 t* 1 09/18/2019 09/18/19 20 Route: ORAL Sig: Take 1 tablet by mouth once daily. HYDROCHLOROTHIAZIDE 25 MG TABLET 30 t* 0 09/18/2019 Route: ORAL Sig: Take 1 tablet by mouth once daily. Medications Discontinued During This Encounter Hydrochlorothiazide 12.5 mg capsule 90 c* 1 06/29/2019 020 Route: ORAL Sig: Take 1 capsule by mouth once daily. Disc: Reason for discontinue is not on file. hydroCHLOROthiazide (HYDRODIURIL, ES* 90 t* 1 09/18/201909/18 Route: ORAL Sig: Take 1 tablet by mouth once daily. Disc: Reason for discontinue is not on file. Encounter Status:Closed by WILLAM CEJA MD on 0 progress on 2019-07 PROGRESS HNO ID: [id number] Normal 08-10-2019 [facility] Author: Yue (Oliver) Podlogar [place] ([id number]) Service: ? Author Type: Nurse Practitioner Type: Progress Notes Filed: 08/10/2019 11:06 AM Note Text: 08/10/2019 Patient presents with: Recheck: lft hip remains very painful, exspecially bad idf s itting very long SUBJECTIVE: This is a 84 year old that is here today for Abo ve Complaints. Since last office visit in March has been in good health . No falls, ER visits, or hospitalizations. Concerns today include memory. HTN: Patient is compliant with meds Yes Monitors bp at home: Yes. Denies side effects: Yes. Chest pain: No. Dyspnea: No. Edema: No. Palpitations: No. Syncope: No. Headache: No. Dizziness: No. Hypothyroidism: Taking as prescribed. Denies hair/skin/nail changes, palpitations, diarrhea/constipation, or cold/heat intoleranc e. CKD: Urinating without difficulty. Trying to stay hydrated a nd watch salt intake AFIB: Seeing child watch attendant in a couple of weeks. Doesn't know if she ever started the Imdur as recommended in his last office note. De nies SOB, dyspnea, cough, chest pain, palpitations, or leg edema. Left Hip Pain: Still having hip pain. Aggravated with moveme nt. Relieved with sitting down. Uses heat which doesn't seem to help. Memory: Having difficulty remembering grandkids names at joey es. This concerns her. Denies driving and getting lost or leaving sto ve on and forgetting she turned it on. MINI-MENTAL STATE EXAMINATION (MMSE) Make the patient comfortable and establish rapport. Ask ques tions in the order listed. Total possible score is 30. ORIENTATION 1. What is the (year) (season) (date) (day) (month)? Max sco re=5 Patient's score=5 2. Where are we? (state) (county) (town or city) (hospital) (floor)? Max score=5 Patient's score=5 REGISTRATION Ask the patient if you may test his/her memory. Then say the names of 3 unrelated objects, clearly and slowly, about one second for each (eg, apple, table, ana). After you have said all 3, ask him/her to repeat them. This first repetition determines the score(0-3), but k eep saying them until he/she can repeat all 3, up to 6 trials. Max scor e=3 Patient's score=3 ATTENTION AND CALCULATION Ask the patient to begin with 100 and count backwards by 7. Stop after 5 subtractions (93, 86, 79, 72, 65). Score the total number of correct answers. If the patient cannot or will not perform the seria l 7s task, ask him/her to spell the word WORLD backwards. The score is the number of letters in the correct order (eg, DLROW=5; DLRW=4; DLORW, DL W=3; OW=2; DRLWO=1). Max score=5 Patient's score=5 RECALL Ask the patient to recall the 3 items repeated above (eg, ap ple, table, ana). Max score=3 Patient's score=1 and 3 LANGUAGE Naming: Show the patient a wristwatch and ask him/her what i t is. Repeat for pencil. Max score=2 Patient's score=1 Repetition: Ask the patient to repeat the phrase No ifs, and s, or buts: after you. Max score=1 Patient's score=1 3-Stage Command: Give the patient a piece of blank paper and ask him/her to take a piece of paper in your right hand, fold it in half , put it on the floor. Score 1 point for each part correctly executed. M ax score=3 Patient's score=3 Reading: On a blank piece of paper, print the sentence CLOSE YOUR EYES in letters large enough for the patient to see clearly. Ask him /her to read it and do what it says. Score 1 point only if he/she actuall y closes his/her eyes. Max score=1 Patient's score=1 Writing: Give the patient a blank piece of paper and ask him /her to write a sentence. Do not dictate a sentence; it is to be written s pontaneously. It must contain a subject and verb and be sensible. Correct grammar and punctuation are not necessary. Max score=1 Patient's score=1 Copying: Ask the patient to copy the figure of intersecting pentagons exactly as it is. All 10 angles must be present and 2 must i ntersect to form a 4-sided figure to score 1 point. Tremor and rotation are ignored. Max score=1 Patient's score=1 MAXIMUM TOTAL SCORE = 30 TOTAL SCORE = 28/30 Suggested guideline for determining the severity of cognitiv e impairment: Mild: MMSE>21 Moderate: MMSE 10-20 Severe: MMSE<9 Expected decline in MMSE scores in untreated mild to moderat e Alzheimer's patient is 2 to 4 points per year. *Adapted from Folstein et al.1 and Katty and Solitariostein2. ( c) 1974, 1997 [employer] Used with permission. References: 1. Folstein MF, Folstein SE, [place]. Mini-Men ángel State: a practical method for grading the cognitive state of patients for the clinician. J Psychiatr Res. 1975; 12:189-198. 2. Divya Alaniz R, Folstein MF, Mini-Mental State Examination (MMSE). Psychopharm Bull. 1988;24:689-692. 3. Dannielle JT, Helen FJ, Rodrick RD, Bandar A, Raven F. Neuropsychological function in Alzheimer's disease: pattern of impairment and rates of progression. Arch Neurol. 1988;45:263-268. 4. M catherine CASTAÑEDA, Jamie B, Francisco S-P, Sriram KAUFMAN. Predictors of cognitive and func tional progression in patients with probable Alzheimer's disease. N eurology. 1992;42:3919-2297. PAST MEDICAL HISTORY Diagnosis Date - Basal cell carcinoma Dr. 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 Mancini cardiology - SCC (squamous cell carcinoma) face, right leg - Skin cancer - JOAN III (vulvar intraepithelial neoplasia III) - Vitamin D deficiency ALLERGIES Diltiazem MEDICATIONS Current Outpatient Medications Medication Sig - metoprolol succinate ER (TOPROL XL) 50 mg 24 hr tablet Gabe e 1 tablet by mouth once daily. - losartan-hydrochlorothiazide (HYZAAR) 100-25 mg per tablet Take 1 tablet by mouth once daily. - ferrous sulfate 325 mg (65 mg iron) tablet Take 1 tablet b y mouth twice daily with meals. - simvastatin (ZOCOR) 40 mg tablet Take 1 tablet by mouth da zaida at bedtime. - Hydrochlorothiazide 12.5 mg capsule Take 1 capsule by mout h once daily. - allopurinol (ZYLOPRIM) 100 mg tablet Take 1 tablet by mout h once daily. For gout. - colchicine 0.6 mg tablet Take 2 tabs then take 1 tab one h our later - fluticasone (FLONASE) 50 mcg/actuation nasal spray Use 2 S prays in each nostril once daily. Rinse mouth after use. - Cholecalciferol, Vitamin D3, (VITAMIN D-3) 2,000 unit cap Take 1 capsule by mouth once daily. - levothyroxine (SYNTHROID) 100 mcg tablet Take 1 tablet by mouth daily before breakfast. - levothyroxine (SYNTHROID) 100 mcg tablet TAKE 1 TABLET EZIO LY BEFORE BREAKFAST - amiodarone (CORDARONE) 200 mg tablet Take 1 tablet by mout h once daily. Two tablets by mouth twice daily for 2 days then 1 tablet by mouth daily started January 10, 2017 - acetaminophen (TYLENOL EXTRA STRENGTH) 500 mg tablet Take 500 mg by mouth as needed. - RIVAROXABAN (XARELTO ORAL) Take 15 mg by mouth once daily. No current facility-administered medications for this visit. Medications and allergies reviewed by this provider. SOCIAL HISTORY Social History Tobacco Use - Smoking status: Former Smoker Packs/day: 2.00 Years: 20.00 Pack years: 40.00 Types: Cigarettes Last attempt to quit: 12/26/1977 Years since quittin.6 - Smokeless tobacco: Never Used Substance Use Topics - Alcohol use: Yes Alcohol/week: 17.5 standard drinks Types: 7 Glasses of Wine (5oz) per week Frequency: Never - Drug use: No REVIEW OF SYSTEMS All other reviewed and negative other than HPI. OBJECTIVE: BP 130/78 (BP Site: Right Arm, BP Position: Sitting, BP Cuff Size: Large Adult) Pulse 62 Resp 16 Wt 91.5 kg (201 lb 12.8 oz) BMI 33.58 kg/m? . Vital signs reviewed by this provider. APPEARANCE Well appearing, alert, in no acute distress, well -hydrated, well nourished. NECK Supple, no adenopathy; thyroid symmetric, normal size, no bruits HEART RRR with normal S1 and S2, no murmurs, no gallops, no JVD appreciated LUNG clear to auscultation. No wheezes, rhonchi, or rales EXTREMITIES Extremities normal, No deformities, No skin disc oloration and No edema SKIN Skin color, texture, turgor normal, no suspicious rashe s or lesions to exposed skin DTAP,TDAP,TD(2 - Td) due on 09/26/2020 DIABETES SCREEN due on 03/16/2022 BONE DENSITY Completed ADULT PREVNAR-13 Completed INFLUENZA Completed PNEUMOVAX AGE 65 AND OVER WITH 5YR LOOKBACK Completed ASSESSMENT/PLAN: 1. Hypertension, essential - ICD9: 401.9, ICD10: I10 (primar y diagnosis) - good control - Continue current medication(s) - Encouraged dietary sodium restriction/DASH diet - Recommended regular aerobic exercise. - Recommend home blood pressure monitoring, to bring results in on next visit - Discussed need and benefit for weight loss. - Recheck in 6 months, sooner should new symptoms or problem s arise. - Goal of BP <130/80 - Recommended no refined sugar, low refined starch, healthy oil intake (olive oil), healthy protein (fish) along the lines of the M chidi diet. - BASIC METABOLIC PNL 2. Hypothyroidism, acquired - ICD9: 244.9, ICD10: E03.9 - Instructed patient on importance of taking on an empty sto mach either first thing in the morning or at bedtime. - TSH BLD 3. Hyperlipidemia, mixed - ICD9: 272.2, ICD10: E78.2 - to be determined upon return of lab results - Continue current medication. - LIPID PANEL BASIC 4. Concern about disease without diagnosis - ICD9: V65.5, IC D10: Z71.1 - no red flag exam fidnings - discussed memory concerns with patient MMSE 28/30 did have difficulty recalling word - recommend she keep her mind active with puzzles, reading, and activities - discussed safety concerns regarding driving and getting lo st and things such as leaving stove on and forgetting - will monitor 5. Left hip pain - ICD9: 719.45, ICD10: M25.552 - offered referral to ortho for possible hip injection, decl bernice as this time - does not wish to go back to therapy - recommend heat and tylenol for pain - also discussed the importance of remaining active - continue use of cane 6. CKD (chronic kidney disease) Stage 3, GFR 30-59 ml/min - ICD9: 585.3, ICD10: N18.3 - continue pushing fluids, watching salt intake and continue d avoidance of NSAID usage 7. Paroxysmal atrial fibrillation (HCC) - ICD9: 427.31, ICD1 0: I48.0 - follow-up with Cardiology as scheduled - wrote on her medication list to discuss Imdur with cardiol ron also needs to check to see if she got this medication filled or not and if she should be taking this Yue Podlogar, SILVERSMITH APPRENTICE.CONTROLS TECHNICIAN Prescription instructions reviewed with patient as applicabl e. Patient advised if symptoms do not improve or if symptoms worsen zara ner, to contact their primary care physician. Potential red flag sym ptoms discussed with the patient. Reviewed appropriate action plan to take if red flag symptoms occur. Patient agreeable to treatment plan . cnov on 2019-08-10 CNOV Office Visit (FAMPWS) Normal 08-10-19 [place] [facility] ROSA BOWIE ([id number]) 1935 [facility] Date Time Provider Department ([id number]) 08/10/19 10:00 AM YUE CHANG (CONTROLS TECHNICIAN) [facility] During your visit today, we recorded the following informati on about you: Pulse Respiration Blood pressure Weight 62/minute 16/minute 130/78 91.5 kg Yue Chang APRN.CNP 08/10/2019 11:06 AM Signed 08/10/2019 Patient presents with: Recheck: lft hip remains very painful, exspecially bad idf sitting very long SUBJECTIVE: This is a 84 year old that is here today for Abo ve Complaints. Since last office visit in March has been in good health . No falls, ER visits, or hospitalizations. Concerns today include memory. HTN: Patient is compliant with meds Yes Monitors bp at home: Yes. Denies side effects: Yes. Chest pain: No. Dyspnea: No. Edema: No. Palpitations: No. Syncope: No. Headache: No. Dizziness: No. Hypothyroidism: Taking as prescribed. Denies hair/skin/nail changes, palpitations, diarrhea/constipation, or cold/heat intoleranc e. CKD: Urinating without difficulty. Trying to stay hydrated a nd watch salt intake AFIB: Seeing child watch attendant in a couple of weeks. Doesn't know if she ever started the Imdur as recommended in his last office note. Denies SOB, dyspnea, cough, chest pain, palpitations, or leg edema. Left Hip Pain: Still having hip pain. Aggravated with movement. Relieved with sitting down. Uses heat which doesn't seem to help. Memory: Having difficulty remembering grandkids names at times. This concerns her. Denies driving and getting lost or leaving stove on a nd forgetting she turned it on. MINI-MENTAL STATE EXAMINATION (MMSE) Make the patient comfortable and establi sh rapport. Ask questions in the order listed. Total possible score is 30. ORIENTATION 1. What is the (year) (season) (date) (day) (month)? Max sco re=5 Patient's score=5 2. Where are we? (state) (county) (town or city) (hospital) (floor)? Max score=5 Patient's score=5 REGISTRATION Ask the patient if you may test his/her memory. Then say the names of 3 unrelated objects, clearly and slowly, about one secon d for each (eg, apple, table, ana). After you have said all 3, ask him/her to rep eat them. This first repetition determines the score(0-3), but keep saying them until he/she can repeat all 3, up to 6 trials. Max score=3 Patient's scor e=3 ATTENTION AND CALCULATION Ask the patient to begin with 100 and count backwards by 7. Stop after 5 subtractions (93, 86, 79, 72, 65). Score the tot al number of correct answers. If the patient cannot or will not perform the serial 7 s task, ask him/her to spell the word WORLD backwards. The score is the number of l etters in the correct order (eg, DLROW=5; DLRW=4; DLORW, DLW=3 ; OW=2; DRLWO=1). Max score=5 Patient's score=5 RECALL Ask the patient to recall th e 3 items repeated above (eg, apple, table, ana). Max score=3 Patient's score=1 and 3 LANGUAGE Naming: Show the patient a wristwatch and ask him/her what it is. Repeat for pencil. Max score=2 Patient's score=1 Repetition: Ask the patient to repeat the phrase No ifs, ands, or buts: after you. Max score=1 Patient's score=1 3-Stage Command: Give the patient a piece of blank paper a nd ask him/her to take a piece of paper in you r right hand, fold it in half, put it on the floor. Score 1 point for each part correctly executed. Max score=3 Patient's score=3 Reading: On a blank piece of paper, print the sentence CLOSE YOUR EYES in letters large enough for the patient to see clearly. Ask h im/her to read it and do what it says. Score 1 point only if he/she actually c loses his/her eyes. Max score=1 Patient's score=1 Writing: Give the patient a blank piece of paper and ask h im/her to write a sentence. Do not dictate a sentence; it is to be written spo ntaneously. It must contain a subject and verb and be sensible. Correct gra mmar and punctuation are not necessary. Max score=1 Patient's score=1 Copying: Ask the patient to copy the figure of i ntersecting pentagons exactly as it is. All 10 angles must be present and 2 must intersect to form a 4-sided figure to score 1 point. Tremor and rotation are ignored. Ma x score=1 Patient's score=1 MAXIMUM TOTAL SCORE = 30 TOTAL SCORE = 28/30 Suggested guideline for determining the severity of cognitiv e impairment: Mild: MMSE>21 Moderate: MMSE 10-20 Severe: MMSE<9 Expected decline in MMSE scores in untreated mild to moderat e Alzheimer's patient is 2 to 4 points per year. *Adapted from Folstein et al.1 and Lila Phillips2. (c) 1974, 1997 [employer] Used with permission. References: 1. Folstein MF, Folstein SE, [place]. Mini-Men ángel State: a practical method for grading the cognitive state of patients for the clinician. J Psychiatr Res. 1975; 12:189-198. 2. JR Katty, Rigoberto oliveros MF, Mini-Mental State Examination (MMSE). Psychopharm Bull. 1988;24:689-692. 3. Dannielle JT, Helen FJ, Rodrick RD, Bandar A, Raven F. Neuropsychological f unction in Alzheimer's disease: pattern of impairment and rates of prog ression. Arch Neurol. 1988;45:263-268. 4. Sammy JA, Jamie B, Francisco S-P, F ian KAUFMAN. Predictors of cognitive and functional progression in patients with probable Alzheimer's disease. Neurology. 1992;42:6415-9117. PAST MEDICAL HISTORY Diagnosis Date - Basal cell carcinoma Dr. 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 Mancini cardiology - SCC (squamous cell carcinoma) face, right leg - Skin cancer - JOAN III (vulvar intraepithelial neoplasia III) - Vitamin D deficiency ALLERGIES Diltiazem MEDICATIONS Current Outpatient Medications Medication Sig - metoprolol succinate ER (T OPROL XL) 50 mg 24 hr tablet Take 1 tablet by mouth once daily. - losartan-hydrochlorothiazide (HYZAAR) 100-25 m g per tablet Take 1 tablet by mouth once daily. - ferrous sulfate 325 mg (65 mg iron) tablet Take 1 tablet by mouth twice daily with meals. - simvastatin (ZOCOR) 40 mg tablet Take 1 tablet by mouth daily at bedtime. - Hydrochlorothiazide 12.5 mg capsule Take 1 capsule by mout h once daily. - allopurinol (ZYLOPRIM) 100 mg tablet Take 1 ta blet by mouth once daily. For gout. - colchicine 0.6 mg tablet Take 2 tabs then take 1 tab one h our later - fluticasone (FLONASE) 50 mcg/actuation nasal spray Use 2 S prays in each nostril once daily. Rinse mouth after use. - Cholecalciferol, Vitamin D3, (VITAMIN D-3) 2,0 00 unit cap Take 1 capsule by mouth once daily. - levothyroxine (SYNTHROID) 100 mcg tabl et Take 1 tablet by mouth daily before breakfast. - levothyroxine (SYNTHROID) 100 mcg tablet TAKE 1 TABLET DAILY BEFORE BREAKFAST - amiodarone (CORDARONE) 200 mg tablet Take 1 ta blet by mouth once daily. Two tablets by mouth twice daily for 2 days then 1 tablet by mouth daily started January 10, 2017 - acetaminophen (TYLENOL EXTRA STRENGTH) 500 mg tablet Take 500 mg by mouth as needed. - RIVAROXABAN (XARELTO ORAL) Take 15 mg by mouth once daily. No current facility-administered medications for this visit. Medications and allergies reviewed by this provider. SOCIAL HISTORY Social History Tobacco Use - Smoking status: Former Smoker Packs/day: 2.00 Years: 20.00 Pack years: 40.00 Types: Cigarettes Last attempt to quit: 12/26/1977 Years since quittin.6 - Smokeless tobacco: Never Used Substance Use Topics - Alcohol use: Yes Alcohol/week: 17.5 standard drinks Types: 7 Glasses of Wine (5oz) per week Frequency: Never - Drug use: No REVIEW OF SYSTEMS All other reviewed and negative other than HPI. OBJECTIVE: BP 130/78 (BP Site: Right Ar m, BP Position: Sitting, BP Cuff Size: Large Adult) Pulse 62 Resp 16 Wt 91.5 kg (201 lb 12.8 oz) BMI 33. 58 kg/m? . Vital signs reviewed by this provider. APPEARANCE Well appearing, alert, in no acute distress, we ll-hydrated, well nourished. NECK Supple, no adenopathy; thyroid symmetric, normal size, no bruits HEART RRR with normal S1 and S2, no murmurs, no gallops, n o JVD appreciated LUNG clear to auscultation. No wheezes, rhonchi, or rales EXTREMITIES Extremities normal, No deformities, No ski n discoloration and No edema SKIN Skin color, texture, turgor normal, no suspicious brendan hes or lesions to exposed skin DTAP,TDAP,TD(2 - Td) due on 09/26/2020 DIABETES SCREEN due on 03/16/2022 BONE DENSITY Completed ADULT PREVNAR-13 Completed INFLUENZA Completed PNEUMOVAX AGE 65 AND OVER WITH 5YR LOOKBACK Completed ASSESSMENT/PLAN: 1. Hypertension, essential - ICD9: 401.9, ICD10: I10 (primar y diagnosis) - good control - Continue current medication(s) - Encouraged dietary sodium restriction/DASH diet - Recommended regular aerobic exercise. - Recommend home blood pressure monitoring, to b ring results in on next visit - Discussed need and benefit for weight loss. - Recheck in 6 months, sooner should new symptoms or problem s arise. - Goal of BP <130/80 - Recommended no refined sugar, low refined star ch, healthy oil intake (olive oil), healthy protein (fish) along the lines of the Mediterr anean diet. - BASIC METABOLIC PNL 2. Hypothyroidism, acquired - ICD9: 244.9, ICD10: E03.9 - Instructed patient on importance of taking on an empty stomach either first thing in the morning or at bedtime. - TSH BLD 3. Hyperlipidemia, mixed - ICD9: 272.2, ICD10: E78.2 - to be determined upon return of lab results - Continue current medication. - LIPID PANEL BASIC 4. Concern about disease without diagnosis - ICD9: V65.5, IC D10: Z71.1 - no red flag exam fidnings - discussed memory concerns with patient MMSE 28/30 did have difficulty recalling word - recommend she keep her mind active with puzzles, reading, and activities - discussed safety concerns regarding dr shea and getting lost and things such as leaving stove on and forgetting - will monitor 5. Left hip pain - ICD9: 719.45, ICD10: M25.552 - offered referral to ortho for possible hip inj ection, declines as this time - does not wish to go back to therapy - recommend heat and tylenol for pain - also discussed the importance of remaining active - continue use of cane 6. CKD (chronic kidney disea se) Stage 3, GFR 30-59 ml/min - ICD9: 585.3, ICD10: N18.3 - continue pushing fluids, watching salt intake and continue d avoidance of NSAID usage 7. Paroxysmal atrial fibrillation (HCC) - ICD9: 427.31, ICD1 0: I48.0 - follow-up with Cardiology as scheduled - wrote on her medication list to discuss Imdur with cardiology also needs to check to see if she got this medication filled or not and if she should be taking this Yue Podlogar, [employer] APPRENTICE.CONTROLS TECHNICIAN Prescription instructions reviewed with patient as applicable. Patient advised if symptoms do not improve or if symptoms worsen sooner, to contact their primary care physician. Potential red flag symptoms discusse d with the patient. Reviewed appropriate action plan to gabe e if red flag symptoms occur. Patient agreeable to treatment plan. Referring Provider: SELF [[id number]] Allergies As of Date: 08/10/2019 Noted Allergy Reaction DILTIAZEM 10/09/2016 11 - Vomiting Comments: During hospital stay 10/02 Date Reviewed: 08/10/2019 Reviewed by: Amisha Stone (Test Center Administrator) MATILDA Solis - Fully Assessed Reason for Visit: Recheck [92] Cmt: lft hip remains very painful, exspeciall y bad idf sitting very long Primary Visit Diagnosis:Hypertension, essential [I10] Other Visit Diagnoses:Hypothyroidism, acquired [E03.9] Hyperlipidemia, mixed [E78.2] Concern about disease without diagnosis [Z71.1] Left hip pain [M25.552] CKD (chronic kidney disease) Stage 3, GFR 30-59 ml/min [N18.3] Paroxysmal atrial fibrillation (HCC) [I48.0] Order(s):TSH BLD [SQTSH] Order #: [id number] FUTURE LIPID PANEL BASIC [SQLIPB] Order #: [id number] FUTURE BASIC METABOLIC PNL [SQBMP] Order #: [id number] FUTURE Prescriptions as of 08/10/2019 Sig: METOPROLOL SUCCINATE ER 50 MG* Take 1 tablet by mouth once d * LOSARTAN 100 MG-HYDROCHLOROTH* Take 1 tablet by mouth once d * SIMVASTATIN 40 MG TABLET Take 1 tablet by mouth daily * HYDROCHLOROTHIAZIDE 12.5 MG C* Take 1 capsule by mouth once * ALLOPURINOL 100 MG TABLET Take 1 tablet by mouth once d* FLUTICASONE PROPIONATE 50 MCG* Use 2 Sprays in each nostril * CHOLECALCIFEROL (VITAMIN D3) * Take 1 capsule by mouth once * LEVOTHYROXINE 100 MCG TABLET Take 1 tablet by mouth daily * LEVOTHYROXINE 100 MCG TABLET TAKE 1 TABLET DAILY BEFORE BR* AMIODARONE 200 MG TABLET Take 1 tablet by mouth once d* ACETAMINOPHEN 500 MG TABLET Take 500 mg by mouth as neede* XARELTO ORAL Take 15 mg by mouth once karla* FERROUS SULFATE 325 MG (65 MG* Take 1 tablet by mouth twice * Problem List As Of Date 08/10/2019 Noted Resolved Paroxysmal atrial fibrillation (HCC) [I48.0] 09/29/2015 More... Acquired hypothyroidism [E03.9] 09/29/2015 More... Mixed hyperlipidemia [E78.2] 09/29/2015 More... Essential hypertension [I10] 09/29/2015 More... Gastroesophageal reflux disease [K21.9] 09/29/2015 Vitamin D deficiency [E55.9] 09/29/2015 Primary osteoarthritis of right knee [M17.11] 09/29/2015 Left thigh pain [M79.652] 05/09/2016 Synovial cyst of lumbar facet joint [M71.38] 06/28/2016 Lumbar radiculopathy, chronic [M54.16] 06/28/2016 CKD (chronic kidney disease) Stage 3, GFR 30-59*02/21/2018 Iron deficiency anemia [D50.9] 06/12/2018 JOAN III (vulvar intraepithelial neoplasia III) * Gout [M10.9] Pain in left hip [M25.552] 02/06/2019 Medications Discontinued During This Encounter colchicine 0.6 mg tablet 3 ta* 0 05/21/2019 08/10/2019 Sig: Take 2 tabs then take 1 tab one hour later Patient not taking: Reported on 08/10/2019 Disc: Course of therapy completed colchicine 0.6 mg tablet 3 ta* 0 05/21/2019 08/10/2019 Sig: Take 2 tabs then take 1 tab one hour later Patient not taking: Reported on 08/10/2019 Disc: Course of therapy completed colchicine 0.6 mg tablet 3 ta* 0 05/21/2019 08/10/2019 Sig: Take 2 tabs then take 1 tab one hour later Patient not taking: Reported on 08/10/2019 Disc: Course of therapy completed Follow-up and Disposition History Recorded Encounter Status:Closed by YUE CHANG CNP on 08/10/19 obsolete on 2019-06 OBSOLETE Refill (ERIKPWS) Normal 07-08-2019 [facility] ROSA BOWIE ([id number]) 1935 [facility] Date Time Provider Department ([id number]) 07/08/19 WILLAM CEJA) MARY During your visit today, we recorded the following informati on about you: Fidelia Chun CMA, MA 07/08/2019 10:34 AM Signed DOV: 03/13/2019 NOV: 08/10/2019 Last prescription: 12/15/2018--90 day--1 refill Pharmacy checked? Yes Patient has been identified by name and date of : Yes Pending Prescriptions Disp Refills METOPROLOL SUCCINATE ER 50 MG TABLET,EXTENDED RELEASE 24 HR 90 tablet 1 Sig: Take 1 tablet by mouth once daily. SAVI: No LOSARTAN 100 MG-HYDROCHLOROTHIAZIDE 25 MG TABLET 90 tablet 1 Sig: Take 1 tablet by mouth once daily. SAVI: No FERROUS SULFATE 325 MG (65 MG IRON) TABLET 180 tablet 1 Sig: Take 1 tablet by mouth twice daily with meals. SAVI: No SIMVASTATIN 40 MG TABLET 90 tablet 1 Sig: Take 1 tablet by mouth daily at bedtime. SAVI: No RX INSTRUCTIONS: Pharmacy initiated this request. No need to notify patient. Fidelia Chun CMA Allergies As of Date: 07/08/2019 Noted Allergy Reaction DILTIAZEM 10/09/2016 11 - Vomiting Comments: During hospital stay 10/02 Date Reviewed: 05/18/2019 Reviewed by: Keila Lubin - Fully Assessed Reason for Visit: Refill Request [94] Visit Diagnoses:Essential hypertension [I10] Mixed hyperlipidemia [E78.2] Order(s):metoprolol succinate ER (TOPROL XL) 50 mg 24 hr tabletTake 1 tablet by mouth once daily.Disp: 90 tabletRfl: 1 losartan-hydrochlorothiazide (HYZAAR) 100-25 mg per tabletTa ke 1 tablet by mouth once daily.Disp: 90 tabletRfl: 1 ferrous sulfate 325 mg (65 mg iron) tabletTake 1 tablet by m outh twice daily with meals.Disp: 180 tabletRfl: 1 simvastatin (ZOCOR) 40 mg tabletTake 1 tablet by mouth daily at bedtime.Disp: 90 tabletRfl: 1 Prescriptions as of 07/08/2019 Sig: METOPROLOL SUCCINATE ER 50 MG* Take 1 tablet by mouth once d * LOSARTAN 100 MG-HYDROCHLOROTH* Take 1 tablet by mouth once d * FERROUS SULFATE 325 MG (65 MG* Take 1 tablet by mouth twice * SIMVASTATIN 40 MG TABLET Take 1 tablet by mouth daily * HYDROCHLOROTHIAZIDE 12.5 MG C* Take 1 capsule by mouth once * ALLOPURINOL 100 MG TABLET Take 1 tablet by mouth once d* COLCHICINE 0.6 MG TABLET Take 2 tabs then take 1 tab o* FLUTICASONE PROPIONATE 50 MCG* Use 2 Sprays in each nostril * CHOLECALCIFEROL (VITAMIN D3) * Take 1 capsule by mouth once * LEVOTHYROXINE 100 MCG TABLET Take 1 tablet by mouth daily * LEVOTHYROXINE 100 MCG TABLET TAKE 1 TABLET DAILY BEFORE BR* AMIODARONE 200 MG TABLET Take 1 tablet by mouth once d* ACETAMINOPHEN 500 MG TABLET Take 500 mg by mouth as neede* XARELTO ORAL Take 15 mg by mouth once karla* Problem List As Of Date 07/08/2019 Noted Resolved Paroxysmal atrial fibrillation (HCC) [I48.0] 09/29/2015 More... Acquired hypothyroidism [E03.9] 09/29/2015 More... Mixed hyperlipidemia [E78.2] 09/29/2015 More... Essential hypertension [I10] 09/29/2015 More... Gastroesophageal reflux disease [K21.9] 09/29/2015 Vitamin D deficiency [E55.9] 09/29/2015 Primary osteoarthritis of right knee [M17.11] 09/29/2015 Left thigh pain [M79.652] 05/09/2016 Synovial cyst of lumbar facet joint [M71.38] 06/28/2016 Lumbar radiculopathy, chronic [M54.16] 06/28/2016 CKD (chronic kidney disease) Stage 3, GFR 30-59*02/21/2018 Iron deficiency anemia [D50.9] 06/12/2018 JOAN III (vulvar intraepithelial neoplasia III) * Gout [M10.9] Pain in left hip [M25.552] 02/06/2019 Prescriptions ordered this encounter Disp Refills Start End METOPROLOL SUCCINATE ER 50 MG TABLET* 90 t* 1 07/08/2019 Route: ORAL Sig: Take 1 tablet by mouth once daily. LOSARTAN 100 MG-HYDROCHLOROTHIAZIDE * 90 t* 1 07/08/2019 Route: ORAL Sig: Take 1 tablet by mouth once daily. FERROUS SULFATE 325 MG (65 MG IRON) * 180 * 1 07/08/2019 Route: ORAL Sig: Take 1 tablet by mouth twice daily with meals. SIMVASTATIN 40 MG TABLET 90 t* 1 07/08/2019 10/06/2019 Route: ORAL Sig: Take 1 tablet by mouth daily at bedtime. Medications Discontinued During This Encounter metoprolol succinate ER (TOPROL XL) * 90 t* 1 12/15/201806/28 Route: ORAL Sig: Take 1 tablet by mouth once daily. Disc: Reason for discontinue is not on file. losartan-hydrochlorothiazide (HYZAAR* 90 t* 1 12/15/201806/28 Route: ORAL Sig: Take 1 tablet by mouth once daily. Disc: Reason for discontinue is not on file. ferrous sulfate 325 mg (65 mg iron) * 180 * 1 12/15/201806/28 Route: ORAL Sig: Take 1 tablet by mouth twice daily with meals. Disc: Reason for discontinue is not on file. simvastatin (ZOCOR) 40 mg tablet 90 t* 1 12/15/2018 9 Route: ORAL Sig: Take 1 tablet by mouth daily at bedtime. Disc: Reason for discontinue is not on file. Encounter Status:Closed by YUE CHANG CNP on 07/08/19 progress on 2019-04 PROGRESS HNO ID: [id number] Normal 05-18-2019 [facility] Author: Jaylen Rausch Sanchez ([id number]) Service: ? Author Type: Physician Type: Progress Notes Filed: 05/18/2019 10:37 AM Note Text: Rosa Bowie is a 83 year old female who presents today for a colposcopy. H/o VIN3. S/p excision of vulvar lesion 09/04/18 with a positi ve margin. test: n/a UNIVERSAL PROTOCOL / SAFETY CHECKLIST Procedure to be performed: Colposcopy Sign in Communication: Completed Time Out: Team Confirms the Correct Patient, Correct Procedu re, Correct Site and Site Marking, Correct Position (if applicable), Pre p and Dry Time (if applicable). Time: 10:30 Affirmation of Time Out: YES Sign Out Discussion: Completed PROCEDURE: EXTERNAL GENITALIA: Normal in appearance without lesions. No acetowhite changes. BIOPSY: Not done. Procedure Summary: Patient tolerated procedure well and colp oscopy was adequate. 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 No rmal vulvar colposcopy today PLAN: Discussed to call with any new lesions or vulvar symptoms in cluding pruritis. RTO 6 months for annual exam. Jaylen Rausch, DO cnov on 2019-05-18 CNOV Office Visit (WOOB) Normal 05-18-2019 [facility] ROSA BOWIE ([id number]) 1935 [place] Date Time Provider Department ([id number]) 05/18/19 9:50 AM JAYLEN RAUSCH During your visit today, we recorded the following informati on about you: Blood pressure Weight 114/70 91.4 kg Jaylen Rausch MD 05/18/2019 10:37 AM Signed Rosa Bowie is a 83 year old female who presents today for a colposcopy. H/o VIN3. S/p excision of vulvar lesion 09/04/18 with a positive m argin. test: n/a UNIVERSAL PROTOCOL / SAFETY CHECKLIST Procedure to be performed: Colposcopy Sign in Communication: Completed Time Out: Team Confirms the Correct Patient, Correct P rocedure, Correct Site and Site Marking, Correct Position (if applicable), Prep and Dry Time (if applicable). Time: 10:30 Affirmation of Time Out: YES Sign Out Discussion: Completed PROCEDURE: EXTERNAL GENITALIA: Normal in appearance without lesions. No acetowhite changes. BIOPSY: Not done. Procedure Summary: Patient t olerated procedure well and colposcopy was adequate. 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 No rmal vulvar colposcopy today PLAN: Discussed to call with any new lesions or vulvar symptoms including pruritis. RTO 6 months for annual exam. DO Keila Wheeler MA 05/18/2019 10:02 AM Signed YOUR RECOVERY It may take a few weeks for your cervix to heal. While your cervix heals, you may have: - Vaginal bleeding (less than a normal menstrual period) - Mild cramping - A brown-black vaginal disc harge (similar to coffee grounds) which is a result of the paste used to help stop bleeding from the procedure Do NOT put anything in the vagina for 1 week after your colp oscopy if your doctor does a biopsy of your cervix. This includ es sex, tampons, and douches. If you have any discomfort, you may take an over the c ounter pain medication (motrin, advil, ibuprofen, tylenol, etc). If this does not r elieve your discomfort, contact your doctor's office for a prescription strength pain medication. It is okay to wear a sanitary pad until the discharge and sp otting stops. RISKS Although problems seldom occur with colposcopy, there can be some complications. You may feel faint during and shortly after the procedure as well as have some bleeding and vaginal d ischarge after the procedure. There is also a risk of infection after the proce dure. These complications are rare and can be easily treated. You should contact you doctor is you have any of the followi ng: - Heavy bleeding (more than your normal period) - Bleeding with clots - Severe abdominal pain - Fever (more than 100.4F) - Foul smelling vaginal discharge RESULTS If a biopsy was taken, we will have the results of you r biopsy in 1-2 weeks. If you do not hear the results of your biopsy after 2 week s, please contact your physicians office for the results. Dependin g on the biopsy results, your doctor will determine your follow up layton n which may include further testing or treatments. STAYING HEALTHY After the procedure, you will need to see your doctor for fo llow up visits during the year. At these visits your doctor will check the health of your cervix with a pap smear. After three nor mal pap smears, your doctor will allow you to return to having exams once a year. If you have ano ther abnormal pap smear, you may need closer follow up for longer or you may n eed additional treatment. By making a few lifestyle ch anges after the procedure, you can help protect the health of your cervix: - Have regular pelvic exams and pap smears as ordered by you r doctor. - Stop smoking as smoking increases your risk of developin g a cancer of the cervix - If you have more than one sexual partner, limi t your number of partners and use condoms to reduce your risks of STDs. If you have any additional questions, please contact your do ctor's office. 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] Order(s):COLPOSCOPY [[id number]] Order #: [id number] Prescriptions as of 05/18/2019 Sig: FLUTICASONE PROPIONATE 50 MCG* Use 2 Sprays in each nostril * CHOLECALCIFEROL (VITAMIN D3) * Take 1 capsule by mouth once * LOSARTAN 100 MG-HYDROCHLOROTH* Take 1 tablet by mouth once d * ALLOPURINOL 100 MG TABLET Take 1 tablet by mouth once d* METOPROLOL SUCCINATE ER 50 MG* Take 1 tablet by mouth once d * FERROUS SULFATE 325 MG (65 MG* Take 1 tablet by mouth twice * LEVOTHYROXINE 100 MCG TABLET TAKE 1 TABLET DAILY BEFORE BR* HYDROCHLOROTHIAZIDE 12.5 MG C* Take 1 capsule by mouth once * AMIODARONE 200 MG TABLET Take 1 tablet by mouth once d* ACETAMINOPHEN 500 MG TABLET Take 500 mg by mouth as neede* XARELTO ORAL Take 15 mg by mouth once karla* LEVOTHYROXINE 100 MCG TABLET Take 1 tablet by mouth daily * SIMVASTATIN 40 MG TABLET Take 1 tablet by mouth daily * Problem List As Of Date 05/18/2019 Noted Resolved Paroxysmal atrial fibrillation (HCC) [I48.0] INVALID FOR* More... Acquired hypothyroidism [E03.9] INVALID FOR* More... Mixed hyperlipidemia [E78.2] INVALID FOR* More... Essential hypertension [I10] INVALID FOR* More... Gastroesophageal reflux disease [K21.9] INVALID FOR* Vitamin D deficiency [E55.9] INVALID FOR* Primary osteoarthritis of right knee [M17.11] INVALID FOR* Left thigh pain [M79.652] INVALID FOR* Synovial cyst of lumbar facet joint [M71.38] INVALID FOR* Lumbar radiculopathy, chronic [M54.16] INVALID FOR* CKD (chronic kidney disease) Stage 3, GFR 30-59*INVALID FOR* Iron deficiency anemia [D50.9] INVALID FOR* JOAN III (vulvar intraepithelial neoplasia III) * Gout [M10.9] Pain in left hip [M25.552] INVALID FOR* Other instructions from your clinician: YOUR RECOVERY It may take a few weeks for your cervix to heal. While your cervix heals, you may have: - Vaginal bleeding (less than a normal menstrual period) - Mild cramping - A brown-black vaginal discharge (similar to coffee grounds ) which is a result of the paste used to help stop bleeding from the proc edure Do NOT put anything in the vagina for 1 week after your colp oscopy if your doctor does a biopsy of your cervix. This includes sex, tamp ons, and douches. If you have any discomfort, you may take an over the counter pain medication (motrin, advil, ibuprofen, tylenol, etc). If this does not relieve your discomfort, contact your doctor's office for a prescription strength pain medication. It is okay to wear a sanitary pad until the discharge and sp otting stops. RISKS Although problems seldom occur with colposcopy, there can be some complications. You may feel faint during and shortly after t he procedure as well as have some bleeding and vaginal discharge after th e procedure. There is also a risk of infection after the procedure. These complications are rare and can be easily treated. You should contact you doctor is you have any of the followi ng: - Heavy bleeding (more than your normal period) - Bleeding with clots - Severe abdominal pain - Fever (more than 100.4F) - Foul smelling vaginal discharge RESULTS If a biopsy was taken, we will have the results of your biop sy in 1-2 weeks. If you do not hear the results of your biopsy after 2 weeks, please contact your physicians office for the results. Serafin davis on the biopsy results, your doctor will determine your follow up pl an which may include further testing or treatments. STAYING HEALTHY After the procedure, you will need to see your doctor for fo llow up visits during the year. At these visits your doctor will check the health of your cervix with a pap smear. After three normal pap smears, your doctor will allow you to return to having exams once a year. If you have another abnormal pap smear, you may need closer follow up for longer or you may need additional treatment. By making a few lifestyle changes after the procedure, you c an help protect the health of your cervix: - Have regular pelvic exams and pap smears as ordered by you r doctor. - Stop smoking as smoking increases your risk of developing a cancer of the cervix - If you have more than one sexual partner, limit your numbe r of partners and use condoms to reduce your risks of STDs. If you have any additional questions, please contact your do ctor's office. Disposition: Return in about 6 months (around 11/17/2019) for Annual exam . Follow-up and Disposition History Recorded Encounter Status:Closed by JAYLEN RAUSCH MD on 05/18/19 replaced document: liver profile on 2017-04-23 ALP enzyme 76 45-117 U/L Invalid 04-23-2017 - [facility]/vol (Bld) Interpretation Code 2016 Group ([id number]) Globulin mass 3.9 2.3-3.5 g/dL High 04-23-2017 - [facility] (S) 04-23-2017 Group ([id number]) lab report: thyroid stim hormone (tsh) on 2017-04-23 Thyroid 0.40 0.358-3.74 u[iU]/mL Invalid 04-23-2017 - [facility] Interpretation Code 04-23-20 17 [facility] hormone (TSH) ([id number] ) lab report: t4 total, thyroxin on 2017-04-23 Thyroxine (T4) 12.6 4.8-13.9 ug/dL Invalid 04-23-2017 - [facility] Interpretation Code 04-23-2017 Group ([id number]) lab report: liver profile on 2017-04-23 Alanine 14 12-78 U/L Invalid 04-23-2017 - [facility] aminotransferase Interpretation 04-23-20 17 [facility] (ALT) Code (77800) Albumin 3.4 3.4-5.0 g/dL Invalid 04-23-2017 - [facility] Interpretation 04-23-2017 [facility] Code (34760) Alkaline phosphatase 76 45-117 U/L Invalid 7 - [address] (ALP) Interpretation 04-23-2017 [facility] Code ([id number]) Aspartate 8 15-37 U/L Low 04-23-2017 - [facility] aminotransferase 04-23-2017 [facility] (AST) ([id number]) Bilirubin (direct) 0.09 0.00-0.30 mg/dL Invalid 04-23-2017 - [facility] [address] Interpretation 04-23-2017 [facility] Code ([id number]) Bilirubin (total) 0.30 0.20-1.00 mg/dL Invalid 04-23-2017 - [facility] [address] Interpretation 04-23-2017 [facility] Code ([id number]) Globulin 3.9 2.3-3.5 g/dL High 04-23-2017 - [facility] 04-23-2017 [facility] ([id number]) Protein 7.3 6.4-8.2 g/dL Invalid 04-23-2017 - [facility] Interpretation 04-23-2017 [facility] Code ([id number]) lab report: lipid profile on 2017-04-23 Cholesterol 175 200 mg/dL Invalid 04-23-2017 - [facility] Interpretation Code 04-23-2017 Group ([id number]) HDL Cholesterol 110 mg/dL Invalid 04-23-2017 - [place] [facility] Interpretation Code 04-23-2017 Group ([id number]) LDL Cholesterol 51 0-130 mg/dL Invalid 04-23-2017 - [facility] Interpretation Code 04-23-2017 Group ([id number]) Lipoprotein.pre-bet 14 5-40 mg/dL Invalid 04-23-2017 - [facility] a mass conc Interpretation Code 04-23-20 17 Group ([id number]) Triglyceride 70 mg/dL Invalid 04-23-2017 - [facility] Interpretation Code 04-23-2017 Group ([id number]) very low density 14 5-40 mg/dL Invalid 04-23-2017 - [facility] lipoproteins Interpretation Code 017 Group ([id number]) office visit on 02-04-12 Dietary management yes Invalid Interpretatio n 04-09-2017 - [facility] education, guidance, Code 7 Group ([id number]) and counseling (procedure) Documentation of Done Invalid Interpretation 04-09-2017 - [facility] current medications Code 04-09-2017 Group ([id number]) (procedure) Fall risk assessment No Invalid Interpretat ion 04-09-2017 - [facility] Code 04-09-2017 Group (44 231) Protein mass conc Done Invalid Interpretation 04-09-2017 - [facility] Code 04-09-2017 Group (44 851) replaced document: midmark ecg observati ons on 2017-01-15 EKG QRS axis 39 deg 01-15-2017 - [facility] 01-15-2017 [facility] ([id number]) electrocardiogram Sinus Invalid 01-15-2017 - [address] interpretation Rhythm Interpretation Code 01-15 [facility] WITHIN ([id number]) NORMAL LIMITS GE use only - for 418 ms Invalid 01-15-2017 - [facility] [employer] import when Interpretation Cod e 01-15-2017 [facility] terms are not ([id number] ) otherwise specified Interpretation Sinus 01-15-2017 - [place] Rhythm 01-15-2017 [facility] WITHIN ([id number]) NORMAL LIMITS P [place] 30 deg 01-15-2017 - [address] 01-15-2017 [facility] ([id number]) P wave axis, 30 deg Invalid 01-15-2017 - [facility] electrocardiogram Interpretation Code [facility] ([id number]) UT Interval 174 ms 01-15-2017 - [place] 01-15-2017 [facility] ([id number]) UT interval, 174 ms Invalid 01-15-2017 - [facility] electrocardiogram Interpretation Code [facility] ([id number]) Pulse (Heart Rate) 66 BPM /min Invalid 01-15-2017 - [facility] Interpretation Code 01-15-2017 [facility] ([id number]) QRS axis, 39 deg Invalid 01-15-2017 - [address] electrocardiogram Interpretation Code [facility] ([id number]) QRS Duration 88 ms 01-15-2017 - [facility] 01-15-2017 [facility] ([id number]) QRS duration, 88 ms Invalid 01-15-2017 - [facility] electrocardiogram Interpretation Code [facility] ([id number]) QT Interval new path ms 01-15-2017 - [facility] 01-15-2017 [facility] ([id number]) QT interval, new path ms Invalid 01-15-2017 - [facility] [place] electrocardiogram Interpretation Code [facility] ([id number]) QTc Farah 418 ms 01-15-2017 - [place] 01-15-2017 [facility] ([id number]) T [place] -1 deg 01-15-2017 - [address] 01-15-2017 [facility] ([id number]) T wave axis, -1 deg Invalid 01-15-2017 - [facility] electrocardiogram Interpretation Code [facility] ([id number]) office visit on 02-01-12 Dietary management yes Invalid Interpretatio n 01-07-2017 - [facility] education, guidance, Code 7 Group ([id number]) and counseling (procedure) Documentation of Done Invalid Interpretation 01-07-2017 - [facility] current medications Code 01-07-2017 Group ([id number]) (procedure) Fall risk assessment Yes 7 - [facility] 01-07-2017 Group (44 691) Protein mass conc Done 01-07-2017 - [facility] 01-07-2017 Group (44 691) clinical lists update: preload on 2016-10-02 Left ventricular Ejection 65 % 03-0 7-2016 - 10-02-2016 [facility] fraction ([id number]) office visit on 01-07-28 Documentation of Done Invalid Interpretation 06-25-2016 - [facility] current medications Code 06-25-2016 Group ([id number]) (procedure) office visit: warfarin calc on 2015-12-13 Coagulation tissue 34.5 s 12-13-2015 - [address] factor induced in 12-13-2015 [facility] platelet poor ([id number] ) plasma INR Coag RelTime 3.0 {INR} 12-13-2015 - [facility] (PPP) 12-13-2015 [facility] ([id number]) INR in blood by 3.0 {INR} Invalid 12-13-2015 - [place] coagulation Interpretation Code 12-13-19 16 [facility] ([id number]) INR in blood by 2 to 3 Invalid 12-13-2015 - [place] coagulation Interpretation Code 12-13-19 16 [facility] ([id number]) INR in blood by Hospital lab 12-13-2015 - [address] coagulation 12-13-2015 [facility] ([id number]) international 2 to 3 12-13-2015 - [facility] normalized ratio 12-13-2015 [facility] (INR) range (45993) lab report: prothrombin time fingerstick on 2015-12-13 Coagulation tissue 34.5 SEC 11.9-14.4 High 12-13-2015 - [facility] factor induced in 12-13-2015 G roup ([id number]) platelet poor plasma office visit on 12-30-28 Dietary management yes Invalid 11-25-2015 - [facility] education, Interpretation Code 6 Group ([id number]) guidance, and counseling (procedure) Tobacco smoking Former smoker 11-25-2015 - [facility] status CAIS 11-25-2015 Group ( [id number]) Tobacco use [facility] Former smoker Invalid 6 - [facility] Interpretation Code 11-25-2015 Group ([id number]) clinical lists update: preload on 2015-11-24 Alanine 13 U/L 11-24-2015 - [facility] aminotransferase (ALT) 016 Group ([id number]) Albumin 4.2 g/dL 11-24-2015 - [facility] 11-24-2015 Group (44 691) Alkaline phosphatase 63 U/L Invalid 6 - [facility] (ALP) Interpretation Code 11-24-2015 Group ([id number]) ALP enzyme act/vol 63 U/L 11-24-2015 - [facility] (Bld) 11-24-2015 Group (44 691) Anion gap 11 mmol/L Invalid 11-24-2015 - [facility] Interpretation Code 11-24-2015 Group ([id number]) Anion gap 4 molar conc 11 Invalid 016 - [facility] Interpretation Code 11-24-2015 Group (05972) Anion gap molar conc 11 mmol/L 6 - [facility] 11-24-2015 Group (44 691) Aspartate 22 U/L 11-24-2015 - [facility] aminotransferase (AST) 016 Group ([id number]) Bilirubin (total) 0.3 mg/dL 11-24-2015 - [facility] 11-24-2015 Group (44 691) Calcium 9.8 mg/dL 11-24-2015 - [facility] 11-24-2015 Group (44 691) Chloride 100 mmol/L 11-24-2015 - [facility] 11-24-2015 Group (44 691) Cholesterol 168 mg/dL 11-24-2015 - [place] [facility] 11-24-2015 Group (44 691) Cholesterol in 0.75 11-24-2015 - [facility] LDL/Cholesterol in HDL 016 Group (60945) mass ratio Cholesterol to HDL 2.07 11-24-2015 - [facility] Ratio 11-24-2015 Group (44 691) CO2 28 mmol/L Invalid 11-24-2015 - [facility] Interpretation Code 11-24-2015 Group ([id number]) CO2 ppres (BldV) 28 mmol/L 11-24-2015 - [facility] 11-24-2015 Group (44 691) Creatinine 1.43 mg/dL High 11-24-2015 - [place] [facility] 11-24-2015 Group (44 691) Glucose 94 mg/dL Invalid 11-24-2015 - [facility] Interpretation Code 11-24-2015 Group ([id number]) Glucose mass conc 94 mg/dL 11-24-2015 - [facility] 11-24-2015 Group (44 691) HDL Cholesterol 81 mg/dL 11-24-2015 - [place] [facility] 11-24-2015 Group (44 691) LDL Cholesterol 61 mg/dL 11-24-2015 - [place] [facility] 11-24-2015 Group (44 691) LDL/HDL ratio, serum 0.75 Invalid - [facility] Interpretation Code 11-24-2015 Group ([id number]) Lipoprotein.pre-beta 26 mg/dL 6 - [facility] mass conc 11-24-2015 Group (44 691) Potassium 4.8 mmol/L 11-24-2015 - [facility] 11-24-2015 Group (44 691) Protein 7.0 g/dL 11-24-2015 - [facility] 11-24-2015 Group (44 691) Sodium 139 mmol/L 11-24-2015 - [facility] 11-24-2015 Group (44 691) Triglyceride 130 mg/dL 11-24-2015 - [facility] 11-24-2015 Group (44 691) Urea nitrogen 31 mg/dL High 11-24-2015 - [facility] 11-24-2015 Group (44 691) very low density 26 mg/dL Invalid 11-24-2015 - [facility] lipoproteins Interpretation Code 11-23- 016 Group ([id number]) office visit on 12-05-04 Protein mass conc yes 05-02-2015 - [facility] 05-02-2015 Group (44 691) Smoking cessation yes Invalid Interpretation 05-02-2015 - [facility] education Code 05-02-2015 Group (44 691) (procedure) lab report: prothrombin time w/inr on 2014-12-31 Coagulation tissue 23.1 SECONDS 11.7-14.9 High 01-01-20 15 - [facility] factor induced in 12-31-2014 Urmila jean ([id number]) platelet poor plasma replaced document: midmark ecg observati ons on 2014-10-12 EKG QRS axis 42 deg 10-12-2014 - [facility] 10-12-2014 [facility] ([id number]) electrocardiogram Sinus Invalid 10-12-2014 - [address] interpretation Rhythm Interpretation Code 10-12 [facility] WITHIN ([id number]) NORMAL LIMITS GE use only - for 427 ms Invalid 10-12-2014 - [address] [employer] import when Interpretation Cod e 10-12-2014 [facility] terms are not ([id number] ) otherwise specified Interpretation Sinus 10-12-2014 - [place] Rhythm 10-12-2014 [facility] WITHIN ([id number]) NORMAL LIMITS [place] 30 deg 10-12-2014 - [address] 10-12-2014 [facility] ([id number]) P wave axis, 30 deg Invalid 10-12-2014 - [facility] electrocardiogram Interpretation Code [facility] ([id number]) UT Interval 182 ms 10-12-2014 - [place] 10-12-2014 [facility] (92603) UT interval, 182 ms Invalid 10-12-2014 - [facility] electrocardiogram Interpretation Code [facility] ([id number]) Pulse (Heart Rate) 61 BPM /min Invalid 10-12-2014 - [address] Interpretation Code 10-12-2014 [facility] ([id number]) QRS axis, 42 deg Invalid 10-12-2014 - [address] electrocardiogram Interpretation Code [facility] ([id number]) QRS Duration 90 ms 10-12-2014 - [place] [facility] 10-12-2014 [facility] ([id number]) QRS duration, 90 ms Invalid 10-12-2014 - [facility] electrocardiogram Interpretation Code [facility] ([id number]) QT Interval new path ms 10-12-2014 - [facility] 10-12-2014 [facility] (51185) QT interval, new path ms Invalid 10-12-2014 - [place] electrocardiogram Interpretation Code [facility] ([id number]) QTc Farah 427 ms 10-12-2014 - [place] 10-12-2014 [facility] (74342) T [place] 15 deg 10-12-2014 - [address] 10-12-2014 [facility] ([id number]) T wave axis, 15 deg Invalid 10-12-2014 - [facility] electrocardiogram Interpretation Code [facility] ([id number]) office visit on 201 11-28-16 cardiac risk group B 10-12-2014 - 10-12-2014 [facility] (07757) General cardiovascular 4 % 10-12- - 10-12-[address] [facility] disease 10Y risk [#] (83879) [place]D'Agost[place] chart maintenance o n 2014-09-26 Thyroid 0.21 u[iU]/mL 09-26-2014 - [facility] stimulating 09-26-2014 Group ( [id number]) hormone (TSH) BUN/Creatinine 24.5 mg/mg High 09-26-2014 - [facility] Ratio 09-26-2014 Group (44 071) Hematocrit (HCT) 35.8 % Invalid 09-26-2014 - [facility] Interpretation Code 09-26-2014 Group ([id number]) Hematocrit Volume 35.8 % 09-26-2014 - [facility] Fraction (Bld) 09-26-2014 Grou p ([id number]) Hemoglobin (HGB) 11.5 g/dL 09-26-2014 - [facility] 09-26-2014 Group (44 691) Platelets 184 10*3/mm3 Invalid 09-26-2014 - [facility] Interpretation Code 09-26-2014 Group ([id number]) Platelets #/vol 184 10*3/mm3 09-26-2014 - [place] (Bld) 09-26-2014 Group (44 691) WBC #/vol (Bld) 6.8 10*9/L 09-26-2014 - [place] [facility] 09-26-2014 Group (44 691) WBC (Leukocytes) 6.8 10*9/L Invalid 09-26-2014 - [facility] Interpretation Code 09-26-2014 Group ([id number]) chart maintenance o n 2014-09-23 Magnesium 1.6 mg/dL 09-23-2014 - 09-23-2 015 [facility] ([id number]) Vital Signs Vital Sign Description Value / Unit Date Location The following section is limited to 5 en tries per type and includes entries from the following time range: [id number] - [id number] 2. BMI (Body Mass Index) 34.61 kg/m2 04-09-2017 - 04-09-2017 [facility] ([id number]) BMI (Body Mass Index) 35.94 kg/m2 01-07-2017 - 01-07-2017 [place] [facility] ([id number]) BMI (Body Mass Index) 34.11 kg/m2 06-25-2016 - 06-25-2016 [place] [facility] ([id number]) Body weight 88.27 kg 04-27-2020 [facility] ([id number]) BP Diastolic 78 mm[Hg] 04-27-2020 [facility] ([id number]) BP Diastolic 62 mm[Hg] 04-09-2017 - 04-09-[address] [facility] [address] [facility] ([id number]) BP Diastolic 60 mm[Hg] 01-07-2017 - 01-07-2017 [facility] ([id number]) BP Diastolic 70 mm[Hg] 06-25-2016 - 06-25-2016 [facility] ([id number]) BP Systolic 138 mm[Hg] 04-27-2020 [facility] ([id number]) BP Systolic 140 mm[Hg] 04-09-2017 - 04-09-2017 [facility] (69493) BP Systolic 140 mm[Hg] 01-07-2017 - 01-07-[address] [facility] [address] [facility] ([id number]) BP Systolic 160 mm[Hg] 06-25-2016 - 06-25-2016 [facility] ([id number]) BSA (Body Surface Area) 2 m2 06-25-2016 - 06-25-2016 [facility] ([id number]) Heart rate 66 /min 01-15-2017 - 01-15-2017 [facility] ([id number]) Heart rate 61 /min 10-12-2014 - 10-12-[address] [facility] [address] [facility] ([id number]) Height 165.1 cm 04-09-2017 - 04-09-2017 [facility] ([id number]) Height 165.1 cm 01-07-2017 - 01-07-[address] [facility] [address] [facility] ([id number]) Height 165.1 cm 11-25-2015 - 11-25-2015 [facility] ([id number]) Pulse (Heart Rate) 62 /min 04-27-2020 [facility] ([id number]) Pulse (Heart Rate) 58 /min 04-09-2017 - 04-09-2017 [place] [facility] ([id number]) Pulse (Heart Rate) 66 /min 01-15-2017 - 01-15-2017 [place] ([id number]) Pulse Oximetry 96 % 01-07-2017 - 01-07-2017 [facility] ([id number]) Respiratory Rate 20 /min 04-27-2020 [facility] ([id number]) Respiratory Rate 18 /min 04-09-2017 - 04-09-2017 [facility] ([id number]) Respiratory Rate 20 /min 06-25-2016 - 06-25-[address] [facility] ([id number]) Weight 94.35 kg 04-09-2017 - 04-09-[address] [facility] [address] [facility] ([id number]) Weight 97.98 kg 01-07-2017 - 01-07-2017 [facility] ([id number]) Weight 92.99 kg 06-25-2016 - 06-25-[address] [facility] [address] [facility] ([id number]) Encounters Date Type Reason Provider Location 10-31-2016 - Evaluation and Other darwin CLARK Facility: [facility] 11-01-2016 management of cyst, other site LAUREN Odell MEDICAL inpatient NO REFERRING DR MELO CLARK 04-27-2020 - Patient encounter Chronic kidney Yue ([place]) [facility] [place] edicine 04-27-2020 procedure disease stage [address] Comment: Essential hypertension (Prim gaston Dx); CKD (chronic kidney disease) Stage 3, GFR 30-59 ml/min; Mixed hyperlipidemia; Hypothyroidism, acquired; Paroxysmal atrial fibrillati on (HCC) 04-06-2020 - Patient encounter Willam Woodard) [facility] Medicine 04-06-2020 procedure Brenna Francois Comment: RE: Upcoming Appointment Que stion 04-05-2020 - Patient encounter Essential Yue ([place]) Family [facility] icine 04-05-2020 procedure hypertension [address] Comment: RE: Non-Urgent [facility] ion 03-28-2020 - Patient encounter Essential Yue ([place]) Family [facility] icine 03-28-2020 procedure hypertension [facility] Comment: RE:losartan 04-11-2020 - Refill Essential Willam Woodard) [facility] dicine 04-11-2020 hypertension Brenna Turner ([place]) [facility] ([place]) [facility] Comment: Refill Request RE:HCTZ 04-29-2020 - Telephone encounter Willam Woodard) [facility] 04-29-2020 Brenna Francois Comment: Results Procedures Procedure Name Date Provider Location *Hepatic Function Panel 04-09-2017 - Ezio Mancini MD [facility] 04-23-2017 ([id number]) DJN 04-09-2017 - MD [facility] 04-09-2017 ([id number]) Follow Up Appt 6 months 04-09-2017 - [facility] 04-09-2017 ([id number]) Lipid 1996 panel - Serum or 04-09-2017 - Ezio Mancini MD [facility] Plasma 04-23-2017 ([id number]) Thyrotropin [Units/volume] in 04-09-2017 - Bertah Morrison [facility] Serum or Plasma 04-23-2017 ([id number]) Dietary management education, 04-09-2017 - [place] guidance, and counseling 04-09-2017 ([id number]) *Hepatic Function Panel 04-09-2017 - Ezio Mancini MD [facility] 04-23-2017 ([id number]) DJN 04-09-2017 - Ezio Mancini MD [facility] 04-09-2017 ([id number]) Follow Up Appt 6 months 04-09-2017 - [facility] 04-09-2017 ([id number]) Lipid panel [AGGREGATE] 04-09-2017 - [facility] 04-23-2017 ([id number]) Thyroid stimulating hormone 04-09-2017 - Ezio Mancini MD [facility] (TSH) 04-23-2017 ([id number]) Lipid 1996 panel - Serum or 02-06-2017 - Ezio Mancini MD [facility] Plasma 04-09-2017 ([id number]) Thyrotropin [Units/volume] in 02-06-2017 - Bertha Morrison [facility] Serum or Plasma 04-09-2017 ([id number]) Thyroxine (T4) [Mass/volume] 02-06-2017 - Ezio Mancini MD [facility] in Serum or Plasma 04-09-2017 ([id number]) Lipid panel [AGGREGATE] 02-06-2017 - Ezio Mancini MD [facility] 04-09-2017 ([id number]) Thyroid stimulating hormone 02-06-2017 - Ezoi Mancini MD [facility] (TSH) 04-09-2017 ([id number]) Thyroxine (T4) 02-06-2017 - Ezio Mancini MD [facility] 04-09-2017 ([id number]) Ecg routine ecg w/least 12 01-15-2017 - Ezio Mancini MD [place] [facility] lds w/i&r 01-15-2017 ([id number]) Ecg routine ecg w/least 12 01-15-2017 - Ezio Mancini MD [place] [facility] lds w/i&r 01-15-2017 ([id number]) *Hepatic Function Panel 01-07-2017 - Ezio Mancini MD [facility] 04-09-2017 ([id number]) DJN 01-07-2017 - Ezio Mancini MD [facility] 04-04-2017 ([id number]) Ecg routine ecg w/least 12 01-07-2017 - Ezio Mancini [facility] [place] [facility] lds w/i&r 04-04-2017 ([id number]) Dietary management education, 01-07-2017 - [facility] guidance, and counseling 01-07-2017 ([id number]) *Hepatic Function Panel 01-07-2017 - Ezoi Mancini MD [facility] 04-09-2017 ([id number]) DJHaider 01-07-2017 - Ezio Mancini MD [facility] 04-04-2017 ([id number]) Follow Up Appt 3 months 01-07-2017 - Ezio Mancini MD [facility] 04-04-2017 ([id number]) EXCISION LUMBAR SPINAL C 10-31-2016 PROVIDER UNKNOWN [facility] ([id number]) MONITOR PERIP NERV ELEC 10-31-2016 PROVIDER UNKNOWN [facility] ([id number]) RELEASE LUMBAR NERVE OPE 10-31-2016 PROVIDER UNKNOWN [facility] ([id number]) Preoperative cardiovascular 10-02-[address] [facility] examination ([id number]) Preoperative cardiovascular 10-02-[address] [facility] examination ([id number]) Echocardiography 06-25-2016 - MD [facility] 06-25-2016 ([id number]) Follow Up Appt 6 months 06-25-2016 - Ezio Mancini MD [facility] 06-25-2016 ([id number]) Ecg routine ecg w/least 12 06-25-2016 - [facility] lds w/i&r 06-25-2016 ([id number]) Echocardiography 06-25-2016 - MD [facility] 06-25-2016 ([id number]) DJN 11-25-2015 - Ezio Mancini MD [facility] 11-25-2015 ([id number]) Follow Up Appt 6 months 11-25-2015 - Ezio Mancini MD [facility] 11-25-2015 ([id number]) DJN 11-25-2015 - Ezio Mancini MD [facility] 11-25-2015 ([id number]) Follow Up Appt 6 months 11-25-2015 - Ezio Mancini MD [facility] 11-25-2015 ([id number]) DJN 05-02-2015 - Ezio Mancini MD [facility] 05-02-2015 ([id number]) Documentation of current 05-02-2015 - Ezio Mancini MD [facility] medications 05-03-2015 ([id number]) Follow Up Appt 6 months 05-02-2015 - Ezio Mancini MD [facility] 05-02-2015 ([id number]) Smoking cessation education 05-02-2015 - Ezio Mancini MD [facility] 05-03-2015 ([id number]) DJN 05-02-2015 - Ezio Mancini MD [facility] 05-02-2015 ([id number]) Documentation of current 05-02-2015 - Ezio Mancini MD [facility] medications 05-03-2015 ([id number]) Follow Up Appt 6 months 05-02-2015 - Ezio Mancini MD [facility] 05-02-2015 ([id number]) Smoking cessation education 05-02-2015 - Ezio Mancini MD [facility] 05-03-2015 ([id number]) INR in Platelet poor plasma 03-29-2015 - Ezio Mancini MD [facility] by Coagulation assay 05-02-2015 ([id number]) INR in Platelet poor plasma 03-29-2015 - Ezio Mancini MD [facility] by Coagulation assay 05-02-2015 ([id number]) DJN 10-12-2014 - Ezio Mancini MD [facility] 10-12-2014 ([id number]) Documentation of current 10-12-2014 - Ezio Mancini MD [facility] medications 10-13-2014 ([id number]) Ecg routine ecg w/least 12 10-12-2014 - MD Julian [facility] lds w/i&r 10-12-2014 ([id number]) Follow Up Appt 6 months 10-12-2014 - Ezio Mancini MD [facility] 10-12-2014 ([id number]) DJN 10-12-2014 - Ezio Mancini MD [facility] 10-12-2014 ([id number]) Documentation of current 10-12-2014 - Ezio Mancini MD [facility] medications 10-13-2014 ([id number]) Ecg routine ecg w/least 12 10-12-2014 - Ezio Mancini MD [place] [facility] lds w/i&r 10-12-2014 ([id number]) Follow Up Appt 6 months 10-12-2014 - Ezio Mancini MD [facility] 10-12-2014 ([id number]) Left Heart Cath 09-27-2014 - MD [facility] 09-30-2014 ([id number]) Left Heart Cath 09-27-2014 - Ezio Mancini MD [facility] 09-30-2014 ([id number]) INR in Platelet poor plasma 09-24-2014 - Ezio Mancini MD [facility] by Coagulation assay 10-21-2014 ([id number]) INR in Platelet poor plasma 09-24-2014 - Ezio Mancini MD [facility] by Coagulation assay 10-21-2014 ([id number]) Plan of Treatment Plan Description Date Location DIABETES SCREEN DIABETES SCREEN 09-27-2022 - [facility] 09-27-2022 ([id number]) DTAP,TDAP,TD (2 - Td) DTAP,TDAP,TD (2 - Td) 09-26-2020 - [facility] 09-26-2020 ([id number]) INFLUENZA (#1) INFLUENZA (#1) 2020 - [facility] 03-29-2020 ([id number]) *Hepatic Function Panel *Hepatic Function Panel 10-21-2017 - [facility] 04-27-2017 ([id number]) *Lipid Profile CC PCP *Lipid Profile CC PCP 10-21-2017 - [facility] 04-27-2017 ([id number]) *Hepatic Function Panel *Hepatic Function Panel 10-21-2017 - [facility] 04-27-2017 ([id number]) *Lipid Profile CC PCP *Lipid Profile CC PCP 10-21-2017 - [facility] 04-27-2017 ([id number]) Appointment Appointment 10-14-2017 - [facility] 10-14-2017 ([id number]) *Hepatic Function Panel *Hepatic Function Panel 04-09-2017 - [facility] 04-23-2017 ([id number]) DJN DJN 04-09-2017 - [facility] 04-09-2017 ([id number]) Follow Up Appt 6 months Follow Up Appt 6 months 04-09-2017 - [facility] 04-09-2017 ([id number]) *Lipid Profile CC PCP *Lipid Profile CC PCP 04-09-2017 - [facility] 04-23-2017 ([id number]) *TSH *TSH 04-09-2017 - [facility] 04-23-2017 ([id number]) Appointment Appointment 04-09-2017 - [facility] 04-09-2017 ([id number]) *Hepatic Function Panel *Hepatic Function Panel 04-09-2017 - [facility] 04-23-2017 ([id number]) DJN DJN 04-09-2017 - [facility] 04-09-2017 ([id number]) Follow Up Appt 6 months Follow Up Appt 6 months 04-09-2017 - [facility] 04-09-2017 ([id number]) *Lipid Profile CC PCP *Lipid Profile CC PCP 04-09-2017 - [facility] 04-23-2017 ([id number]) *TSH *TSH 04-09-2017 - [facility] 04-23-2017 ([id number]) *Lipid Profile CC PCP *Lipid Profile CC PCP 02-06-2017 - [facility] 04-09-2017 ([id number]) *T4 (Total) *T4 (Total) 02-06-2017 - [facility] 04-09-2017 ([id number]) *TSH *TSH 02-06-[address] - [facility] 04-09-2017 ([id number]) *Lipid Profile CC PCP *Lipid Profile CC PCP 02-06-2017 - [facility] 04-09-2017 ([id number]) *T4 (Total) *T4 (Total) 02-06-2017 - [facility] 04-09-2017 ([id number]) *TSH *TSH 02-06-2017 - [facility] 04-09-2017 ([id number]) EKG (In office) EKG (In office) 01-15-2017 - [facility] 01-15-2017 ([id number]) Appointment Appointment 01-15-2017 - [facility] 01-15-2017 ([id number]) EKG (In office) EKG (In office) 01-15-2017 - [facility] 01-15-2017 ([id number]) *Hepatic Function Panel *Hepatic Function Panel 01-07-2017 - [facility] 04-09-2017 ([id number]) ROXANNE OLIVEIRA 01-07-2017 - [facility] 04-04-2017 ([id number]) Follow Up Appt 3 months Follow Up Appt 3 months 01-07-2017 - [facility] 04-04-2017 ([id number]) Appointment Appointment 01-07-2017 - [facility] 01-07-2017 ([id number]) *Hepatic Function Panel *Hepatic Function Panel 01-07-2017 - [facility] 04-09-2017 ([id number]) ROXANNE OLIVEIRA 01-07-2017 - [facility] 04-04-2017 ([id number]) Follow Up Appt 3 months Follow Up Appt 3 months 01-07-2017 - [facility] 04-04-2017 ([id number]) ROXANNE OLIVEIRA 06-25-2016 - [facility] 06-25-2016 ([id number]) Follow Up Appt 6 months Follow Up Appt 6 months 06-25-2016 - [facility] 06-25-2016 ([id number]) Haider Haider 06-25-2016 - [facility] 06-25-2016 ([id number]) Follow Up Appt 6 months Follow Up Appt 6 months 06-25-2016 - [facility] 06-25-2016 ([id number]) ROXANNE Haider 11-25-2015 - [facility] 11-25-2015 ([id number]) Follow Up Appt 6 months Follow Up Appt 6 months 11-25-2015 - [facility] 11-25-2015 ([id number]) Haider Haider 11-25-2015 - [facility] 11-25-2015 ([id number]) Follow Up Appt 6 months Follow Up Appt 6 months 11-25-2015 - [facility] 11-25-2015 ([id number]) [facility] 05-02-2015 - [facility] 05-02-2015 ([id number]) Follow Up Appt 6 months Follow Up Appt 6 months 05-02-2015 - [facility] 05-02-2015 ([id number]) [facility] 05-02-2015 - [facility] 05-02-2015 ([id number]) Follow Up Appt 6 months Follow Up Appt 6 months 05-02-2015 - [facility] 05-02-2015 ([id number]) *PT/INR - Standing Order *PT/INR - Standing Order 03-29-2015 - [facility] 05-02-2015 ([id number]) *PT/INR - Standing Order *PT/INR - Standing Order 03-29-2015 - [facility] 05-02-2015 ([id number]) [facility] 10-12-2014 - [facility] 10-12-2014 ([id number]) EKG (In office) EKG (In office) 10-12-2014 - [facility] 10-12-2014 ([id number]) Follow Up Appt 6 months Follow Up Appt 6 months 10-12-2014 - [facility] 10-12-2014 ([id number]) [facility] 10-12-2014 - [facility] 10-12-2014 ([id number]) EKG (In office) EKG (In office) 10-12-2014 - [facility] 10-12-2014 ([id number]) Follow Up Appt 6 months Follow Up Appt 6 months 10-12-2014 - [facility] 10-12-2014 ([id number]) Left Heart Cath Left Heart Cath 09-27-2014 - [facility] 09-28-2014 ([id number]) Left Heart Cath Left Heart Cath 09-27-2014 - [facility] 09-28-2014 ([id number]) *PT/INR - Standing Order *PT/INR - Standing Order 09-24-2014 - [facility] 09-27-2014 ([id number]) *PT/INR - Standing Order *PT/INR - Standing Order 09-24-2014 - [facility] 09-27-2014 ([id number]) ADVANCE DIRECTIVE ADVANCE DIRECTIVE 2000 - [facility] inic DISCUSSION DISCUSSION 2000 ([id number]) SHINGRIX VACCINE (1 of SHINGRIX VACCINE (1 of 1985 - [facility] 2) 2) 1985 (31432) BMP (BMP) (FOR REMOTE BMP (BMP) (FOR REMOTE [facility] USE) [facility] USE) Lab Routine CKD (04372) (chronic kidney disease) Stage 3, GFR 30-59 ml/min 04/27/2020 12:13 PM EDT no information [facility] ([id number]) Immunizations Vaccine Notes Status Date Location Influenza Vaccine, influenza virus (completed) 05-12-2017 - [facility] Split-Non Spec vaccine, unspecified 05-12-2017 ([id number]) formulation Influenza Seasonal - influenza, high dose (completed) 04-26-2016 - [facility] High Dose - Age 65+ seasonal, 04-26-2016 ([id number]) preservative-free Influenza Seasonal influenza, seasonal, (completed) 07-01-2015 - [facility] Inj Age 3+ injectable 07-01-2015 ([id number]) Influenza Seasonal influenza, seasonal, (completed) 05-13-2014 - [facility] Inj Age 3+ injectable 05-13-2014 ([id number]) Pneumococcal-13 Vac pneumococcal conjugate (completed) 04-26-2016 - [facility] Conjugate vaccine, 13 valent 04-26-2016 ([id number]) [facility] ([facility] 07-[facility] ([id number]) 23 valent Td, unspecified TD(adult) unspecified (completed) 07-29-1992 - [facility] formulation formulation 07-29-1992 ([id number]) Tdap (Age 7+) tetanus toxoid, reduced (completed) 09-26-2010 - [facility] diphtheria toxoid, and 09-26-2010 ([id number] 5) acellular pertussis vaccine, adsorbed Payers Payer Name Policy Number Location MEDICARE [id number] [facility] ([id number]) MEDICARE [id number] [facility] (44 195) [id number] [facility] (44 195) [facility] [id number] [facility] (44 195) The following information is from the original human readable contentNo Payer Records Found Social History Type Social History Date Location Description History of tobacco use Current smoker 12-26-1977 [facility] ([id number]) History SDOH Social 5 08-08-2019 - [facility] inic Connections Phone 08-08-2019 ([id number]) History of tobacco use Cigarette Smoker 12-26-1977 [facility] ([id number]) Cigarettes smoked 10-02-2019 - [facility] ic current (pack per day) - 04-27-2020 ([id number]) Reported Tobacco use and exposure Never used 10-02-2019 - [facility] 04-27-2020 ([id number]) Alcohol intake Current [facility]-02[facility] 04-27-2020 ([id number]) History SDOH Alcohol 1 08-08-2019 - [facility] linic Frequency 08-08-2019 ([id number]) Tobacco smoking status Former smoker 10-02-2019 - [facility] NHIS 04-27-2020 ([id number]) History SDOH Social 2 08-08-2019 - [facility] in[facility] Get Together 08-08-2019 ([id number]) History SDOH Social 3 08-08-2019 - [facility] in[facility] [employer] 08-08-2019 ([id number]) History SDOH Social 4 08-08-2019 - [facility] Living 08-08-2019 ([id number]) History SDOH Physical 0 08-08-2019 - [facility] Activity DPW 08-08-2019 ([id number]) History SDOH Education 12 08-08-2019 - [facility] 08-08-2019 ([id number]) Sex Assigned At Female [facility] ([id number]) Exposure to SARS-CoV-2 Not sure [facility] (event) ([id number]) The following information is from the original human readable contentNo Social History Records FoundNo Social History Records FoundNo Social History Records Found Summary Purpose Family History No Family History Records FoundNo Family History Records Found Advance Directives No Advanced Directives Records FoundNo Advanced Directives Records Found Assessments Diagnosis Essential hypertension Unspecified essential hypertension Diagnosis Essential hypertension Unspecified essential hypertension Diagnosis Essential hypertension - Primary Unspecified essential hypertension CKD (chronic kidney disease) Stage 3, GF R 30-59 ml/min Chronic kidney disease, Stage III (moder ate) Mixed hyperlipidemia Hypothyroidism, acquired Unspecified hypothyroidism Paroxysmal atrial fibrillation (HCC) Atrial fibrillation History of Present Illness 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 Since last office visit has been doing well. No ER visits or hospitalizations. No recent falls. Got flu shot about a week ago at [facility] PAF: Last saw cards at [facility] on 12/31/2019. No changes made to medications at that time. Blood work obtained at that time is in Epic and I have reviewed. Denies SOB, dyspnea, coughing, chest pain, palpitations, or leg edema. HTN: Patient is compliant with meds Yes Monitors bp at home: Yes. Denies side effects: Yes. Chest pain: No. Dyspnea: No. Edema: No. Palpitations: No. Syncope: No. Headache: No. Dizziness: No. Brought in the last 5 days of BPs and home. Had a couple of elevated BPs of 170/90' and another of 152/91. The rest were below 140/90 HYPERLIPIDEMIA: Patient is taking medications: Yes. Patient is watching diet: Yes. Patient denies myalgias: Yes. Patient denies gi upset: Yes HYPOTHYROIDISM: Taking synthroid as prescribed. Denies heat/cold intolerance, hair/skin/nail changes, constipation or diarrhea CKD: Continues to avoid NSAIDs and eating low salt diet. Urinating without difficulty. PAST MEDICAL HISTORY Diagnosis Date ? Basal cell carcinoma Dr. Harrison dermatology ? delivery delivered ? Chronic kidney disease (CKD), stage III (moderate) (HCC) ? GERD (gastroesophageal reflux disease) ? Gout ? H/O: hysterectomy ? Hyperlipidemia ? Hypertension ? Hypothyroidism ? Iron deficiency anemia ? Knee joint replacement status 2009 right ? Obesity (BMI 30-39.9) ? Osteoarthritis ? Paroxysmal atrial fibrillation (HCC) Dr. Mancini cardiology ? SCC (squamous cell carcinoma) face, right leg ? Skin cancer ? JOAN III (vulvar intraepithelial neoplasia III) ? Vitamin D deficiency ALLERGIES Diltiazem MEDICATIONS Current Outpatient Medications Medication Sig ? hydroCHLOROthiazide (HYDRODIURIL, ESIDRIX) 50 mg tablet Take 1 tablet by mouth once daily. ? losartan (COZAAR) 100 mg tablet Take 1 tablet by mouth once daily. ? levothyroxine (SYNTHROID) 100 mcg tablet Take 1 tablet by mouth daily before breakfast. ? metoprolol succinate ER (TOPROL XL) 50 mg 24 hr tablet Take 1 tablet by mouth once daily. ? allopurinol (ZYLOPRIM) 100 mg tablet Take 1 tablet by mouth once daily. For gout. ? ISOSORBIDE ORAL Take by mouth. ? ferrous sulfate 325 mg (65 mg iron) tablet Take 1 tablet by mouth twice daily with meals. ? simvastatin (ZOCOR) 40 mg tablet Take 1 tablet by mouth daily at bedtime. ? fluticasone (FLONASE) 50 mcg/actuation nasal spray Use 2 Sprays in each nostril once daily. Rinse mouth after use. ? Cholecalciferol, Vitamin D3, (VITAMIN D-3) 2,000 unit cap Take 1 capsule by mouth once daily. ? levothyroxine (SYNTHROID) 100 mcg tablet TAKE 1 TABLET DAILY BEFORE BREAKFAST ? amiodarone (CORDARONE) 200 mg tablet Take 1 tablet by mouth once daily. Two tablets by mouth twicedaily for 2 days then 1 tablet by mouth daily started January 10, 2017 ? acetaminophen (TYLENOL EXTRA STRENGTH) 500 mg tablet Take 500 mg by mouth as needed. ? RIVAROXABAN (XARELTO ORAL) Take 15 mg by mouth once daily. No current facility-administered medications for this visit. Medications and allergies reviewed by this provider. SOCIAL HISTORY Social History Tobacco Use ? Smoking status: Former Smoker Packs/day: 2.00 Years: 20.00 Pack years: 40.00 Types: Cigarettes Quit date: 12/26/1977 Years since quittin.3 ? Smokeless tobacco: Never Used Substance Use Topics ? Alcohol use: Yes Alcohol/week: 17.5 standard drinks Types: 7 Glasses of Wine (5oz) per week Frequency: Never ? Drug use: No REVIEW OF SYSTEMS All other reviewed and negative other than HPI. OBJECTIVE: BP 138/78 (BP Site: Left Arm, BP Position: Sitting, BP Cuff Size: Large Adult) Pulse 62 Resp 20 Wt 88.3 kg (194 lb 9.6 oz) BMI 32.38 kg/m? . Vital signs reviewed by this provider. APPEARANCE Well appearing, alert, in no acute distress, well-hydrated, well nourished. and Overweight HEART RRR with normal S1 and S2, no murmurs, no gallops, no JVD appreciated LUNG clear to auscultation. No wheezes, rhonchi, or rales EXTREMITIES Extremities normal, No deformities, No skin discoloration and No edema SKIN Skin color, texture, turgor normal, no suspicious rashes or lesions to exposed skin Component Latest Ref Rng & Units 09/28/2019 Color Yellow Yellow Clarity Clear Clear Glucose, Urine Negative mg/dL Negative Bilirubin, Urine Negative Negative Ketones, Urine Negative Negative Specific Harvey, Ur 1.005 - 1.030 1.020 Hemoglobin/Blood,Ur Negative Negative pH, Urine 4.5 - 8.0 6.0 Protein, Urine Negative mg/dL Negative Urobilinogen Normal Normal Nitrites Negative Negative Leukest Negative Trace (A) Comment SEE COMMENT Urine Greg Comment SEE COMMENT WBC, Urine 0 - 5 /HPF 0-5 RBC, Urine 0 - 3 /HPF 0-3 Epithelial Cells /HPF SEE COMMENT Protein, Total 6.3 - 8.0 g/dL 6.9 Albumin 3.9 - 4.9 g/dL 4.3 Calcium 8.5 - 10.2 mg/dL 10.3 (H) Bilirubin, Total 0.2 - 1.3 mg/dL 0.3 Alkaline Phosphatase 34 - 123 U/L 82 AST 13 - 35 U/L 44 (H) Glucose 74 - 99 mg/dL 91 BUN 7 - 21 mg/dL 34 (H) Creatinine 0.58 - 0.96 mg/dL 1.30 (H) Sodium 136 - 144 mmol/L 139 Potassium 3.7 - 5.1 mmol/L 3.9 Chloride 97 - 105 mmol/L 100 CO2 22 - 30 mmol/L 26 Anion Gap 9 - 18 mmol/L 13 ALT 7 - 38 U/L 37 eGFR- 47 eGFR-All Other Races . 39 WBC 3.70 - 11.00 k/uL 6.55 RBC 3.90 - 5.20 m/uL 4.73 Hemoglobin 11.5 - 15.5 g/dL 13.7 Hematocrit 36.0 - 46.0 % 42.6 MCV 80.0 - 100.0 fL 90.1 MCH 26.0 - 34.0 pG 29.0 MCHC 30.5 - 36.0 g/dL 32.2 RDW-CV 11.5 - 15.0 % 14.8 Platelet Count 150 - 400 k/uL 197 MPV 9.0 - 12.7 fL 11.2 Absolute nRBC <0.01 k/uL <0.01 Total Cholesterol, Nonfasting <200 mg/dL 168 Triglycerides, Nonfasting <150 mg/dL 79 HDL Cholesterol, Nonfasting >39 mg/dL 104 LDL Cholesterol, Nonfasting <100 mg/dL 48 Non HDL Cholesterol, Nonfasting <130 mg/dL 64 VLDL Cholesterol, Nonfasting <30 mg/dL 16 Total Chol/HDL Ratio, Nonfasting <5.10 mg/dL 1.62 LDL/HDL Ratio, Nonfasting <2.54 mg/dL 0.46 TSH 0.270 - 4.200 uU/mL 2.420 SHINGRIX VACCINE(1 of 2) due on 1985 ADVANCE DIRECTIVE DISCUSSION due on 2000 DTAP,TDAP,TD(2 - Td) due on 09/26/2020 DIABETES SCREEN due on 09/27/2022 BONE DENSITY Completed INFLUENZA Completed PNEUMOVAX AGE 65 AND OVER WITH 5YR LOOKBACK Completed MENINGOCOCCAL CONJUGATE Completed ASSESSMENT/PLAN: 1. Essential hypertension - ICD9: 401.9, ICD10: I10 (primary diagnosis) - normal BP reading in office today - Continue current medication(s) - Encouraged dietary sodium restriction/DASH diet - Recommended regular aerobic exercise. - Recommend home blood pressure monitoring, to bring results in on next visit - Discussed need and benefit for weight loss. - Recheck in 6 months, sooner should new symptoms or problems arise. - Goal of BP <140/90 - Continue to monitor BP at home. If readings continue to be greater than 140/90 let us know - Recommended no refined sugar, low refined starch, healthy oil intake (olive oil), healthy protein (fish) along the lines of the Mediterranean diet. 2. CKD (chronic kidney disease) Stage 3, GFR 30-59 ml/min - ICD9: 585.3, ICD10: N18.3 - BMP (BMP) (FOR REMOTE [facility] USE) 3. Mixed hyperlipidemia - ICD9: 272.2, ICD10: E78.2 - recent blood work in December shows good control - Continue current medication. - Follow up in 6 months. - Encouraged following a low carbohydrate, healthy oil intake diet. 4. Hypothyroidism, acquired - ICD9: 244.9, ICD10: E03.9 - Instructed patient on importance of taking on an empty stomach either first thing in the morning or at bedtime. - Follow up in 6 months 5. Paroxysmal atrial fibrillation (HCC) - ICD9: 427.31, ICD10: I48.0 - follow-up with cardiology as scheduled Yue Mccauleyloglizette, SILVERSMITH APPRENTICE.OLIVER Prescription instructions reviewed with patient as applicable. Patient advised if symptoms do not improve or if symptoms worsen sooner, to contact their primary care physician. Potential red flag symptoms discussed with the patient. Reviewed appropriate action plan to take if red flag symptoms occur. Patient agreeable to treatment plan. documented in this encounter Additional Source Comments FOR RECORDS PERTAINING TO PATIENTS WHO ARE OR HAVE BEEN ENROLLED IN A CHEMICAL DEPENDENCY/SUBSTANCE ABUSE PROGRAM, SOME INFORMATION MAY BE OMITTED. This clinical summary was aggregated from multiple sources. Caution should be exercised in using it in the provision of clinical care. This summary normalizes information from multiple sources, and as a consequence, information in this document may materially changethe coding, format and clinical context of patient data. In addition, data may be omittedin some cases. CLINICAL DECISIONS SHOULD BE BASED ON THE PRIMARY CLINICAL RECORDS. [facility] provides no warranty or guarantee of the accuracy or completeness of information in this document. UNRECOGNIZED CONTENT PROVIDED BELOW FOR UNRECOGNIZED SECTION INFORMATION SOURCE DATE CREATED AUTHOR AUTHOR'S ORGANIZATIO N 01/22/2018 [facility] DATE CREATED AUTHOR AUTHOR'S ORGANIZATIO N 04/29/2020 [facility] Gian salgado UNRECOGNIZED CONTENT PROVIDED BELOW FOR UNRECOGNIZED SECTION Source Comments In the event this information is protected by the Federal Confidentiality of Alcohol and Drug Abuse Patient Records regulations: The Federal rules restrict any use of the information to criminally investigate or prosecute any alcohol or drug abuse patient.[facility] the event this information is protected by the Federal Confidentiality of Alcohol and Drug Abuse Patient Records regulations: The Federal rules restrict any use of the information to criminally investigate or prosecute any alcohol or drug abuse patient.[facility] the event this information is protected by the Federal Confidentiality of Alcohol and Drug Abuse Patient Records regulations: The Federal rules restrict any use of the information to criminally investigate or prosecute any alcohol or drug abuse patient.[facility] the event this information is protected by the Federal Confidentiality of Alcohol and Drug Abuse Patient Records regulations: The Federal rules restrict any use of the information to criminally investigate or prosecute any alcohol or drug abuse patient.[facility] the event this information is protected by the Federal Confidentiality of Alcohol and Drug Abuse Patient Records regulations: The Federal rules restrict any use of the information to criminally investigate or prosecute any alcohol or drug abuse patient.[facility] the event this information is protected by the Federal Confidentiality of Alcohol and Drug Abuse Patient Records regulations: The Federal rules restrict any use of the information to criminally investigate or prosecute any alcohol or drug abuse patient.[facility] Center[facility] the event this information is protected by the Federal Confidentiality of Alcohol and Drug Abuse Patient Records regulations: The Federal rules restrict any use of the information to criminally investigate or prosecute any alcohol or drug abuse patient.[facility] UNRECOGNIZED CONTENT PROVIDED BELOW FOR UNRECOGNIZED SECTION Miscellaneous Notes Telephone Encounter - Ar Mariee Ma - 03/28/2020 5:17 PM EDTMychart sent. elephone Encounter - Willam Ceja) - 03/28/2020 11:33 AM EDTLooks like we sent requested medication to local and mail order pharmacy on 03/18. I am not sure whatshe means by not being able to fill the medication. They should just send to her. Is her insurancenot covering it? documented in this encounterTelephone Encounter - Willam Ceja) - 04/05/2020 1:11 PM EDTNotified via Flux. documented in this encounterTelephone Encounter - Amisha Soils Lpn, LPN - 04/29/2020 9:32 AM EDTSpoke with pt gave information provided. Pt voices understanding. elephone Encounter - Amisha Solis Lpn, LPN - 04/29/2020 9:31 AM EDT----- Message from Yue Patel) Podlogar sent at 04/29/2020 8:45 AM EDT ----- Please call patient and let her know kidney function stable with some improvement. Continue medications, low salt diet, and avoiding NSAID products. Thanks, Yue Podlogar, SILVERSMITH APPRENTICE.CONTROLS TECHNICIAN documented in this encounter UNRECOGNIZED CONTENT PROVIDED BELOW FOR UNRECOGNIZED SECTION Reason for Visit Reason Onset Date Comments Refill Request 04/11/2020 Reason Onset Date Comments Results 04/29/2020
== END ==
PROVIDERS: PCP Family Medicine; Referring Provider Internal Medicine Cardiovascular Disease; Visit Provider Internal Medicine Cardiovascular Disease
DX: E78.5 Hyperlipidemia, unspecified (principal); I10 Essential (primary) hypertension
CPT/HCPCS: 36415; 80061; 80076; 84439

== ENCOUNTER → 2020-12-28 13:45 | Outpatient (CLI) | payer MEDICARE, OTHER, SELFPAY ==
[2020-11-14 13:25] VITALS: BMI 31.4
--- NOTE | 2020-12-28 13:48 | ECHOD_ITS ---
Reason For Study: MURMUR Procedure This was a 2D Doppler, Color Flow transthoracic echocardiogram. The study was technically difficult. Exam performed in department. Left Ventricle Normal LV size. Left ventricular systolic function is normal. The estimated ejection fraction is 65 %. There is evidence of diastolic dysfunction. No regional wall motion abnormalities noted. Right Ventricle Normal RV size. Normal systolic function. Atria The left atrium is moderately enlarged. Normal right atrium. No doppler evidence for ASD. Mitral Valve There is no mitral annular calcification. Normal mitral valve. Mild-Moderate (1-2+) mitral valve insufficiency. Tricuspid Valve Normal tricuspid valve. Trivial tricuspid valve insufficiency. Unable to estimate RV systolic pressure/pulmonary artery pressure due to technically difficult study. Aortic Valve Trisinus/trileaflet aortic valve. Mild focal aortic valve calcification. Pulmonic Valve The pulmonic valve is not well visualized. Great Vessels Normal sized aortic root. Pericardium/Pleural No pericardial effusion. MMode/2D Measurements & Calculations LVIDd: 5.0 cm IVSd: 0.94 cm Ao root diam: 2.9 cm LVIDs: 3.3 cm LVPWd: 0.94 cm RVDd: 2.9 cm FS: 35.5 % LAV(MOD-bp): 65.6 ml LA A4 area: 20.8 cm2 LA dimension(2D): 3.4 cm LAV(MOD-bp) Indexed: 34.0 ml/m2 LAV(MOD-sp2): 68.0 ml LAV(MOD-sp4): 59.9 ml RA A4 area: 14.9 cm2 Time Measurements MV dec time: 0.30 sec Doppler Measurements & Calculations MV E max noé: 71.6 cm/sec Lat Peak E' Noé: 7.5 cm/sec Med Peak E' Noé: 4.1 cm/sec MV A max noé: 105.0 cm/sec E/E' lat: 9.6 E/E' med: 17.3 MV E/A: 0.68 Ao V2 max: 162.2 cm/sec LV V1 max: 135.2 cm/sec PA V2 max: 100.8 cm/sec Ao max P.5 mmHg LV V1 max P.3 mmHg ECHO/Echo Complete Interpretation Summary The study was technically difficult. Left ventricular systolic function is normal. The estimated ejection fraction is 65 %. The left atrium is moderately enlarged. Mild-Moderate (1-2+) mitral valve insufficiency. Trivial tricuspid valve insufficiency. Mild focal aortic valve calcification. Unable to estimate RV systolic pressure/pulmonary artery pressure due to techni kelle difficult study. There is evidence of diastolic dysfunction. Ordering Physician: Louis Pozo Referring Physician: Edward Ceja Performed By: Teressa Mathews RDCS, RVT
== END ==
PROVIDERS: PCP Family Medicine; Referring Provider Internal Medicine Cardiovascular Disease; Visit Provider Internal Medicine Cardiovascular Disease
DX: R01.1 Cardiac murmur, unspecified (principal); I34.0 Nonrheumatic mitral (valve) insufficiency; I48.0 Paroxysmal atrial fibrillation; I10 Essential (primary) hypertension; E78.5 Hyperlipidemia, unspecified
CPT/HCPCS: 93306